=== PATIENT | female | born 1955 | race Caucasian/White ===

== ENCOUNTER 2016-02-13 12:16 | Inpatient (IN) | payer OTHER ==
[~2016-02-13] VITALS: Ht 157.5 cm; Wt 80.0 kg
[2016-02-13] MEDS ORDERED: SOD CHLORIDE 0.9% 1,000 ML IV STA (12:30)
[2016-02-13] MEDS ORDERED: ONDANSETRON INJ 8 MG in DEXTROSE 5% 50 ML IVPB STA (12:30)
[2016-02-13] MEDS ORDERED: morphine 4 MG/ML VIAL IV STA (12:30)
[2016-02-13] MEDS ORDERED: ONDANSETRON 4 MG INJ ONE (12:56)
[2016-02-13] MEDS ORDERED: ONDANSETRON 4 MG INJ IV STA ×2 (12:57→16:21)
[2016-02-13 13:05] LABS: BASOPHILS % 0.2 % (0.0-2.0); EOSINOPHILS % 0.3 % (0.0-7.0); HEMATOCRIT 26.6 % (37.0-47.0); HEMOGLOBIN 8.6 g/dl (12.0-16.0); LYMPHOCYTES # 1.1 10^3/ul (0.8-2.9); LYMPHOCYTES % 10.2 % (15.0-51.0); MEAN CORPUSCULAR HEMOGLOBIN 27.5 pg (29.0-33.0); MEAN CORPUSCULAR HGB CONC 32.3 g/dl (32.0-37.0); MEAN CORPUSCULAR VOLUME 85.2 fl (82.0-101.0); MEAN PLATELET VOLUME 6.6 fl (7.4-10.4); MONOCYTE # 0.7 10^3/ul (0.3-0.9); MONOCYTES % 6.5 % (0.0-11.0); NEUTROPHIL # 8.8 10^3/ul (1.6-7.5); NEUTROPHILS % 82.8 % (39.0-77.0); PLATELET COUNT 284 10^3/UL (140-440); RED BLOOD COUNT 3.12 10^6/ul (4.20-5.40); RED CELL DISTRIBUTION WIDTH 17.2 % (11.5-14.5); UNCORRECTED WBC 10.7 10^3/ul (4.8-10.8); WHITE BLOOD COUNT 10.7 10^3/ul (4.8-10.8)
[2016-02-13 13:06] LABS: CONDITION 1; LH ANALYZER COMMENTS 1
[2016-02-13 13:08] LABS: ALBUMIN 2.9 g/dl (3.3-4.9); CHLORIDE 98 mmol/L (97-110); SODIUM 139 mmol/L (135-144)
[2016-02-13 13:11] LABS: ALANINE AMINOTRANSFERASE 17 IU/L (13-69); ALBUMIN/GLOBULIN RATIO 0.76; ALKALINE PHOSPHATASE 110 IU/L (42-121); ANION GAP 16 (8-16); ASPARTATE AMINO TRANSFERASE 18 IU/L (15-46); BILIRUBIN,INDIRECT 0.4 mg/dl (0-1.1); BILIRUBIN,TOTAL 0.4 mg/dl (0.2-1.3); BLOOD UREA NITROGEN 11 mg/dl (7-20); CALCIUM 9.6 mg/dl (8.4-10.2); CARBON DIOXIDE 29 mmol/L (21-31); CREATININE 0.59 mg/dl (0.44-1.00); GLUCOSE 106 mg/dl (70-220); TOTAL PROTEIN 6.7 g/dl (6.1-8.1)
[2016-02-13 13:12] LABS: INR 1.23; PROTIME 15.6 Sec (12.2-14.2); PT RATIO 1.2
[2016-02-13 13:13] LABS: PARTIAL THROMBOPLASTIN TIME 37.2 Sec (25.0-35.0)
[2016-02-13 13:27] LABS: TROPONIN-I < 0.012 ng/ml (0.00-0.12)
[2016-02-13] MEDS ORDERED: ATEN-51 PO (14:26)
[2016-02-13] MEDS ORDERED: LOV40I SC (14:27)
[2016-02-13] MEDS ORDERED: GLIP5TAB13 PO (14:28)
[2016-02-13] MEDS ORDERED: FOLI-49 PO (14:28)
[2016-02-13] MEDS ORDERED: INSU100C SQ (14:33)
[2016-02-13] MEDS ORDERED: LEVO500T72 PO (14:34)
[2016-02-13] MEDS ORDERED: MECL-77 PO (14:35)
[2016-02-13] MEDS ORDERED: OXYC5CAP17 PO (14:36)
[2016-02-13] MEDS ORDERED: MORP15TA92 PO (14:36)
[2016-02-13] MEDS ORDERED: LACT1CAP47 PO (14:37)
[2016-02-13] MEDS ORDERED: PANT40TA3 PO (14:37)
[2016-02-13] MEDS ORDERED: TRAZ50TA18 PO (14:38)
[2016-02-13] MEDS ORDERED: [UNRECOGNIZED DRUG - CODE] PO (14:38)
[2016-02-13] MEDS ORDERED: ONDA4TAB8 PO (14:39)
[2016-02-13] MEDS ORDERED: ACET-2047 PO (14:39)
[2016-02-13] MEDS ORDERED: IODIXANOL LOCM 100 ML BTL ONE (15:10)
[2016-02-13] MEDS ORDERED: SOD CHLORIDE 0.9% 100 ML ONE (15:10)
--- NOTE | 2016-02-13 15:48 | RADRPT ---
PROCEDURE: CT Abdomen and Pelvis with contrast. CLINICAL INDICATION: Rectal bleeding. TECHNIQUE: Multiple contiguous axial CT images of the abdomen and pelvis were obtained following t he administration of 99 cc of Visipaque 320. Coronal and sagittal reconstructions were also perform ed. CTDIvol (mGy): 17.85; Total Exam DLP (mGy-cm): 1212.30. One or more of the following dose reduction techniques were utilized: - Automated exposure control. - Adjustment of the mA and/or kV according to patient size. - Use of iterative reconstruction technique. COMPARISON: None. FINDINGS: Limited imaging of the lower thorax demonstrates a trace left pleural effusion. Multiple tiny nonca lcified pulmonary nodules are seen throughout the lung bases. The liver and spleen are homogeneous in enhancement. The spleen is mildly enlarged measuring 13.0 cm in a craniocaudal dimension. The liver measures approximately 18.0 cm in a craniocaudal dimension. The gallbladder and right adrenal gland are unremarkable. Mild heterogeneity and nodularity of th e left adrenal gland is observed. Severe fatty replacement of the pancreas is observed. There is a large heterogeneously enhancing mass measuring approximately 10.9 x 10.1 x 7.6 cm which o riginates from the interpolar region of the left kidney. Tumor invasion is seen throughout the left renal vein. Imaging appearance favors the presence of a large renal cell carcinoma. Extension thro ugh the perirenal space into the pararenal space is observed. Nodular thickening and enhancement of the perirenal fascia is present. There is a 4.1 x 2.5 x 3.3 cm enhancing mass within the lateral c onal fascia. A small enhancing nodule is seen within the left paracolic gutter. The abdominal aorta is normal in caliber. Enlarged retroperitoneal/periaortic lymph nodes are presen t. For example, on image [id number], there is a 1.7 cm lymph node. Multiple additional similar slightly smaller lymph nodes are present. The stomach and small and large intestines are unremarkable. The appendix is normal. There are no focal inflammatory changes of the mesentery. There is no mesenteric lymphadenopathy. There is no a scites. The bladder is collapsed. The uterus and adnexa are unremarkable aside from prominent adnexal veins , left greater than right. There is no free pelvic fluid. There is no pelvic sidewall or inguinal l ymphadenopathy. A moderate volume of formed stool is seen within the rectum. Minimal mild concentri c rectal wall thickening with perirectal infiltration are also present suggesting underlying inflamm ation. Lytic lesions are seen within the T11, L1 and L5 vertebral bodies. There is a lytic lesion of the r ight inferior pubic ramus. Multiple lytic lesions of the left lower ribs are present. Body wall so ft tissues are unremarkable. IMPRESSION: Large heterogeneously enhancing mass of the left kidney with invasion of the left renal vein. Imagi ng findings are most compatible with a large renal cell carcinoma. There is extension of tumor beyo nd the perirenal fascia and into the lateral conal fascia and into the paracolic gutter. Neoplastic retroperitoneal lymphadenopathy. Heterogeneous nodular enlargement of the left adrenal gland raises suspicion for adrenal metastasis. Skeletal metastases. Multiple small noncalcified pulmonary nodules throughout the lung bases suggest the presence of pulm onary metastases. Moderate volume of formed stool within the rectum with mild associated concentric rectal wall thicke antonella and dean rectal infiltration. Fecal impaction with underlying rectal inflammation is suspected . RPTAT: HLST .Keke Narvaez MD, Date Time Electronically viewed and signed by .Keke Narvaez MD, on 02/13/2016 15:48 .T/
[2016-02-13] MEDS ORDERED: SOD CHLORIDE 0.9% 250 ML IV ONE (16:02)
--- NOTE | 2016-02-13 16:13 | ERA ---
ER Documentation Chief Complaint Date/Time DATE: 02/13/16 TIME: 16:05 Chief Complaint BIB RA FOR EVAL OF BLOOD IN STOOL THIS AM. HPI Patient is a 61-year-old female who was transferred to the emergency department for evaluation of abdominal pain and rectal bleeding. Unfortunately the patient is a poor historian and is unable to describe the amount or color of the rectal bleeding. She describes the abdominal pain is sharp and located in the right upper quadrant and the left lower quadrant. She denies any flank or back pain. She denies any dysuria or fever. She does complain of some nausea without vomiting. She states that she does not think she has ever had any problems with rectal bleeding before however she does recall having received transfusions in the past. She is nonambulatory and therefore cannot tell me whether she feels dizzy or lightheaded. She denies any chest pain or dyspnea, abnormal bruises or rashes, she does not think she is on any blood thinners. She is unable to tell me why she is in the assisted. ROS All systems reviewed and are negative except as per history of present illness. Medications Home Meds Reported Medications Ondansetron Hcl* (Zofran*) 4 Mg Tablet, 4 MG PO Q8 Y for NAUSEA AND OR VOMITING , TAB 02/13/16 Acetaminophen* (Acetaminophen*) 650 Mg Tablet, 650 MG PO Q6H Y for PAIN AND OR ELEVATED TEMP, #30 TAB 02/13/16 Trazodone Hcl* (Trazodone Hcl*) 50 Mg Tablet, 25 MG PO QHS, #30 TAB 02/13/16 Sunitinib Malate (Sutent) 50 Mg Capsule, 50 MG PO DAILY, CAP 02/13/16 Lactobacillus Acidophilus (Probiotic) 1 Each Capsule, 1 CAP PO DAILY, CAP 02/13/16 Pantoprazole* (Protonix*) 40 Mg Tablet.dr, 40 MG PO DAILY, TAB 02/13/16 Oxycodone Hcl* (IR) (Oxycodone Hcl*) 5 Mg Capsule, 10 MG PO Q4H Y for PAIN, CAP 02/13/16 Morphine Sulfate* (Ms Contin*) 15 Mg Tablet.sa, 15 MG PO Q12 Y for PAIN, TAB 02/13/16 Meclizine Hcl* (Meclizine Hcl*) 25 Mg Tablet, 25 MG PO Q8H Y for DIZZINESS, TAB STARTED 02-12-16 STOP 02-15-16 02/13/16 Levofloxacin* (Levaquin*) 500 Mg Tablet, 500 MG PO DAILY, TAB STARTED 02-11-16 STOP 02-17-16 02/13/16 Insulin Lispro (Humalog) 100 Unit/1 Ml Cartridge, 0 SQ AC MEALS AND BEDTIME 60-149 = 0 UNITS 150-199 = 1 UNIT 200-249 = 2 UNIT 250-299 = 3 UNIT 300-349 = 4 UNIT 350-399 = 5 UNIT ABOVE 400 = 6 UNIT THEN CALL MD CALL MD IF BELOW 60 02/13/16 Glipizide* (Glipizide*) 5 Mg Tablet, 5 MG PO AC BREAKFAST, TAB 02/13/16 Folic Acid* (Folic Acid*) 1 Mg Tablet, 5 MG PO DAILY, TAB 02/13/16 Enoxaparin Sodium* (Enoxaparin Sodium*) 40 Mg/0.4 Ml Syringe, 40 MG SC DAILY, SYR FIRST DAY 02-12-16 LAST DAY 02-21-16 02/13/16 Atenolol* (Atenolol*) 25 Mg Tablet, 25 MG PO DAILY, #30 TAB 02/13/16 Allergies Allergies: Coded Allergies: No Known Allergy (Unverified , 02/13/16) PMhx/Soc Medical and Surgical Hx: pt denies Surgical Hx Hx Cardiac Disorders: Yes (htn) Hx Miscellaneous Medical Probl: Yes (dm, kidney ca) Hx Alcohol Use: Yes (occasionally) Hx Substance Use: No Hx Tobacco Use: No Smoking Status: Never smoker FmHx Family History: diabetes Physical Exam Vitals Vital Signs Date Time Temp Pulse Resp B/P Pulse Ox O2 Delivery O2 Flow Rate FiO2 02/13/16 13:20 86 21 119/71 100 Room Air 02/13/16 12:24 98.3 95 18 168/92 100 Physical Exam Const: Well-developed obese female who appears to be chronically ill lying on the bed Head: Atraumatic normocephalic Eyes: Pale conjunctiva ENT: Normal External Ears, Nose and Mouth. Neck: Full range of motion..~ No meningismus. Resp: Clear to auscultation bilaterally, poor inspiratory effort Cardio: Regular rate and rhythm, no murmurs Abd: Soft, non tender, non distended. Normal bowel sounds Skin: No petechiae or rashes Ext: No cyanosis, or edema Neur: Awake and alert, generally weak rectal: Patient's diaper was full of bright red blood with clots , there were no masses on rectal exam Result Diagram: 02/13/16 1225 02/13/16 1225 Results 24 hrs Laboratory Tests Test 02/13/16 12:25 Activated Partial Thromboplast Time 37.2Sec Alanine Aminotransferase (ALT/SGPT) 17IU/L Albumin 2.9g/dl Albumin/Globulin Ratio 0.76 Alkaline Phosphatase 110IU/L Anion Gap 16 Aspartate Amino Transf (AST/SGOT) 18IU/L Basophils # 0.010^3/ul Basophils % 0.2% Blood Morphology Comment Blood Urea Nitrogen 11mg/dl Calcium Level 9.6mg/dl Carbon Dioxide Level 29mmol/L Chloride Level 98mmol/L Creatinine 0.59mg/dl Direct Bilirubin 0.00mg/dl Eosinophils # 0.010^3/ul Eosinophils % 0.3% Globulin 3.80g/dl Glucose Level 106mg/dl Hematocrit 26.6% Hemoglobin 8.6g/dl INR International Normalized Ratio 1.23 Indirect Bilirubin 0.4mg/dl Lymphocytes # 1.110^3/ul Lymphocytes % 10.2% Mean Corpuscular Hemoglobin 27.5pg Mean Corpuscular Hemoglobin Concent 32.3g/dl Mean Corpuscular Volume 85.2fl Mean Platelet Volume 6.6fl Monocytes # 0.710^3/ul Monocytes % 6.5% Neutrophils # 8.810^3/ul Neutrophils % 82.8% Nucleated Red Blood Cells # 0.010^3/ul Nucleated Red Blood Cells % 0.0/100WBC Platelet Count 69017^3/UL Potassium Level 4.0mmol/L Prothrombin Time 15.6Sec Prothrombin Time Ratio 1.2 Red Blood Count 3.1210^6/ul Red Cell Distribution Width 17.2% Sodium Level 139mmol/L Total Bilirubin 0.4mg/dl Total Protein 6.7g/dl Troponin I < 0.012ng/ml White Blood Count 10.710^3/ul Current Medications Medications (Trade) Dose Ordered Sig/Jose C Route PRN Reason Start Time Stop Time Status Last Admin Dose Admin Sodium Chloride 1,000 ml @ 1,000 mls/hr Q1H STAT IV 02/13/16 12:30 02/13/16 13:29 DC 02/13/16 13:00 Ondansetron HCl/ Dextrose (Zofran Inj/D5W) 54 ml @ 200 mls/hr ONCE STAT IVPB 02/13/16 12:30 02/13/16 12:57 DC Morphine Sulfate (morphine) 4 mg ONCE STAT IV 02/13/16 12:30 02/13/16 12:33 DC 02/13/16 13:00 Ondansetron HCl (Zofran Inj) 4 mg STK-MED ONCE .ROUTE 02/13/16 12:56 02/13/16 12:57 DC Ondansetron HCl (Zofran Inj) 4 mg ONCE STAT IV 02/13/16 12:57 02/13/16 12:58 DC 02/13/16 13:01 IV Flush 10 ml 10 ml STK-MED ONCE .ROUTE 02/13/16 15:10 02/13/16 15:11 DC Sodium Chloride (NS) 100 ml @ ud STK-MED ONCE .ROUTE 02/13/16 15:10 02/13/16 15:11 DC Iodixanol 100 ml 100 ml STK-MED ONCE .ROUTE 02/13/16 15:10 02/13/16 15:11 DC Sodium Chloride (NS) 250 ml @ 0 mls/hr Q0M ONCE IV 02/13/16 16:02 02/13/16 16:05 DC Procedures/MDM EKG: Rate/Rhythm: Normal sinus rhythm at 90 bpm QRS, ST, T-waves: No changes consistent w/ acute ischemia Impression: No evidence of ischemia or arrhythmia 1600: Patient has had a second grossly bloody diaper here with bright red blood and clots. She however remains hemodynamically stable. I have ordered 2 units of packed red cells to be given once available. 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
[2016-02-13] MEDS ORDERED: DOCUSATE SODIUM 100 MG CAP PO PRN (17:00)
[2016-02-13] MEDS ORDERED: BISACODYL 10 MG SUPP PR PRN (17:00)
[2016-02-13] MEDS ORDERED: morphine 2 MG INJ IV PRN (17:00)
[2016-02-13] MEDS ORDERED: MAGNESIUM HYDROXIDE 30ML CUP PO PRN (17:00)
[2016-02-13] MEDS ORDERED: traZODone 50 MG TAB PO PRN (17:00)
[2016-02-13] MEDS ORDERED: ACETAMINOPHEN 325 MG TAB PO PRN (17:00)
[2016-02-13] MEDS ORDERED: NACL 0.9% 3 ML SYG IV SCH (17:00)
[2016-02-13] MEDS ORDERED: MECLIZINE 25 MG TAB PO PRN (17:00)
[2016-02-13] MEDS ORDERED: GLUCOSE GEL 15 GRAM TUBE BUCCAL PRN (17:30)
[2016-02-13] MEDS ORDERED: GLUCAGON 1 MG INJ IM PRN (17:30)
[2016-02-13] MEDS ORDERED: GLUCOSE GEL 15 GRAM TUBE PO PRN ×2 (17:30)
[2016-02-13] MEDS ORDERED: DEXTROSE 50% 50 ML SYRINGE IV PRN ×2 (17:30)
[2016-02-13] MEDS ORDERED: SOD CHLORIDE 0.9% 1,000 ML IV ONE (18:00)
[2016-02-13] MEDS ORDERED: SOD CHLORIDE 0.9% 250 ML IV* ONE (18:19)
--- NOTE | 2016-02-13 18:36 | CONS ---
Date/Time of Note Date/Time of Note DATE: 02/13/16 TIME: 18:31 Assessment/Plan Assessment/Plan Additional Assessment/Plan Rectal bleeding * Evaluate for IBD versus possible metastasis * consents to colonoscopy. Advised of risks/benefits/alternatives of procedure and is agreeable to proceed * Review CT abdomen * PPI drip * Monitor H&H every 6 hours, transfuse 2 units for hemoglobin less than 7.5 * Correct INR with FFP as needed Kidney cancer * Reports diagnosis 1 month from [facility] * Unsure staging and prognosis Abdominal pain/nausea/nonbloody bilious vomiting * Evaluate for PUD * Consents to EGD. Advised of risks/benefits/alternatives of procedure and is agreeable to proceed Further recommendations depend on clinical course, Patient seen in collaboration with Dr. Lee Consultation Date/Type/Reason Admit Date/Time Initial Consult Date Type of Consultation: Gastroenterology Reason for Consultation Rectal bleeding 24 HR Interval Summary Free Text/Dictation 61-year-old obese female transferred to ED with complaints of 1 day of rectal bleeding. Patient currently at [facility] after discharge from [facility] due to inability to ambulate. Patient originally treated at [place] for new kidney cancer diagnosis. Patient unsure of prognosis and staging. Patient denies any treatment for cancer. Patient denies previous episode of rectal bleeding, familial history of colon cancer, IBD, diarrhea, and diverticulosis. Patient also reported intermittent chest pain and dizziness 1 day. Patient reports few episodes of nausea with nonbloody bilious vomiting. Denies hematemesis ( coffee-ground and fady red) and GERD symptoms. Patient also has PMH of recently diagnosed diabetes. Exam/Review of Systems Vital Signs Vitals Vital Signs Date Time Temp Pulse Resp B/P Pulse Ox O2 Delivery O2 Flow Rate FiO2 02/13/16 17:59 75 17 84/57 100 Room Air 02/13/16 12:24 98.3 Exam Constitutional: alert, oriented, well developed Psych: nl mood/affect, no complaints Head: normocephalic Eyes: EOMI ENMT: nl external ears & nose, nl lips & teeth, nl nasal mucosa & septum Respiratory: normal air movement Cardiovascular: regular rate and rhythm Gastrointestinal: soft, tender (Diffuse) 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: SURGICAL COORDINATOR II-XII intact Results Result Diagram: 02/13/16 1225 02/13/16 1225 Results 24 hrs Laboratory Tests Test 02/13/16 12:25 Activated Partial Thromboplast Time 37.2 H Alanine Aminotransferase (ALT/SGPT) 17 Albumin 2.9 L Albumin/Globulin Ratio 0.76 Alkaline Phosphatase 110 Anion Gap 16 Aspartate Amino Transf (AST/SGOT) 18 Basophils # 0.0 Basophils % 0.2 Blood Morphology Comment Blood Urea Nitrogen 11 Calcium Level 9.6 Carbon Dioxide Level 29 Chloride Level 98 Creatinine 0.59 Direct Bilirubin 0.00 Eosinophils # 0.0 Eosinophils % 0.3 Globulin 3.80 H Glucose Level 106 Hematocrit 26.6 L Hemoglobin 8.6 L INR International Normalized Ratio 1.23 Indirect Bilirubin 0.4 Lymphocytes # 1.1 Lymphocytes % 10.2 L Mean Corpuscular Hemoglobin 27.5 L Mean Corpuscular Hemoglobin Concent 32.3 Mean Corpuscular Volume 85.2 Mean Platelet Volume 6.6 L Monocytes # 0.7 Monocytes % 6.5 Neutrophils # 8.8 H Neutrophils % 82.8 H Nucleated Red Blood Cells # 0.0 Nucleated Red Blood Cells % 0.0 Platelet Count 284 Potassium Level 4.0 Prothrombin Time 15.6 H Prothrombin Time Ratio 1.2 Red Blood Count 3.12 L Red Cell Distribution Width 17.2 H Sodium Level 139 Total Bilirubin 0.4 Total Protein 6.7 Troponin I < 0.012 White Blood Count 10.7 Medications Medications Current Medications Folic Acid (Folic Acid) 5 mg DAILY PO ; Start 02/14/16 at 09:00 Meclizine HCl (Antivert) 25 mg Q8H PRN PO DIZZINESS; Start 02/13/16 at 17:00 Morphine Sulfate (Ms Contin (Er)) 15 mg Q12 PO ; Start 02/13/16 at 21:00 Oxycodone HCl (Roxicodone) 10 mg Q4H PRN PO PAIN; Start 02/13/16 at 17:00 Sunitinib (Sutent) 50 mg DAILY PO ; Start 02/14/16 at 09:00; Status UNV Trazodone HCl (Desyrel) 25 mg QHS PRN PO INSOMNIA; Start 02/13/16 at 17:00 Lactobacillus Acidoph/ Bulgaricus 1 tab 1 tab DAILY PO ; Start 02/14/16 at 09:00 Sodium Chloride (NS) 1,000 ml @ 100 mls/hr Q10H IV ; Start 02/13/16 at 21:00 Ondansetron HCl (Zofran Inj) 4 mg Q6H PRN IV NAUSEA AND/OR VOMITING; Start 02/12 at 17:00 Acetaminophen (Tylenol Tab) 650 mg Q6H PRN PO PAIN LEVEL 1-3 OR FEVER; Start at 17:00 Morphine Sulfate (morphine) 2 mg Q4H PRN IV PAIN LEVEL 7-10; Start 02/13/16 at 17:00 Docusate Sodium (Colace) 100 mg Q12H PRN PO CONSTIPATION; Start 02/13/16 at 17: 00 Magnesium Hydroxide (Milk Of Mag) 30 ml DAILY PRN PO CONSTIPATION; Start at 17:00 Bisacodyl (Dulcolax Supp) 10 mg DAILY PRN NC CONSTIPATION; Start 02/13/16 at 17: 00 Pantoprazole (Protonix Iv) 40 mg DAILY@06 IV ; Start 02/14/16 at 06:00 Phytonadione 10 mg 10 mg ONCE ONCE SC ; Start 02/13/16 at 21:00; Stop 02/13/16 at 21:01 Levofloxacin/ Dextrose (Levaquin 500mg/ D5W 100 ml (Pmx)) 100 ml @ 100 mls/hr ONCE ONCE IVPB ; Start 02/13/16 at 21:00; Stop 02/13/16 at 21:59 Insulin Aspart (Novolog Insulin Pen) NOVOLOG *MILD* ALGORI... Q4 SC ; Start 02/12 at 21:00 Miscellaneous Information 1 ea NOTE XX ; Start 02/13/16 at 17:30 Glucose (Glutose) 15 gm Q15M PRN PO DECREASED GLUCOSE; Start 02/13/16 at 17:30 Glucose (Glutose) 22.5 gm Q15M PRN PO DECREASED GLUCOSE; Start 02/13/16 at 17:30 Dextrose (D50w Syringe) 25 ml Q15M PRN IV DECREASED GLUCOSE; Start 02/13/16 at 17:30 Dextrose (D50w Syringe) 50 ml Q15M PRN IV DECREASED GLUCOSE; Start 02/13/16 at 17:30 Glucagon (Glucagen) 1 mg Q15M PRN IM DECREASED GLUCOSE; Start 02/13/16 at 17:30 Glucose (Glutose) 15 gm Q15M PRN BUCCAL DECREASED GLUCOSE; Start 02/13/16 at 17: 30 Miscellaneous Information MEDICATION REQUIRES CLARIFICATI... Q8H XX ; Start 02/13/16 at 17:30 Sodium Chloride 1,000 ml @ 1,000 mls/hr Q1H ONCE IV Last administered on t 17:51; Admin Dose 1,000 MLS/HR; Start 02/13/16 at 18:00; Stop 02/13/16 at 18: 59 Sodium Chloride (NS) 250 ml @ 0 mls/hr Q0M ONCE IV* ; Start 02/13/16 at 18:19; Stop 02/13/16 at 18:20; Status ROBERTO TATUM Feb 13, 2016 18:36
--- NOTE | 2016-02-13 19:33 | HP ---
DATE OF ADMISSION: 02/13/2016 PRIMARY CARE PHYSICIAN: None. REFERRING ONCOLOGIST: Shoaib Lang MD CHIEF COMPLAINT ON ADMISSION: Transfer from a local retirement facility with active rectal bleeding. HISTORY OF PRESENT ILLNESS: This is a 61-year-old female with a recent diagnosis of metastatic spindle cell carcinoma (sarcoma), diabetes mellitus; hypertension. She has been on atenolol along with sliding scale insulin as an outpatient. Patient also has been on Lovenox for DVT prophylaxis and was recently discharged from [facility] on 02/11/2016, where she was admitted with generalized weakness. 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 On admission there, she was noted to have generalized weakness and also episodes of hematuria that resolved by the time of discharge. At the time of discharge, her hemoglobin was around 10.4. The patient denies any previous GI bleeding, and specifically, no previous history of rectal bleeding. She has been at the retirement [facility] and since 02/11/2016; therefore, 48 hours ago. She was discharged on Levaquin for a urinary tract infection. Today, she was noted to have a large amount of blood through the rectum with clots. She was noted to be pale; therefore, transferred via 911 from [facility] to [facility]. Here in the ER, she is noted to be pale. She has pale icterus. She had gross acute rectal bleeding with clots in large amount in her diaper. Her blood pressure has been in the upper and she is visibly and significantly severely weak and lethargic. Her labs drawn upon arrival reported a hemoglobin of 8.9, which has already dropped from 2 days ago , but likely this hemoglobin is even lower, as she is definitely symptomatic from her anemia and ongoing bleeding currently. She had a CAT scan of the abdomen and pelvis here which basically showed metastatic carcinoma, with a large heterogeneous enhancing mass of the left kidney, with invasion of the left renal vein. Also neoplastic retroperitoneal lymphadenopathy, pulmonary metastasis, mild associated concentric rectal wall thickening and perirectal infiltration. The patient is being transfused currently 2 units of packed red blood cells based on her significant drop in hemoglobin and likely even lower than what is reported here and symptomatic anemia. Also, her INR is 1.23 in setting of acute bleeding; therefore, she will receive FFP, plus a possible transfusion. I will also give her a dose of vitamin K. Gastroenterology has been consulted, Dr. Lee, his physician office administrative assistant, is seeing the patient currently, and likely the patient will need to be scoped by tomorrow. I will continue her home medication; however, she was on a chemotherapeutic agent, apparently. I will have Dr. Horn or Dr. Lang see the patient while she is here, in order to reevaluate her diagnosis, prognosis, and recommendation for treatments. The patient is being admitted to telemetry for now with a possible upgrade to ICU, if needed. SHE IS FULL CODE; unfortunately, with serious diagnosis of metastatic carcinoma and now rectal bleeding. ALLERGIES: NO KNOWN ALLERGIES. PAST MEDICAL HISTORY: Includes: 1. A recent diagnosis of metastatic spindle cell carcinoma with involvement of the lung, the bones and retroperitoneal lymphadenopathy on CAT scan. 2. Hypertension. 3. Diabetes mellitus. 4. Generalized weakness that has been ongoing. PAST SURGICAL HISTORY: None, except for kidney biopsy done at [facility] at the time of diagnosis last year. SOCIAL HISTORY: The patient lives with family. She denies any history of smoking. She very rarely drinks, maybe once every 3 years, occasionally. REVIEW OF SYSTEMS: As per HPI. The patient currently denying hematuria but severe rectal bleeding is noted. No hematemesis. No nausea or vomiting. She is actually hungry and thirsty currently. No chest pain. No shortness of breath, just generalized weakness. No fevers. No chills. No diaphoresis. OUTPATIENT MEDICATION 1. Levaquin 500 mg p.o. daily. 2. Sunitinib malate 50 mg p.o. daily. 3. Lovenox 40 mg subcutaneously daily. 4. Atenolol 25 mg daily p.o. 5. Tylenol 650 mg p.o. q.6h. p.r.n. pain. 6. MS Contin 15 mg p.o. q.12h. 7. Oxycodone 10 mg p.o. q.4h. p.r.n. pain. 8. Trazodone 25 mg p.o. at bedtime p.r.n. insomnia. 9. Probiotic 1 tab p.o. daily. 10. Meclizine 25 mg p.o. q8h. p.r.n. dizziness. 11. Zofran 4 mg p.o. q.8h. p.r.n. nausea, vomiting. 12. Protonix 40 mg p.o. daily. 13. Glipizide 5 mg p.o. q.a.c. 14. Lispro sliding scale insulin q.a.c. and at bedtime. 15. Folic acid 5 mg p.o. daily. PHYSICAL EXAMINATION VITAL SIGNS: Temperature 98.3, blood pressure latest 184/54 - this is prior to blood transfusion. Patient is saturating 100% on room air, respiratory rate of 17. GENERAL: She is alert, oriented x4. She is lethargic. She seems tired and she is notably pale with some areas of ecchymosis on her arms. HEENT: Pupils are equally round and reactive to light. Extraocular muscles are intact. Anicteric sclerae, but pale sclerae noted. NECK: No JVD, no thyromegaly. HEART: Regular rate and rhythm. LUNGS: Clear to auscultation bilaterally. ABDOMEN: Soft, nondistended; however, she does have tenderness to palpation, left flank area, left lower abdomen, all the suprapubic area and lower abdomen area bilaterally, from left to right. Again, was noted, large amount of blood and clots in her diaper from her rectal area. EXTREMITIES: Lower extremity no edema, clubbing or cyanosis. Again, patient is noted to be pale. NEUROLOGIC: Grossly intact, but generalized weakness noted. LABORATORY DATA: White blood cell count 10.7, hemoglobin 8.6, hematocrit 26.6, platelet count of 284. Chemistry with sodium of 139, potassium 4.0, chloride 98 , bicarbonate 29, BUN 11, creatinine 0.59, glucose of 106, calcium 9.6, total bilirubin 0.4, AST 18, ALT 17, alkaline phosphatase 110. Troponin less than 0.012. Total protein 6.7, albumin of 2.9. INR is 1.23, PT 15.6, PTT 37.2. ELECTROCARDIOGRAM: Sinus rhythm with a short MO. RADIOLOGICAL DATA: CAT scan of the abdomen and pelvis is showing large heterogeneous enhancing mass, left kidney, with invasion of the left renal vein , compatible with large renal cell carcinoma. Extension of tumor beyond the perirenal facia into the lateral conal fascia, and into the pericolic gutter. Neoplastic retroperitoneal lymphadenopathy. Atherogenesis nodular enlargement of the left adrenal gland, suspicious for adrenal metastasis, skeletal metastasis. Multiple small, noncalcified pulmonary nodules throughout lung bases, consistent with pulmonary metastasis, which is already known and noted previously. She is also noted to have possibly fecal impaction, but this may be actually blood and clots that were seen viscerally. ASSESSMENT AND PLAN This is a 61-year-old, unfortunate female with: 1. Acute significant rectal bleeding with a drop in hemoglobin, symptomatic anemia. She is getting 2 units of packed red blood cells right now, with subsequent H and H. She is also going to get FFP. Clear liquids for now, n.p.o. after breakfast. GI is consulted. We will keep a close eye on her. I am also concerned seeing this left renal vein invasion; that the patient could be having, actually, a vascular bleed from there. Therefore, close monitoring and we will consult vascular surgery, if needed. 2. Metastatic spindle cell carcinoma, with metastasis to Lung, bones and large left renal and adrenal masses PATIENT IS FULL CODE. She is on oral chemotherapeutic agent currently. I will contact Dr. Lang and have oncology see the patient on this admission. 3. Hypertension. Given her acute bleeding and hypotensive episodes, we will discontinue atenolol for now. 4. Diabetes mellitus, minimal intake. I will discontinue the Glipizide. We will keep her on the sliding scale insulin. 5. Lethargic, generalized weakness. Most likely related to acute bleeding currently. We will continue to monitor. 6. Urinary tract infection, diagnosed from outside hospital. Has been on Levaquin. We will continue Levaquin for now, and get final cultures from [facility] to see if any adjustments are needed. 7. Coagulopathy, most likely related to metastatic disease. We will give her again FFP in setting of acute bleeding, vitamin K x1 and monitor INR. 8. Prophylaxis. Protonix for gastrointestinal prophylaxis. SCDs to lower extremity for deep vein thrombosis prophylaxis. DISPOSITION: The patient is admitted to telemetry; however, if need be, she may be upgraded to ICU. Blood transfusion with packed red blood cells and FFP. Close monitoring. Oncology consult in the morning. GI consult already placed and seeing patient currently. Dictated By: JOSE SALMERON/JEANE Conf#: [id number] DID#: [id number] CC: SHOAIB LANG MD;*EndCC* MTDD
[2016-02-13] MEDS ORDERED: BISACODYL (EC) 5 MG TAB PO ONE ×2 (20:00→23:00)
[2016-02-13] MEDS ORDERED: MAGNESIUM CITRATE 300 ML BTL PO ONE (20:00)
[2016-02-13 20:26] VITALS: PULSE 88
[2016-02-13 21:00] VITALS: Ht 157.5 cm; Wt 80.0 kg
[2016-02-13] MEDS ORDERED: PHYTONADIONE 10 MG/ML INJ SC ONE (21:00)
[2016-02-13] MEDS ORDERED: POLYETHYLENE GLYCOL 3350 119 GM POWDER PO ONE ×2 (21:00→23:00)
[2016-02-13] MEDS ORDERED: LEVOFLOXACIN 500MG/D5W (PMX) 100 ML IVPB ONE (21:00)
[2016-02-13 21:05] VITALS: BP 108/62; RESP 18
[2016-02-13] MEDS: PANTOPRAZOLE IV 80 MG in SOD CHLORIDE 0.9% 100 ML IV SCH (22:46)
[2016-02-13] MEDS: SOD CHLORIDE 0.9% 1,000 ML IV SCH (22:46)
[2016-02-13] MEDS: morphine (ER) 15 MG TAB PO SCH (22:47)
[2016-02-13] MEDS: INSULIN ASPART [NOVOLOG] 3 ML PEN SC SCH (23:22)
[2016-02-14] VITALS (17 sets, daily range): BP systolic 92–134; BP diastolic 53–72; PULSE 80–112; RESP 14–25
[2016-02-14] MEDS: INSULIN ASPART [NOVOLOG] 3 ML PEN SC SCH ×6 (01:19→21:00)
[2016-02-14] MEDS: [UNRECOGNIZED DRUG - REMARK] XX SCH ×4 (01:20→17:27)
[2016-02-14] MEDS: ONDANSETRON 4 MG INJ IV PRN (01:44)
[2016-02-14] MEDS: PANTOPRAZOLE IV 80 MG in SOD CHLORIDE 0.9% 100 ML IV SCH ×2 (05:17→16:20)
[2016-02-14] MEDS ORDERED: PANTOPRAZOLE 40 MG INJ IV SCH (06:00)
[2016-02-14] MEDS: LACTULOSE ENEMA 1,000 ML BTL PR SCH ×6 (07:00→16:21)
--- NOTE | 2016-02-14 08:37 | RADRPT ---
PROCEDURE: US Abdomen Complete. CLINICAL INDICATION: Abdominal pain, history of kidney cancer/ TECHNIQUE: Multiple real-time images were acquired of the patient's abdomen and retroperitoneum ut ilizing a high resolution transducer. COMPARISON: CT abdomen/pelvis from 02/13/2016 FINDINGS: The liver measures 19.0 cm and demonstrates coarsened echotexture. There is no intrahepatic biliary ductal dilatation. The extrahepatic common bile duct measures 5 mm. The main portal vein is patent w ith proper directional flow. The gallbladder is without stones, wall thickening, or pericholecystic fluid. The visualized pancreas is unremarkable. The spleen measures 14.6 cm. The right kidney measures 10.9 cm. The left kidney measures 12.4 cm. There are no renal calculi or h ydronephrosis bilaterally. There is a 1.8 cm hypoechoic and possibly cystic lesion projecting from the upper pole of the right kidney. No vascular flow is noted within it. The left kidney as abnormal with a heterogeneous 9.5 x 6.0 x 9.1 cm solid mass with minimal vascular flow noted to arise from its mid pole. There is a similar round 5.1 cm heterogeneous mass projecti ng off the lower pole of the left kidney. Immediately inferior to the left kidney, there is a simil ar 4.6 x 3.9 x 5.0 cm heterogeneous mass. The visualized abdominal aorta and IVC are grossly unremarkable. IMPRESSION: Markedly abnormal left kidney with a large heterogeneous 9.5 cm mass arising from its mid pole as we ll as a similar 5.1 cm mass projecting off its lower pole and a 5 cm mass immediately below its lowe r pole. Findings correlate with similar lesions seen in and below the left kidney on the CT study f rom yesterday which are highly suspicious for renal cell carcinoma. The liver is enlarged and demonstrates coarsened echotexture which is nonspecific and can be seen wi th fatty infiltration although early chronic liver disease can have a similar appearance. No defini te morphologic changes of cirrhosis are identified. No cholelithiasis or acute cholecystitis. Normal CBD. Mild splenomegaly. RPTAT: EE Physician Gracia Date Time Electronically viewed and signed by Physician Gracia on 02/14/2016 08:36 RA/
[2016-02-14] MEDS: SOD CHLORIDE 0.9% 1,000 ML IV SCH ×2 (08:42→16:21)
[2016-02-14] MEDS: FOLIC ACID 1 MG TAB PO SCH (08:43)
[2016-02-14] MEDS: LACTOBACILLUS CHEW TAB PO SCH (08:43)
[2016-02-14] MEDS: morphine (ER) 15 MG TAB PO SCH ×2 (08:43→20:30)
[2016-02-14] MEDS ORDERED: SUNITINIB PO SCH (09:00)
[2016-02-14 14:34] LABS: BASOPHIL # 0.1 10^3/ul (0.0-0.1); BASOPHILS % 0.8 % (0.0-2.0); EOSINOPHILS % 0.2 % (0.0-7.0); HEMATOCRIT 23.1 % (37.0-47.0); HEMOGLOBIN 7.7 g/dl (12.0-16.0); LYMPHOCYTES # 0.9 10^3/ul (0.8-2.9); LYMPHOCYTES % 10.5 % (15.0-51.0); MEAN CORPUSCULAR HGB CONC 33.2 g/dl (32.0-37.0); MEAN CORPUSCULAR VOLUME 87.1 fl (82.0-101.0); MEAN PLATELET VOLUME 7.1 fl (7.4-10.4); MONOCYTE # 0.4 10^3/ul (0.3-0.9); MONOCYTES % 4.7 % (0.0-11.0); NEUTROPHIL # 7.1 10^3/ul (1.6-7.5); NEUTROPHILS % 83.8 % (39.0-77.0); PLATELET COUNT 128 10^3/UL (140-440); RED BLOOD COUNT 2.65 10^6/ul (4.20-5.40); RED CELL DISTRIBUTION WIDTH 15.8 % (11.5-14.5); UNCORRECTED WBC 8.5 10^3/ul (4.8-10.8); WHITE BLOOD COUNT 8.5 10^3/ul (4.8-10.8)
[2016-02-14 14:41] LABS: CONDITION 1; LH ANALYZER COMMENTS 1; SUSPECT 1
[2016-02-14 14:42] LABS: ALBUMIN 2.5 g/dl (3.3-4.9)
[2016-02-14 14:43] LABS: INR 1.05; PROTIME 13.7 Sec (12.2-14.2); PT RATIO 1.1
[2016-02-14 14:43] LABS: POTASSIUM 4.2 mmol/L (3.5-5.1)
[2016-02-14 14:45] LABS: ALBUMIN/GLOBULIN RATIO 0.78; BILIRUBIN,INDIRECT 0.7 mg/dl (0-1.1); BILIRUBIN,TOTAL 0.7 mg/dl (0.2-1.3); CREATININE 0.59 mg/dl (0.44-1.00); TOTAL PROTEIN 5.7 g/dl (6.1-8.1)
[2016-02-14 14:46] LABS: CALCIUM 8.6 mg/dl (8.4-10.2); MAGNESIUM 1.9 mg/dl (1.7-2.5)
--- NOTE | 2016-02-14 15:46 | PN ---
Date/Time of Note Date/Time of Note DATE: 02/14/16 TIME: 15:28 Assessment/Plan VTE Prophylaxis VTE Prophylaxis Intervention: SCD's Lines/Catheters IV [facility]from [facility] Urinary Cath still in place: No Assessment/Plan Assessment/Plan 61-year-old, unfortunate female with: 1. Acute significant rectal bleeding with a drop in hemoglobin, symptomatic anemia. S/p 2 units pRBC and 2 units FFP, repeat HB at 7.7, she is going to get 2 more units of pRBC Colonoscopy today. And further recs to follow 2. Metastatic spindle cell carcinoma, with metastasis to Lung, bones and large left renal and adrenal masses PATIENT IS FULL CODE. She is or is to be on oral chemotherapeutic agent. Dr. Bejarano or covering physician to see the patient on this admission. 3. Hypertension. Discontinue Atenolol for now. 4. Diabetes mellitus, minimal intake. Sliding scale insulin. 5. Lethargic, generalized weakness. Most likely related to acute bleeding currently. Continue to monitor and transfusing additional 2 units pRBC today dean procedure 6. Urinary tract infection diagnosed at [facility]. Continue Levaquin. 7. Coagulopathy, most likely related to metastatic disease. We will give her again FFP in setting of acute bleeding, vitamin K x1 and monitor INR. 8. Prophylaxis. Protonix for gastrointestinal prophylaxis. SCDs to lower extremity for deep vein thrombosis prophylaxis. DISPOSITION: The patient is admitted to telemetry; however, if need be, she may be upgraded to ICU. Blood transfusion with packed red blood cells and FFP. Close monitoring. Oncology consult in the morning. GI consult already placed and seeing patient currently. Subjective 24 Hr Interval Summary Free Text/Dictation Patient stable but still with ongoing bleeding Hb at 7.7 post transfusion and to receive additional 2 units pRBC Being prepped for colonoscopy currently Exam/Review of Systems Vital Signs Vitals Vital Signs Date Time Temp Pulse Resp B/P Pulse Ox O2 Delivery O2 Flow Rate FiO2 02/14/16 12:31 89 02/14/16 11:20 97.9 18 118/68 96 02/13/16 19:38 Room Air Intake and Output 02/13/16 02/13/16 02/14/16 15:00 23:00 07:00 Intake Total 350 ml 1050 ml Output Total 800 ml Balance 350 ml 250 ml Exam Constitutional: alert, obese, oriented, other (lethargic ) Respiratory: clear to auscultation, normal air movement Cardiovascular: nl pulses, regular rate and rhythm Gastrointestinal: non-tender, soft Musculoskeletal: nl extremities to inspection Extremities: normal pulses, other (no edema, clubbing or cyanosis ) 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: [employer] II-XII intact, nl mental status, nl speech, nl strength Results Result Diagram: 02/14/16 1420 02/14/16 1420 Results 24 hrs Laboratory Tests Test 02/13/16 23:18 02/14/16 01:10 02/14/16 03:21 02/14/16 04:30 Bedside Glucose 205 193 161 138 Test 02/14/16 08:13 02/14/16 12:21 02/14/16 14:20 Bedside Glucose 110 118 Activated Partial Thromboplast Time Pending Alanine Aminotransferase (ALT/SGPT) 26 Albumin 2.5 L Albumin/Globulin Ratio 0.78 Alkaline Phosphatase 75 Anion Gap 12 Aspartate Amino Transf (AST/SGOT) 20 Basophils # 0.1 Basophils % 0.8 Blood Morphology Comment Blood Urea Nitrogen 15 Calcium Level 8.6 Carbon Dioxide Level 25 Chloride Level 105 Creatinine 0.59 Direct Bilirubin 0.00 Eosinophils # 0.0 Eosinophils % 0.2 Globulin 3.20 Glucose Level 98 Hematocrit 23.1 L Hemoglobin 7.7 L INR International Normalized Ratio 1.05 Indirect Bilirubin 0.7 Lymphocytes # 0.9 Lymphocytes % 10.5 L Magnesium Level 1.9 Mean Corpuscular Hemoglobin 29.0 Mean Corpuscular Hemoglobin Concent 33.2 Mean Corpuscular Volume 87.1 Mean Platelet Volume 7.1 L Monocytes # 0.4 Monocytes % 4.7 Neutrophils # 7.1 Neutrophils % 83.8 H Nucleated Red Blood Cells # 0.0 Nucleated Red Blood Cells % 0.0 Platelet Count 128 #L Potassium Level 4.2 Prothrombin Time 13.7 Prothrombin Time Ratio 1.1 Red Blood Count 2.65 L Red Cell Distribution Width 15.8 H Sodium Level 138 Total Bilirubin 0.7 Total Protein 5.7 #L White Blood Count 8.5 # Medications Medications Current Medications Folic Acid (Folic Acid) 5 mg DAILY PO ; Start 02/14/16 at 09:00 Meclizine HCl (Antivert) 25 mg Q8H PRN PO DIZZINESS; Start 02/13/16 at 17:00 Morphine Sulfate (Ms Contin (Er)) 15 mg Q12 PO Last administered on 02/13/16 22 :47; Admin Dose 15 MG; Start 02/13/16 at 21:00 Oxycodone HCl (Roxicodone) 10 mg Q4H PRN PO PAIN; Start 02/13/16 at 17:00 Sunitinib (Sutent) 50 mg DAILY PO ; Start 02/14/16 at 09:00; Status UNV Trazodone HCl (Desyrel) 25 mg QHS PRN PO INSOMNIA; Start 02/13/16 at 17:00 Lactobacillus Acidoph/ Bulgaricus 1 tab 1 tab DAILY PO ; Start 02/14/16 at 09:00 Sodium Chloride (NS) 1,000 ml @ 100 mls/hr Q10H IV Last administered on 08:42; Admin Dose 100 MLS/HR; Start 02/13/16 at 21:00 Ondansetron HCl (Zofran Inj) 4 mg Q6H PRN IV NAUSEA AND/OR VOMITING Last administered on 02/14/16 01:44; Admin Dose 4 MG; Start 02/13/16 at 17:00 Acetaminophen (Tylenol Tab) 650 mg Q6H PRN PO PAIN LEVEL 1-3 OR FEVER; Start at 17:00 Morphine Sulfate (morphine) 2 mg Q4H PRN IV PAIN LEVEL 7-10; Start 02/13/16 at 17:00 Docusate Sodium (Colace) 100 mg Q12H PRN PO CONSTIPATION; Start 02/13/16 at 17: 00 Magnesium Hydroxide (Milk Of Mag) 30 ml DAILY PRN PO CONSTIPATION; Start at 17:00 Bisacodyl (Dulcolax Supp) 10 mg DAILY PRN VT CONSTIPATION; Start 02/13/16 at 17: 00 Insulin Aspart (Novolog Insulin Pen) NOVOLOG *MILD* ALGORI... Q4 SC Last administered on 02/14/16 01:19; Admin Dose 2 UNIT; Start 02/13/16 at 21:00 Miscellaneous Information 1 ea NOTE XX ; Start 02/13/16 at 17:30 Glucose (Glutose) 15 gm Q15M PRN PO DECREASED GLUCOSE; Start 02/13/16 at 17:30 Glucose (Glutose) 22.5 gm Q15M PRN PO DECREASED GLUCOSE; Start 02/13/16 at 17:30 Dextrose (D50w Syringe) 25 ml Q15M PRN IV DECREASED GLUCOSE; Start 02/13/16 at 17:30 Dextrose (D50w Syringe) 50 ml Q15M PRN IV DECREASED GLUCOSE; Start 02/13/16 at 17:30 Glucagon (Glucagen) 1 mg Q15M PRN IM DECREASED GLUCOSE; Start 02/13/16 at 17:30 Glucose (Glutose) 15 gm Q15M PRN BUCCAL DECREASED GLUCOSE; Start 02/13/16 at 17: 30 Miscellaneous Information MEDICATION REQUIRES CLARIFICATI... Q8H XX ; Start 02/13/16 at 17:30 Pantoprazole/ Sodium Chloride (Protonix Iv/NS) 100 ml @ 10 mls/hr Q10H IV Last administered on 02/14/16 05:17; Admin Dose 10 MLS/HR; Start 02/13/16 at 19: 00 Lactulose (Lactulose Enema) 60 ml Q1HWA VT Last administered on 02/14/16 08:43 ; Admin Dose 60 ML; Start 02/14/16 at 04:00 JOSE TORIBIO Feb 14, 2016 15:40
[2016-02-14] MEDS ORDERED: PROPOFOL 20 ML ONE (17:46)
[2016-02-14] MEDS ORDERED: FUROSEMIDE 20 MG INJ IV ONE (22:00)
[2016-02-15] VITALS (12 sets, daily range): BP systolic 110–137; BP diastolic 58–73; PULSE 94–109; RESP 16–20
[2016-02-15] MEDS: INSULIN ASPART [NOVOLOG] 3 ML PEN SC SCH ×6 (01:00→22:02)
[2016-02-15] MEDS: PANTOPRAZOLE IV 80 MG in SOD CHLORIDE 0.9% 100 ML IV SCH ×3 (01:00→20:56)
[2016-02-15] MEDS: [UNRECOGNIZED DRUG - REMARK] XX SCH ×3 (01:30→17:30)
[2016-02-15] MEDS ORDERED: FUROSEMIDE 20 MG INJ IV ONE (02:00)
[2016-02-15] MEDS: SOD CHLORIDE 0.9% 1,000 ML IV SCH ×3 (04:30→22:56)
[2016-02-15 07:44] LABS: EOSINOPHILS % 0.4 % (0.0-7.0); HEMATOCRIT 30.3 % (37.0-47.0); HEMOGLOBIN 10.4 g/dl (12.0-16.0); LYMPHOCYTES # 0.8 10^3/ul (0.8-2.9); LYMPHOCYTES % 6.8 % (15.0-51.0); MEAN CORPUSCULAR HEMOGLOBIN 30.1 pg (29.0-33.0); MEAN CORPUSCULAR HGB CONC 34.3 g/dl (32.0-37.0); MEAN PLATELET VOLUME 6.9 fl (7.4-10.4); MONOCYTE # 0.9 10^3/ul (0.3-0.9); MONOCYTES % 7.7 % (0.0-11.0); NEUTROPHILS % 85.1 % (39.0-77.0); PLATELET COUNT 114 10^3/UL (140-440); RED BLOOD COUNT 3.45 10^6/ul (4.20-5.40); RED CELL DISTRIBUTION WIDTH 16.8 % (11.5-14.5); UNCORRECTED WBC 11.7 10^3/ul (4.8-10.8); WHITE BLOOD COUNT 11.7 10^3/ul (4.8-10.8)
[2016-02-15 07:46] LABS: CONDITION 1; LH ANALYZER COMMENTS 1
[2016-02-15 07:50] LABS: POTASSIUM 3.4 mmol/L (3.5-5.1)
[2016-02-15 07:53] LABS: CREATININE 0.55 mg/dl (0.44-1.00)
[2016-02-15 07:54] LABS: CALCIUM 8.6 mg/dl (8.4-10.2)
[2016-02-15 08:07] LABS: MAGNESIUM 1.7 mg/dl (1.7-2.5); PHOSPHORUS 2.7 mg/dl (2.5-4.9)
[2016-02-15] MEDS: LACTOBACILLUS CHEW TAB PO SCH (08:53)
[2016-02-15] MEDS: FOLIC ACID 1 MG TAB PO SCH (08:53)
[2016-02-15] MEDS: morphine (ER) 15 MG TAB PO SCH ×2 (08:54→22:01)
--- NOTE | 2016-02-15 11:47 | CONS ---
Date/Time of Note Date/Time of Note DATE: 02/15/16 TIME: 11:46 Assessment/Plan Assessment/Plan Additional Assessment/Plan Rectal bleeding * Evaluate for IBD versus possible metastasis * Colonoscopy not completed due to poor prep. Will repeat if stool OB positive or precipitous drop in hemoglobin * CT abdomen * 1. Large heterogeneously enhancing mass of the left kidney with invasion of the left renal vein. 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 There is extension of tumor beyond the perirenal fascia and into the lateral conal fascia and into the paracolic gutter. * 2. Neoplastic retroperitoneal lymphadenopathy. * 3. Heterogeneous nodular enlargement of the left adrenal gland raises suspicion for adrenal metastasis. * 4. Skeletal metastases. * 5. Multiple small noncalcified pulmonary nodules throughout the lung bases suggest the presence of pulmonary metastases. * 6. Moderate volume of formed stool within the rectum with mild associated concentric rectal wall thickening and dean rectal infiltration. Fecal impaction with underlying rectal inflammation is suspected. * PPI drip * Monitor H&H every 6 hours, transfuse 2 units for hemoglobin less than 7.5 * Correct INR with FFP as needed Kidney cancer * Reports diagnosis 1 month from [facility] * Unsure staging and prognosis Abdominal pain/nausea/nonbloody bilious vomiting * Evaluate for PUD * Gastritis. Biopsies collected. Further recommendations depend on clinical course, Patient seen in collaboration with Dr. Lee Consultation Date/Type/Reason Admit Date/Time Feb 13, 2016 at 16:04 Type of Consultation: Gastroenterology 24 HR Interval Summary Free Text/Dictation Tolerating clears Reporting nausea but denies vomiting and abdominal pain If stool OB is positive or precipitous drop in hemoglobin, will recommend repeat colonoscopy Exam/Review of Systems Vital Signs Vitals Vital Signs Date Time Temp Pulse Resp B/P Pulse Ox O2 Delivery O2 Flow Rate FiO2 02/15/16 11:39 98.0 102 20 119/64 95 02/15/16 04:00 Room Air 02/14/16 17:44 10.0 Intake and Output 02/14/16 02/14/16 02/15/16 15:00 23:00 07:00 Intake Total 2200 ml Balance 2200 ml Exam Constitutional: alert, oriented, well developed Psych: nl mood/affect, no complaints Head: normocephalic Eyes: EOMI ENMT: nl external ears & nose, nl lips & teeth, nl nasal mucosa & septum Respiratory: normal air movement Cardiovascular: regular rate and rhythm Gastrointestinal: soft, tender (Diffuse) 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 Results Result Diagram: 02/15/16 0649 02/15/16 0649 Results 24 hrs Laboratory Tests Test 02/14/16 12:21 02/14/16 14:20 02/14/16 16:00 02/14/16 16:59 Bedside Glucose 118 122 Alanine Aminotransferase (ALT/SGPT) 26 Albumin 2.5 L Albumin/Globulin Ratio 0.78 Alkaline Phosphatase 75 Anion Gap 12 Aspartate Amino Transf (AST/SGOT) 20 Basophils # 0.1 Basophils % 0.8 Blood Morphology Comment Blood Urea Nitrogen 15 Calcium Level 8.6 Carbon Dioxide Level 25 Chloride Level 105 Creatinine 0.59 Direct Bilirubin 0.00 Eosinophils # 0.0 Eosinophils % 0.2 Globulin 3.20 Glucose Level 98 Hematocrit 23.1 L Hemoglobin 7.7 L Indirect Bilirubin 0.7 Lymphocytes # 0.9 Lymphocytes % 10.5 L Magnesium Level 1.9 Mean Corpuscular Hemoglobin 29.0 Mean Corpuscular Hemoglobin Concent 33.2 Mean Corpuscular Volume 87.1 Mean Platelet Volume 7.1 L Monocytes # 0.4 Monocytes % 4.7 Neutrophils # 7.1 Neutrophils % 83.8 H Nucleated Red Blood Cells # 0.0 Nucleated Red Blood Cells % 0.0 Platelet Count 128 #L Potassium Level 4.2 Red Blood Count 2.65 L Red Cell Distribution Width 15.8 H Sodium Level 138 Total Bilirubin 0.7 Total Protein 5.7 #L White Blood Count 8.5 # Activated Partial Thromboplast Time 31.0 INR International Normalized Ratio 1.05 Prothrombin Time 13.7 Prothrombin Time Ratio 1.1 Test 02/14/16 20:29 02/15/16 02:05 02/15/16 04:55 02/15/16 06:49 Bedside Glucose 116 123 121 Anion Gap 14 Basophils # 0.0 Basophils % 0.0 Blood Morphology Comment Blood Urea Nitrogen 12 Calcium Level 8.6 Carbon Dioxide Level 24 Chloride Level 104 Creatinine 0.55 Eosinophils # 0.0 Eosinophils % 0.4 Glucose Level 115 Hematocrit 30.3 #L Hemoglobin 10.4 #L Lactate Dehydrogenase 1293 H Lymphocytes # 0.8 Lymphocytes % 6.8 L Magnesium Level 1.7 Mean Corpuscular Hemoglobin 30.1 Mean Corpuscular Hemoglobin Concent 34.3 Mean Corpuscular Volume 88.0 Mean Platelet Volume 6.9 L Monocytes # 0.9 Monocytes % 7.7 Neutrophils # 10.0 H Neutrophils % 85.1 H Nucleated Red Blood Cells # 0.0 Nucleated Red Blood Cells % 0.0 Phosphorus Level 2.7 Platelet Count 114 L Potassium Level 3.4 L Red Blood Count 3.45 #L Red Cell Distribution Width 16.8 H Sodium Level 139 White Blood Count 11.7 #H Test 02/15/16 07:27 Bedside Glucose 127 Medications Medications Current Medications Folic Acid (Folic Acid) 5 mg DAILY PO Last administered on 02/15/16 08:53; Admin Dose 5 MG; Start 02/14/16 at 09:00 Meclizine HCl (Antivert) 25 mg Q8H PRN PO DIZZINESS; Start 02/13/16 at 17:00 Morphine Sulfate (Ms Contin (Er)) 15 mg Q12 PO Last administered on 02/15/16 08 :54; Admin Dose 15 MG; Start 02/13/16 at 21:00 Oxycodone HCl (Roxicodone) 10 mg Q4H PRN PO PAIN; Start 02/13/16 at 17:00 Sunitinib (Sutent) 50 mg DAILY PO ; Start 02/14/16 at 09:00; Status UNV Trazodone HCl (Desyrel) 25 mg QHS PRN PO INSOMNIA; Start 02/13/16 at 17:00 Lactobacillus Acidoph/ Bulgaricus 1 tab 1 tab DAILY PO Last administered on 02/14 08:53; Admin Dose 1 TAB; Start 02/14/16 at 09:00 Sodium Chloride (NS) 1,000 ml @ 100 mls/hr Q10H IV Last administered on 04:30; Admin Dose 100 MLS/HR; Start 02/13/16 at 21:00 Ondansetron HCl (Zofran Inj) 4 mg Q6H PRN IV NAUSEA AND/OR VOMITING Last administered on 02/14/16 01:44; Admin Dose 4 MG; Start 02/13/16 at 17:00 Acetaminophen (Tylenol Tab) 650 mg Q6H PRN PO PAIN LEVEL 1-3 OR FEVER Last administered on 02/15/16 02:29; Admin Dose 650 MG; Start 02/13/16 at 17:00 Morphine Sulfate (morphine) 2 mg Q4H PRN IV PAIN LEVEL 7-10; Start 02/13/16 at 17:00 Docusate Sodium (Colace) 100 mg Q12H PRN PO CONSTIPATION; Start 02/13/16 at 17: 00 Magnesium Hydroxide (Milk Of Mag) 30 ml DAILY PRN PO CONSTIPATION; Start at 17:00 Bisacodyl (Dulcolax Supp) 10 mg DAILY PRN [place] CONSTIPATION; Start 02/13/16 at 17: 00 Insulin Aspart (Novolog Insulin Pen) NOVOLOG *MILD* ALGORI... Q4 SC Last administered on 02/14/16 01:19; Admin Dose 2 UNIT; Start 02/13/16 at 21:00 Miscellaneous Information 1 ea NOTE XX ; Start 02/13/16 at 17:30 Glucose (Glutose) 15 gm Q15M PRN PO DECREASED GLUCOSE; Start 02/13/16 at 17:30 Glucose (Glutose) 22.5 gm Q15M PRN PO DECREASED GLUCOSE; Start 02/13/16 at 17:30 Dextrose (D50w Syringe) 25 ml Q15M PRN IV DECREASED GLUCOSE; Start 02/13/16 at 17:30 Dextrose (D50w Syringe) 50 ml Q15M PRN IV DECREASED GLUCOSE; Start 02/13/16 at 17:30 Glucagon (Glucagen) 1 mg Q15M PRN IM DECREASED GLUCOSE; Start 02/13/16 at 17:30 Glucose (Glutose) 15 gm Q15M PRN BUCCAL DECREASED GLUCOSE; Start 02/13/16 at 17: 30 Miscellaneous Information MEDICATION REQUIRES CLARIFICATI... Q8H XX ; Start 02/13/16 at 17:30 Pantoprazole/ Sodium Chloride (Protonix Iv/NS) 100 ml @ 10 mls/hr Q10H IV Last administered on 02/15/16 04:30; Admin Dose 10 MLS/HR; Start 02/13/16 at 19: 00 ROBERTO HORTA Feb 15, 2016 11:46
[2016-02-15 11:54] LABS: HAAIG REFLEX REFLEX FILED
--- NOTE | 2016-02-15 12:45 | GILP ---
DATE OF PROCEDURE: PROCEDURE: Esophagogastroduodenoscopy with biopsies. BRIEF HISTORY AND INDICATIONS: The patient is being evaluated for evidence of gastrointestinal blee ding. PREMEDICATION: Monitored anesthesia care by anesthesiologist. SURGEON: Magan Lee MD. INSTRUMENT USED: Olympus endoscope. TECHNIQUE: After informed consent, with the patient/relatives understanding the procedure, its indic ations, potential risks and complications, including but not limited to: allergic reaction, bleeding , perforation or infection, and after all pertinent questions were answered to the patients satisfac tion, the patient/relatives signed witnessed informed consent. Following this, premedication was administered slowly IV push under careful cardiovascular and respi ratory monitoring with pulse oximetry, automatic blood pressure and fisher diving. Once the sedative effect was achieved the patient was place in the left lateral decubitus, the panen doscope was introduced and advanced under visual control. Careful examination of the upper gastrointestinal tract, both on insertion as well as withdrawal of the instrument disclosed the following findings: ESOPHAGUS: The distal esophagus shows moderate erythema and edema of the mucosa at the EG junction. STOMACH: Upon entrance to the stomach, air was insufflated, the gastric valera distended normally. The mucosa of the fundus, body and antrum of the stomach was carefully examined. Biopsies were obta ined to rule out H. pylori infection. PYLORUS: The pylorus appears patent and within normal limits, with no evidence of gastric outlet ob struction. DUODENUM: The duodenal mucosa was carefully examined in the duodenal bulb as well as the second por tion of the duodenum and appears unremarkable with no evidence of duodenitis, ulcer or neoplasm. The instrument was then withdrawn, the patient tolerated the procedure well and was transfer out of the endoscopy suite awake, and in good condition to continue recovery under observation IMPRESSION: 1. Distal esophagitis. 2. Gastritis, rule out H. pylori infection, biopsies obtained. PLAN: The patient will be treated with PPIs. Further recommendation will depend on review of biops ies and patient's clinical course. Dictated By: MAGAN LEE MS/JEANE Conf#: [id number] DID#: [id number]
[2016-02-15 13:11] LABS: HEPATITIS B CORE ANTIBODY NEGATIVE (NEGATIVE)
--- NOTE | 2016-02-15 17:45 | GILP ---
DATE OF PROCEDURE: 02/14/2016 PROCEDURE: Colonoscopy to distal transverse colon. BRIEF HISTORY AND INDICATIONS: The patient with history of hematochezia. She also has history of m etastatic spindle cell carcinoma. PREMEDICATION: Monitored anesthesia care by anesthesiologist. SURGEON: Scooter Lee MD INSTRUMENT USED: Olympus colonoscope. PREPARATION: Extremely poor. TECHNIQUE: After informed consent, with the patient understanding the procedure, its potential risk s and complications, including but not limited to: allergic reaction, bleeding, perforation, infecti on, missed lesions and after all pertinent questions were answered to the patient's satisfaction, th e patient signed the witnessed informed consent. Following this, premedication was administered slowly IV push by under careful cardiovascular and respiratory monitoring with pulse oximetry, automatic blood pressure and EKG ailyn tor. Once the sedative effect was achieved, the patient was placed in the left lateral decubitus pos ition, digital rectal examination was performed. Moderate size external hemorrhoids were present. At this point, the colonoscope was introduced and unfortunately, large amounts of solid stool and se misolid stool were encountered. Extensive lavage was applied. No evidence of bleeding or potential bleeding lesions were present in the left side of the colon which was suboptimally examined. As we reached the transverse colon, the preparation was even worse forcing us to abandon further att empts at examining the right side of the colon. The instrument was withdrawn. On withdrawal of the instrument, moderate sized internal hemorrhoids are present. The instrument was then withdrawn, the patient tolerated the procedure well and was transferred out of the Endoscopy Suite awake and in good condition to continue recovery under observation. IMPRESSION: 1. Poorly prepared colon, precludes examination of the right side of the colon. 2. The left side of the colon shows no bleeding lesions with the exception of internal hemorrhoids. PLAN: The patient will be observed. If further bleeding occurs, repeat colonoscopy will be require d. Dictated By: SCOOTER LEE MS/JEANE Conf#: [id number] DID#: [id number]
--- NOTE | 2016-02-15 18:20 | PN ---
Date/Time of Note Date/Time of Note DATE: 02/15/16 TIME: 18:16 Assessment/Plan VTE Prophylaxis VTE Prophylaxis Intervention: SCD's Lines/Catheters IV Catheter Type (from [facility]): Peripheral IV Urinary Cath still in place: No Assessment/Plan Assessment/Plan [facility] 1. 61-year-old woman admitted two days ago for acute significant rectal bleeding with a drop in hemoglobin, symptomatic anemia. She is s/p 4 units pRBC and 2 units FFP, repeat Hct 30%. she is going to get 2 more units of pRBC. Colonoscopy suffered from a poor prep. 2. 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 * FULL CODE. * Plan to commence oral chemotherapeutic agent (sunitinib); awaiting direction on this from Dr. Bejarano and colleagues. 3. Hypertension * Restart atenolol 4. Diabetes mellitus, with decreased appetite. 5. Lethargic, generalized weakness. Anemia, underlying malignancy. 6. Urinary tract infection diagnosed at [facility]. * Continue Levaquin. 7. Coagulopathy, most likely related to metastatic disease. * FFP for any acute bleeding, vitamin K x1 and monitor INR. 8. Prophylaxis. Protonix for gastrointestinal prophylaxis. SCDs to lower extremity for deep vein thrombosis prophylaxis. 9. DISPOSITION: Placed under telemetry observation. Oncology consult soon. Appreciate GI recommendations. Caro Moreno MD PhD [phone] Exam/Review of Systems Vital Signs Vitals Vital Signs Date Time Temp Pulse Resp B/P Pulse Ox O2 Delivery O2 Flow Rate FiO2 02/15/16 16:07 106 02/15/16 15:21 98.4 18 130/69 95 02/15/16 04:00 Room Air 02/14/16 17:44 10.0 Intake and Output 02/14/16 02/14/16 02/15/16 15:00 23:00 07:00 Intake Total 2200 ml Balance 2200 ml Exam Constitutional: alert, obese, oriented, other (lethargic ) Respiratory: clear to auscultation, normal air movement Cardiovascular: nl pulses, regular rate and rhythm Gastrointestinal: non-tender, soft Musculoskeletal: nl extremities to inspection Extremities: normal pulses, other (no edema, clubbing or cyanosis ) 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, nl mental status, nl speech, nl strength Results Result Diagram: 02/15/16 0649 02/15/16 0649 Results 24 hrs Laboratory Tests Test 02/14/16 20:29 02/15/16 02:05 02/15/16 04:55 02/15/16 06:49 Bedside Glucose 116 123 121 Anion Gap 14 Basophils # 0.0 Basophils % 0.0 Blood Morphology Comment Blood Urea Nitrogen 12 Calcium Level 8.6 Carbon Dioxide Level 24 Chloride Level 104 Creatinine 0.55 Eosinophils # 0.0 Eosinophils % 0.4 Glucose Level 115 Hematocrit 30.3 #L Hemoglobin 10.4 #L Hepatitis B Core Total Antibody NEGATIVE Hepatitis B Surface Antigen NEGATIVE Hepatitis C Antibody NEGATIVE Lactate Dehydrogenase 1293 H Lymphocytes # 0.8 Lymphocytes % 6.8 L Magnesium Level 1.7 Mean Corpuscular Hemoglobin 30.1 Mean Corpuscular Hemoglobin Concent 34.3 Mean Corpuscular Volume 88.0 Mean Platelet Volume 6.9 L Monocytes # 0.9 Monocytes % 7.7 Neutrophils # 10.0 H Neutrophils % 85.1 H Nucleated Red Blood Cells # 0.0 Nucleated Red Blood Cells % 0.0 Phosphorus Level 2.7 Platelet Count 114 L Potassium Level 3.4 L Red Blood Count 3.45 #L Red Cell Distribution Width 16.8 H Sodium Level 139 White Blood Count 11.7 #H Test 02/15/16 07:27 02/15/16 12:15 02/15/16 12:30 02/15/16 16:55 Bedside Glucose 127 198 218 Stool Occult Blood POSITIVE Medications Medications Current Medications Folic Acid (Folic Acid) 5 mg DAILY PO Last administered on 02/15/16 08:53; Admin Dose 5 MG; Start 02/14/16 at 09:00 Meclizine HCl (Antivert) 25 mg Q8H PRN PO DIZZINESS; Start 02/13/16 at 17:00 Morphine Sulfate (Ms Contin (Er)) 15 mg Q12 PO Last administered on 02/15/16 08 :54; Admin Dose 15 MG; Start 02/13/16 at 21:00 Oxycodone HCl (Roxicodone) 10 mg Q4H PRN PO PAIN; Start 02/13/16 at 17:00 Sunitinib (Sutent) 50 mg DAILY PO ; Start 02/14/16 at 09:00; Status UNV Trazodone HCl (Desyrel) 25 mg QHS PRN PO INSOMNIA; Start 02/13/16 at 17:00 Lactobacillus Acidoph/ Bulgaricus 1 tab 1 tab DAILY PO Last administered on 02/14 08:53; Admin Dose 1 TAB; Start 02/14/16 at 09:00 Sodium Chloride (NS) 1,000 ml @ 100 mls/hr Q10H IV Last administered on 04:30; Admin Dose 100 MLS/HR; Start 02/13/16 at 21:00 Ondansetron HCl (Zofran Inj) 4 mg Q6H PRN IV NAUSEA AND/OR VOMITING Last administered on 02/14/16 01:44; Admin Dose 4 MG; Start 02/13/16 at 17:00 Acetaminophen (Tylenol Tab) 650 mg Q6H PRN PO PAIN LEVEL 1-3 OR FEVER Last administered on 02/15/16 02:29; Admin Dose 650 MG; Start 02/13/16 at 17:00 Morphine Sulfate (morphine) 2 mg Q4H PRN IV PAIN LEVEL 7-10; Start 02/13/16 at 17:00 Docusate Sodium (Colace) 100 mg Q12H PRN PO CONSTIPATION; Start 02/13/16 at 17: 00 Magnesium Hydroxide (Milk Of Mag) 30 ml DAILY PRN PO CONSTIPATION; Start at 17:00 Bisacodyl (Dulcolax Supp) 10 mg DAILY PRN RI CONSTIPATION; Start 02/13/16 at 17: 00 Insulin Aspart (Novolog Insulin Pen) NOVOLOG *MILD* ALGORI... Q4 SC Last administered on 02/15/16 17:06; Admin Dose 2 UNIT; Start 02/13/16 at 21:00 Miscellaneous Information 1 ea NOTE XX ; Start 02/13/16 at 17:30 Glucose (Glutose) 15 gm Q15M PRN PO DECREASED GLUCOSE; Start 02/13/16 at 17:30 Glucose (Glutose) 22.5 gm Q15M PRN PO DECREASED GLUCOSE; Start 02/13/16 at 17:30 Dextrose (D50w Syringe) 25 ml Q15M PRN IV DECREASED GLUCOSE; Start 02/13/16 at 17:30 Dextrose (D50w Syringe) 50 ml Q15M PRN IV DECREASED GLUCOSE; Start 02/13/16 at 17:30 Glucagon (Glucagen) 1 mg Q15M PRN IM DECREASED GLUCOSE; Start 02/13/16 at 17:30 Glucose (Glutose) 15 gm Q15M PRN BUCCAL DECREASED GLUCOSE; Start 02/13/16 at 17: 30 Miscellaneous Information MEDICATION REQUIRES CLARIFICATI... Q8H XX ; Start 02/13/16 at 17:30 Pantoprazole/ Sodium Chloride (Protonix Iv/NS) 100 ml @ 10 mls/hr Q10H IV Last administered on 02/15/16 04:30; Admin Dose 10 MLS/HR; Start 02/13/16 at 19: 00 MIKE MORENO M.D. Feb 15, 2016 18:20 MIKE MORENO M.D. Feb 15, 2016 18:20
[2016-02-15] MEDS: ONDANSETRON 4 MG INJ IV PRN (19:40)
[2016-02-16] VITALS (12 sets, daily range): BP systolic 133–158; BP diastolic 64–76; PULSE 95–117; RESP 18–20
[2016-02-16] MEDS: INSULIN ASPART [NOVOLOG] 3 ML PEN SC SCH ×6 (01:00→20:31)
[2016-02-16] MEDS: [UNRECOGNIZED DRUG - REMARK] XX SCH ×3 (01:30→17:28)
[2016-02-16] MEDS: SOD CHLORIDE 0.9% 1,000 ML IV SCH ×3 (01:36→21:31)
[2016-02-16] MEDS: ONDANSETRON 4 MG INJ IV PRN ×3 (04:40→23:22)
[2016-02-16] MEDS: PANTOPRAZOLE IV 80 MG in SOD CHLORIDE 0.9% 100 ML IV SCH ×2 (06:00→17:13)
--- NOTE | 2016-02-16 07:58 | CONS ---
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 Mucinous tubular and spindle cell renal cell carcinoma is a rare, recently described variant of renal cell carcinoma ranging from low to high grade that includes sarcomatoid differentiation. "For metastatic diseases, there are no reports of systemic treatment guideline published to date. Most recently one case of metastatic MTSRCC showing a response to sunitinib has been documented" ( Alton M, Kurt XL, Duncan LuqueD. Mucinous tubular and spindle cell renal cell carcinoma : a review of clinicopathologic aspects. Diagn Pathol. 2015 Oct 17;10:168. doi: 10.1186/[id number]). - Will need to obtain path report from [facility] to confirm histologic diagnosis and grade, etc. - Hold sunitinib for now given concern for GIB; bleeding events have been reported in 26% of patients receiving sunitinib for mRCC, including rectal, upper gastrointestinal bleeding though less commonly (Crista C, Sha D, Pratik R, Wade A, Cristobal R, Angelo G. Sunitinib therapy for metastatic renal cell carcinoma: recommendations for management of side effects. [employer] Journal. 2007;1(2 Suppl):S41-S54). - Will follow clinical course to determine contribution to weakness of bleeding , UTI, and metastatic cancer. - Patient to follow up with Dr. Bejarano as an outpatient. Will continue to follow. Patient's daughter called per request but did not answer, message left for daughter with update. Problems: Consultation Date/Type/Reason Admit Date/Time Feb 13, 2016 at 16:04 Date of Consultation: Feb 16, 2016 Type of Consultation: Hematology/Oncology Hx of Present Illness The patient is a 61 year-old female with diabetes, hypertension and left flank pain and had CT scans that showed bilateral renal masses with lung and bone metastasis at [facility]. She apparently had a biopsy of the left renal mass at that hospital but was never given the diagnosis and meanwhile changed her insurance. She was having increasing pain and poor appetite and nausea and vomiting with occasional diarrhea and was admitted to [facility] for weakness. [facility] was contacted by [facility] and found that biopsy showed spindle cell renal cancer with metastases to the bones and lungs. She was discharged from [facility] on 02/11/2016 on levaquin for a UTI, and also has been on Lovenox for DVT prophylaxis. She was started on sutent as an outpatient but reportedly only took 1 pill on the day prior to admission. She states that she has had progressive weakness over the last month and especially over the last week when she has been bedbound except turning in bed. She has been at the [facility] and since 02/11/2016. Prior to admission, she was noted to have a large amount of blood through the rectum with clots. She was noted to be pale; therefore, transferred via 911 from [facility] to [facility]. She had gross acute rectal bleeding with clots in large amount in her diaper. Her labs drawn upon arrival reported a hemoglobin of 8.9, which has already dropped from 2 days ago. She received 4 units pRBC and 2 units FFP, repeat Hct 30%. Colonoscopy suffered from a poor prep but the left side of the colon shows no bleeding lesions with the exception of internal hemorrhoids. EGD showed distal esophagitis and gastritis but no active source of bleeding. She has not had rectal bleeding since yesterday by report. Abdominal US demonstrated markedly abnormal left kidney with a large heterogeneous 9.5 cm mass arising from its mid pole as well as a similar 5.1 cm mass projecting off its lower pole and a 5 cm mass immediately below its lower pole. CT A/P demonstrated large heterogeneously enhancing mass of the left kidney with invasion of the left renal vein with extension of tumor beyond the perirenal fascia and into the lateral conal fascia and into the paracolic gutter , retroperitoneal lymphadenopathy, suspicion for adrenal metastasis, skeletal metastases, and pulmonary metastases. Psychological: nl mood/affect, no complaints Past Medical History 1. A recent diagnosis of metastatic spindle cell renal carcinoma with involvement of the lung, the bones and retroperitoneal lymphadenopathy on CAT scan. 2. Hypertension. 3. Diabetes mellitus. 4. Generalized weakness that has been ongoing. Family History Significant Family History: cancer (mother with ?uterine cancer) Social History The patient lives with family. She denies any history of smoking. She very rarely drinks, maybe once every 3 years, occasionally. Smoking Status: Never smoker Exam/Review of Systems Vital Signs Vitals Vital Signs Date Time Temp Pulse Resp B/P Pulse Ox O2 Delivery O2 Flow Rate FiO2 02/16/16 04:04 100 02/16/16 03:10 98.1 18 144/64 95 02/16/16 00:00 Room Air 02/14/16 17:44 10.0 Intake and Output 02/15/16 02/15/16 02/16/16 15:00 23:00 07:00 Intake Total 520 ml 1600 ml Balance 520 ml 1600 ml Exam Constitutional: alert, oriented Psych: no complaints Head: normocephalic Eyes: nl conjunctiva Neck: non-tender, supple Respiratory: clear to auscultation Cardiovascular: regular rate and rhythm Gastrointestinal: non-tender, soft Musculoskeletal: swelling Results Result Diagram: 02/15/16 0649 02/15/16 0649 Results 24 hrs Laboratory Tests Test 02/15/16 12:15 02/15/16 12:30 02/15/16 16:55 02/15/16 21:47 Bedside Glucose 198 218 145 Stool Occult Blood POSITIVE Test 02/16/16 01:30 02/16/16 05:13 02/16/16 07:26 Bedside Glucose 138 136 126 Medications Medications Current Medications Folic Acid (Folic Acid) 5 mg DAILY PO Last administered on 02/15/16 08:53; Admin Dose 5 MG; Start 02/14/16 at 09:00 Meclizine HCl (Antivert) 25 mg Q8H PRN PO DIZZINESS; Start 02/13/16 at 17:00 Morphine Sulfate (Ms Contin (Er)) 15 mg Q12 PO Last administered on 02/15/16 22 :01; Admin Dose 15 MG; Start 02/13/16 at 21:00 Oxycodone HCl (Roxicodone) 10 mg Q4H PRN PO PAIN; Start 02/13/16 at 17:00 Sunitinib (Sutent) 50 mg DAILY PO ; Start 02/14/16 at 09:00; Status UNV Trazodone HCl (Desyrel) 25 mg QHS PRN PO INSOMNIA; Start 02/13/16 at 17:00 Lactobacillus Acidoph/ Bulgaricus 1 tab 1 tab DAILY PO Last administered on 02/14 08:53; Admin Dose 1 TAB; Start 02/14/16 at 09:00 Sodium Chloride (NS) 1,000 ml @ 100 mls/hr Q10H IV Last administered on 01:36; Admin Dose 100 MLS/HR; Start 02/13/16 at 21:00 Ondansetron HCl (Zofran Inj) 4 mg Q6H PRN IV NAUSEA AND/OR VOMITING Last administered on 02/16/16 04:40; Admin Dose 4 MG; Start 02/13/16 at 17:00 Acetaminophen (Tylenol Tab) 650 mg Q6H PRN PO PAIN LEVEL 1-3 OR FEVER Last administered on 02/15/16 02:29; Admin Dose 650 MG; Start 02/13/16 at 17:00 Morphine Sulfate (morphine) 2 mg Q4H PRN IV PAIN LEVEL 7-10; Start 02/13/16 at 17:00 Docusate Sodium (Colace) 100 mg Q12H PRN PO CONSTIPATION; Start 02/13/16 at 17: 00 Magnesium Hydroxide (Milk Of Mag) 30 ml DAILY PRN PO CONSTIPATION; Start at 17:00 Bisacodyl (Dulcolax Supp) 10 mg DAILY PRN [place] CONSTIPATION; Start 02/13/16 at 17: 00 Insulin Aspart (Novolog Insulin Pen) NOVOLOG *MILD* ALGORI... Q4 SC Last administered on 02/15/16 22:02; Admin Dose 1 UNIT; Start 02/13/16 at 21:00 Miscellaneous Information 1 ea NOTE XX ; Start 02/13/16 at 17:30 Glucose (Glutose) 15 gm Q15M PRN PO DECREASED GLUCOSE; Start 02/13/16 at 17:30 Glucose (Glutose) 22.5 gm Q15M PRN PO DECREASED GLUCOSE; Start 02/13/16 at 17:30 Dextrose (D50w Syringe) 25 ml Q15M PRN IV DECREASED GLUCOSE; Start 02/13/16 at 17:30 Dextrose (D50w Syringe) 50 ml Q15M PRN IV DECREASED GLUCOSE; Start 02/13/16 at 17:30 Glucagon (Glucagen) 1 mg Q15M PRN IM DECREASED GLUCOSE; Start 02/13/16 at 17:30 Glucose (Glutose) 15 gm Q15M PRN BUCCAL DECREASED GLUCOSE; Start 02/13/16 at 17: 30 Miscellaneous Information MEDICATION REQUIRES CLARIFICATI... Q8H XX ; Start 02/13/16 at 17:30 Pantoprazole/ Sodium Chloride (Protonix Iv/NS) 100 ml @ 10 mls/hr Q10H IV Last administered on 02/16/16t 06:00; Admin Dose 10 MLS/HR; Start 02/13/16 at 19: 00 TOROSENDA MD Feb 16, 2016 07:57
[2016-02-16] MEDS: LACTOBACILLUS CHEW TAB PO SCH (08:03)
[2016-02-16] MEDS: morphine (ER) 15 MG TAB PO SCH ×2 (08:04→20:29)
[2016-02-16] MEDS: FOLIC ACID 1 MG TAB PO SCH (08:04)
[2016-02-16 09:53] LABS: HEMATOCRIT 28.6 % (37.0-47.0); HEMOGLOBIN 9.7 g/dl (12.0-16.0)
[2016-02-16] MEDS: LACTULOSE 30ML CUP PO SCH ×6 (11:21→22:13)
--- NOTE | 2016-02-16 18:53 | PN ---
Date/Time of Note Date/Time of Note DATE: 02/16/16 TIME: 18:52 Assessment/Plan VTE Prophylaxis VTE Prophylaxis Intervention: SCD's Lines/Catheters IV [facility]from [facility] Urinary Cath still in place: No Assessment/Plan Assessment/Plan [facility] 1. 61-year-old woman admitted three days ago for acute significant rectal bleeding with a drop in hemoglobin, symptomatic anemia. She is s/p 4 units pRBC and 2 units FFP. Repeat Hct today is 28.6% after two additional units of PRBC. Previous attempt at colonoscopy foiled by a poor prep. * Repeat prep tonight for colonoscopy tomorrow. 2. 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 * Full Code. * Per Dr. Godoy, plan to start sunitinib put off until bleeding issue resolved. 3. Hypertension, stable on atenolol. Mildly tachycardic today. 4. Diabetes mellitus, with decreased appetite. Sugars good today, 126-170. * Sliding scale is currently her only insulin 5. Lethargic, generalized weakness due to anemia and underlying malignancy. 6. Urinary tract infection diagnosed at [facility]. * Continue Levaquin. 7. Coagulopathy, most likely related to metastatic disease. * FFP for any acute bleeding, vitamin K x1 and monitor INR. 8. Prophylaxis. Protonix for gastrointestinal prophylaxis. SCDs to lower extremity for deep vein thrombosis prophylaxis. 9. DISPOSITION: Placed under telemetry observation. Oncology consult soon. Appreciate GI recommendations. Caro Moreno MD PhD [phone] Subjective 24 Hr Interval Summary Free Text/Dictation Sleeping, alone in the room this evening. Exam/Review of Systems Vital Signs Vitals Vital Signs Date Time Temp Pulse Resp B/P Pulse Ox O2 Delivery O2 Flow Rate FiO2 02/16/16 16:20 106 02/16/16 16:15 98.3 20 136/70 94 02/16/16 00:00 Room Air 02/14/16 17:44 10.0 Intake and Output 02/15/16 02/15/16 02/16/16 15:00 23:00 07:00 Intake Total 520 ml 1600 ml Balance 520 ml 1600 ml Exam Constitutional: Heavy-set, very fatigued and pale-appearing Respiratory: clear to auscultation, normal air movement Cardiovascular: nl pulses, regular rate and rhythm Gastrointestinal: non-tender, soft Musculoskeletal: nl extremities to inspection Extremities: normal pulses, with no edema, clubbing or cyanosis 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: Sleeping at the moment, with symmetric facial features. Results Result Diagram: 02/16/16 0923 02/15/16 0649 Results 24 hrs Laboratory Tests Test 02/15/16 21:47 02/16/16 01:30 02/16/16 05:13 02/16/16 07:26 Bedside Glucose 145 138 136 126 Test 02/16/16 09:23 02/16/16 11:58 02/16/16 16:56 Hematocrit 28.6 L Hemoglobin 9.7 L Bedside Glucose 149 170 Medications Medications Current Medications Folic Acid (Folic Acid) 5 mg DAILY PO Last administered on 02/16/16 08:04; Admin Dose 5 MG; Start 02/14/16 at 09:00 Meclizine HCl (Antivert) 25 mg Q8H PRN PO DIZZINESS; Start 02/13/16 at 17:00 Morphine Sulfate (Ms Contin (Er)) 15 mg Q12 PO Last administered on 02/16/16 08 :04; Admin Dose 15 MG; Start 02/13/16 at 21:00 Oxycodone HCl (Roxicodone) 10 mg Q4H PRN PO PAIN; Start 02/13/16 at 17:00 Sunitinib (Sutent) 50 mg DAILY PO ; Start 02/14/16 at 09:00; Status UNV Trazodone HCl (Desyrel) 25 mg QHS PRN PO INSOMNIA; Start 02/13/16 at 17:00 Lactobacillus Acidoph/ Bulgaricus 1 tab 1 tab DAILY PO Last administered on 02/15 08:03; Admin Dose 1 TAB; Start 02/14/16 at 09:00 Sodium Chloride (NS) 1,000 ml @ 100 mls/hr Q10H IV Last administered on 11:25; Admin Dose 100 MLS/HR; Start 02/13/16 at 21:00 Ondansetron HCl (Zofran Inj) 4 mg Q6H PRN IV NAUSEA AND/OR VOMITING Last administered on 02/16/16 13:18; Admin Dose 4 MG; Start 02/13/16 at 17:00 Acetaminophen (Tylenol Tab) 650 mg Q6H PRN PO PAIN LEVEL 1-3 OR FEVER Last administered on 02/15/16 02:29; Admin Dose 650 MG; Start 02/13/16 at 17:00 Morphine Sulfate (morphine) 2 mg Q4H PRN IV PAIN LEVEL 7-10; Start 02/13/16 at 17:00 Docusate Sodium (Colace) 100 mg Q12H PRN PO CONSTIPATION; Start 02/13/16 at 17: 00 Magnesium Hydroxide (Milk Of Mag) 30 ml DAILY PRN PO CONSTIPATION; Start at 17:00 Bisacodyl (Dulcolax Supp) 10 mg DAILY PRN [place] CONSTIPATION; Start 02/13/16 at 17: 00 Insulin Aspart (Novolog Insulin Pen) NOVOLOG *MILD* ALGORI... Q4 SC Last administered on 02/16/16 17:16; Admin Dose 1 UNIT; Start 02/13/16 at 21:00 Miscellaneous Information 1 ea NOTE XX ; Start 02/13/16 at 17:30 Glucose (Glutose) 15 gm Q15M PRN PO DECREASED GLUCOSE; Start 02/13/16 at 17:30 Glucose (Glutose) 22.5 gm Q15M PRN PO DECREASED GLUCOSE; Start 02/13/16 at 17:30 Dextrose (D50w Syringe) 25 ml Q15M PRN IV DECREASED GLUCOSE; Start 02/13/16 at 17:30 Dextrose (D50w Syringe) 50 ml Q15M PRN IV DECREASED GLUCOSE; Start 02/13/16 at 17:30 Glucagon (Glucagen) 1 mg Q15M PRN IM DECREASED GLUCOSE; Start 02/13/16 at 17:30 Glucose (Glutose) 15 gm Q15M PRN BUCCAL DECREASED GLUCOSE; Start 02/13/16 at 17: 30 Miscellaneous Information MEDICATION REQUIRES CLARIFICATI... Q8H XX ; Start 02/13/16 at 17:30 Pantoprazole/ Sodium Chloride (Protonix Iv/NS) 100 ml @ 10 mls/hr Q10H IV Last administered on 02/16/16 17:13; Admin Dose 10 MLS/HR; Start 02/13/16 at 19: 00 Lactulose (Enulose) 20 gm Q2 PO Last administered on 02/16/16 17:13; Admin Dose 20 GM; Start 02/16/16 at 11:00; Stop 1/8/17 at 23:59 Magnesium Citrate (Citroma) 300 ml ONCE ONCE PO ; Start 02/16/16 at 20:00; Stop 02/16/16 at 20:01 MIKE MORENO M.D. Feb 16, 2016 18:53
[2016-02-16] MEDS ORDERED: MAGNESIUM CITRATE 300 ML BTL PO ONE (20:00)
[2016-02-17] VITALS (23 sets, daily range): BP systolic 117–175; BP diastolic 61–89; PULSE 99–130; RESP 18–26
[2016-02-17] MEDS: LACTULOSE 30ML CUP PO SCH (00:48)
[2016-02-17] MEDS: INSULIN ASPART [NOVOLOG] 3 ML PEN SC SCH ×6 (01:02→20:44)
[2016-02-17] MEDS: [UNRECOGNIZED DRUG - REMARK] XX SCH (01:30)
[2016-02-17] MEDS: PANTOPRAZOLE IV 80 MG in SOD CHLORIDE 0.9% 100 ML IV SCH ×3 (03:15→23:00)
[2016-02-17] MEDS: SOD CHLORIDE 0.9% 1,000 ML IV SCH ×2 (04:10→06:28)
[2016-02-17] MEDS: morphine (ER) 15 MG TAB PO SCH ×2 (08:39→20:45)
[2016-02-17] MEDS: LACTOBACILLUS CHEW TAB PO SCH (08:39)
[2016-02-17] MEDS: FOLIC ACID 1 MG TAB PO SCH (08:40)
[2016-02-17 10:57] LABS: INR 1.16; PROTIME 14.8 Sec (12.2-14.2); PT RATIO 1.2
--- NOTE | 2016-02-17 14:14 | PN ---
Date/Time of Note Date/Time of Note DATE: 02/17/16 TIME: 13:55 Assessment/Plan VTE Prophylaxis VTE Prophylaxis Intervention: SCD's Lines/Catheters IV Catheter Type (from [facility]): [facility] Urinary Cath still in place: No Assessment/Plan Assessment/Plan 61-year-old, unfortunate female with: 1. Acute severe symptomatic anemia 2ry to lower GIB Repeat colonoscopy today S/p 4 units pRBC and 2 units FFP, Hb stable. 2. Metastatic spindle cell carcinoma, with metastasis to Lung, bones and large left renal and adrenal masses FULL CODE. Resume oral chemotherapeutic agent after GIB work up . Appreciate recommendations from Dr Godoy 3. Hypertension. Back on Atenolol and stable. 4. Diabetes mellitus: Sliding scale insulin. 5. Lethargic, generalized weakness. Most likely related to episode of acute bleeding and Anemia. Continue to monitor and transfuse pRBC prn. 6. Urinary tract infection diagnosed at [facility]. Continue Levaquin. 7. Coagulopathy, most likely related to metastatic disease. FFP prn acute bleeding. Monitor INR. Prophylaxis. Protonix for gastrointestinal prophylaxis. SCDs to lower extremity for deep vein thrombosis prophylaxis. DISPOSITION: Colonoscopy today and further care pending results. Check electrolytes stat Subjective 24 Hr Interval Summary Free Text/Dictation Patient lethargic and post prep for Colonoscopy today Hb stable as of yesterday No Labs today Exam/Review of Systems Vital Signs Vitals Vital Signs Date Time Temp Pulse Resp B/P Pulse Ox O2 Delivery O2 Flow Rate FiO2 02/17/16 12:16 100 02/17/16 12:00 147/76 02/17/16 11:49 98.5 20 97 02/16/16 00:00 Room Air 02/14/16 17:44 10.0 Intake and Output 02/16/16 02/16/16 02/17/16 15:00 23:00 07:00 Intake Total 480 ml 2060 ml Balance 480 ml 2060 ml Exam Constitutional: alert, frail, obese, oriented Respiratory: clear to auscultation, normal air movement Cardiovascular: nl pulses, regular rate and rhythm Gastrointestinal: non-tender, soft Musculoskeletal: nl extremities to inspection Extremities: normal pulses, other (no clubbing or cyanosis, no anasarca ) 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: TECHNOLOGIST DEVELOPMENT II-XII intact, lethargic, nl mental status, nl speech Results Result Diagram: 02/16/16 0923 02/15/16 0649 Results 24 hrs Laboratory Tests Test 02/16/16 16:56 02/16/16 20:26 02/17/16 00:52 02/17/16 05:14 Bedside Glucose 170 162 166 138 Test 02/17/16 08:38 02/17/16 10:28 02/17/16 12:51 Bedside Glucose 120 112 Activated Partial Thromboplast Time 31.0 INR International Normalized Ratio 1.16 Prothrombin Time 14.8 H Prothrombin Time Ratio 1.2 Medications Medications Current Medications Folic Acid (Folic Acid) 5 mg DAILY PO Last administered on 02/17/16 08:40; Admin Dose 5 MG; Start 02/14/16 at 09:00 Meclizine HCl (Antivert) 25 mg Q8H PRN PO DIZZINESS; Start 02/13/16 at 17:00 Morphine Sulfate (Ms Contin (Er)) 15 mg Q12 PO Last administered on 02/17/16 08 :39; Admin Dose 15 MG; Start 02/13/16 at 21:00 Oxycodone HCl (Roxicodone) 10 mg Q4H PRN PO PAIN; Start 02/13/16 at 17:00 Sunitinib (Sutent) 50 mg DAILY PO ; Start 02/14/16 at 09:00; Status UNV Trazodone HCl (Desyrel) 25 mg QHS PRN PO INSOMNIA; Start 02/13/16 at 17:00 Lactobacillus Acidoph/ Bulgaricus 1 tab 1 tab DAILY PO Last administered on 02/16 08:39; Admin Dose 1 TAB; Start 02/14/16 at 09:00 Sodium Chloride (NS) 1,000 ml @ 100 mls/hr Q10H IV Last administered on 06:28; Admin Dose 100 MLS/HR; Start 02/13/16 at 21:00 Ondansetron HCl (Zofran Inj) 4 mg Q6H PRN IV NAUSEA AND/OR VOMITING Last administered on 02/16/16 23:22; Admin Dose 4 MG; Start 02/13/16 at 17:00 Acetaminophen (Tylenol Tab) 650 mg Q6H PRN PO PAIN LEVEL 1-3 OR FEVER Last administered on 02/15/16 02:29; Admin Dose 650 MG; Start 02/13/16 at 17:00 Morphine Sulfate (morphine) 2 mg Q4H PRN IV PAIN LEVEL 7-10; Start 02/13/16 at 17:00 Docusate Sodium (Colace) 100 mg Q12H PRN PO CONSTIPATION; Start 02/13/16 at 17: 00 Magnesium Hydroxide (Milk Of Mag) 30 ml DAILY PRN PO CONSTIPATION; Start at 17:00 Bisacodyl (Dulcolax Supp) 10 mg DAILY PRN [place] CONSTIPATION; Start 02/13/16 at 17: 00 Insulin Aspart (Novolog Insulin Pen) NOVOLOG *MILD* ALGORI... Q4 SC Last administered on 02/17/16 01:02; Admin Dose 1 UNIT; Start 02/13/16 at 21:00 Miscellaneous Information 1 ea NOTE XX ; Start 02/13/16 at 17:30 Glucose (Glutose) 15 gm Q15M PRN PO DECREASED GLUCOSE; Start 02/13/16 at 17:30 Glucose (Glutose) 22.5 gm Q15M PRN PO DECREASED GLUCOSE; Start 02/13/16 at 17:30 Dextrose (D50w Syringe) 25 ml Q15M PRN IV DECREASED GLUCOSE; Start 02/13/16 at 17:30 Dextrose (D50w Syringe) 50 ml Q15M PRN IV DECREASED GLUCOSE; Start 02/13/16 at 17:30 Glucagon (Glucagen) 1 mg Q15M PRN IM DECREASED GLUCOSE; Start 02/13/16 at 17:30 Glucose (Glutose) 15 gm Q15M PRN BUCCAL DECREASED GLUCOSE; Start 02/13/16 at 17: 30 Miscellaneous Information MEDICATION REQUIRES CLARIFICATI... Q8H XX ; Start 02/13/16 at 17:30; Status Future Hold Pantoprazole/ Sodium Chloride (Protonix Iv/NS) 100 ml @ 10 mls/hr Q10H IV Last administered on 02/17/16 13:24; Admin Dose 10 MLS/HR; Start 02/13/16 at 19: 00 JOSE TORIBIO Feb 17, 2016 14:08
--- NOTE | 2016-02-17 14:46 | CONS ---
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 Mucinous tubular and spindle cell renal cell carcinoma is a rare, recently described variant of renal cell carcinoma ranging from low to high grade that includes sarcomatoid differentiation. "For metastatic diseases, there are no reports of systemic treatment guideline published to date. Most recently one case of metastatic MTSRCC showing a response to sunitinib has been documented" ( Alton M, Kurt XL, Duncan LuqueD. Mucinous tubular and spindle cell renal cell carcinoma : a review of clinicopathologic aspects. Diagn Pathol. 2015 Oct 17;10:168. doi: 10.1186/[id number]). - Will need to obtain path report from [facility] to confirm histologic diagnosis and grade, etc. - Hold sunitinib for now given concern for GIB; bleeding events have been reported in 26% of patients receiving sunitinib for mRCC, including rectal, upper gastrointestinal bleeding though less commonly (Crista C, Sha D, Pratik R, Wade A, Gasleela R, Angelo G. Sunitinib therapy for metastatic renal cell carcinoma: recommendations for management of side effects. [place] [employer] Journal. 2007;1(2 Suppl):S41-S54). -f/u colonoscopy today - Patient to follow up with Dr. Bejarano as an outpatient. -Will continue to follow Problems: Consultation Date/Type/Reason Admit Date/Time Feb 13, 2016 at 16:04 Initial Consult Date 02/16/16 Type of Consultation: Hematology/Oncology Reason for Consultation renal cell brianne Referring Provider: JOSE TORIBIO 24 HR Interval Summary Free Text/Dictation to go for colonoscopy today. does not appear to be actively GI bleeding. Exam/Review of Systems Vital Signs Vitals Vital Signs Date Time Temp Pulse Resp B/P Pulse Ox O2 Delivery O2 Flow Rate FiO2 02/17/16 12:16 100 02/17/16 12:00 147/76 02/17/16 11:49 98.5 20 97 02/16/16 00:00 Room Air 02/14/16 17:44 10.0 Intake and Output 102/16/16 02/17/16 15:00 23:00 07:00 Intake Total 480 ml 2060 ml Balance 480 ml 2060 ml Exam Constitutional: alert, oriented, other (weak) Psych: no complaints Head: atraumatic, normocephalic Eyes: nl conjunctiva ENMT: nl external ears & nose Neck: non-tender, supple Respiratory: clear to auscultation, normal air movement Cardiovascular: nl pulses, regular rate and rhythm Gastrointestinal: soft Musculoskeletal: nl extremities to inspection, nl gait and stance Results Result Diagram: 02/16/16 0923 02/15/16 0649 Results 24 hrs Laboratory Tests Test 02/16/16 16:56 02/16/16 20:26 02/17/16 00:52 02/17/16 05:14 Bedside Glucose 170 162 166 138 Test 02/17/16 08:38 02/17/16 10:28 02/17/16 12:51 Bedside Glucose 120 112 Activated Partial Thromboplast Time 31.0 INR International Normalized Ratio 1.16 Prothrombin Time 14.8 H Prothrombin Time Ratio 1.2 Medications Medications Current Medications Folic Acid (Folic Acid) 5 mg DAILY PO Last administered on 02/17/16 08:40; Admin Dose 5 MG; Start 02/14/16 at 09:00 Meclizine HCl (Antivert) 25 mg Q8H PRN PO DIZZINESS; Start 02/13/16 at 17:00 Morphine Sulfate (Ms Contin (Er)) 15 mg Q12 PO Last administered on 02/17/16 08 :39; Admin Dose 15 MG; Start 02/13/16 at 21:00 Oxycodone HCl (Roxicodone) 10 mg Q4H PRN PO PAIN; Start 02/13/16 at 17:00 Sunitinib (Sutent) 50 mg DAILY PO ; Start 02/14/16 at 09:00; Status UNV Trazodone HCl (Desyrel) 25 mg QHS PRN PO INSOMNIA; Start 02/13/16 at 17:00 Lactobacillus Acidoph/ Bulgaricus 1 tab 1 tab DAILY PO Last administered on 02/16 08:39; Admin Dose 1 TAB; Start 02/14/16 at 09:00 Sodium Chloride (NS) 1,000 ml @ 100 mls/hr Q10H IV Last administered on 06:28; Admin Dose 100 MLS/HR; Start 02/13/16 at 21:00 Ondansetron HCl (Zofran Inj) 4 mg Q6H PRN IV NAUSEA AND/OR VOMITING Last administered on 02/16/16 23:22; Admin Dose 4 MG; Start 02/13/16 at 17:00 Acetaminophen (Tylenol Tab) 650 mg Q6H PRN PO PAIN LEVEL 1-3 OR FEVER Last administered on 02/15/16 02:29; Admin Dose 650 MG; Start 02/13/16 at 17:00 Morphine Sulfate (morphine) 2 mg Q4H PRN IV PAIN LEVEL 7-10; Start 02/13/16 at 17:00 Docusate Sodium (Colace) 100 mg Q12H PRN PO CONSTIPATION; Start 02/13/16 at 17: 00 Magnesium Hydroxide (Milk Of Mag) 30 ml DAILY PRN PO CONSTIPATION; Start at 17:00 Bisacodyl (Dulcolax Supp) 10 mg DAILY PRN [place] CONSTIPATION; Start 02/13/16 at 17: 00 Insulin Aspart (Novolog Insulin Pen) NOVOLOG *MILD* ALGORI... Q4 SC Last administered on 02/17/16 01:02; Admin Dose 1 UNIT; Start 02/13/16 at 21:00 Miscellaneous Information 1 ea NOTE XX ; Start 02/13/16 at 17:30 Glucose (Glutose) 15 gm Q15M PRN PO DECREASED GLUCOSE; Start 02/13/16 at 17:30 Glucose (Glutose) 22.5 gm Q15M PRN PO DECREASED GLUCOSE; Start 02/13/16 at 17:30 Dextrose (D50w Syringe) 25 ml Q15M PRN IV DECREASED GLUCOSE; Start 02/13/16 at 17:30 Dextrose (D50w Syringe) 50 ml Q15M PRN IV DECREASED GLUCOSE; Start 02/13/16 at 17:30 Glucagon (Glucagen) 1 mg Q15M PRN IM DECREASED GLUCOSE; Start 02/13/16 at 17:30 Glucose (Glutose) 15 gm Q15M PRN BUCCAL DECREASED GLUCOSE; Start 02/13/16 at 17: 30 Miscellaneous Information MEDICATION REQUIRES CLARIFICATI... Q8H XX ; Start 02/13/16 at 17:30; Status Future Hold Pantoprazole/ Sodium Chloride (Protonix Iv/NS) 100 ml @ 10 mls/hr Q10H IV Last administered on 02/17/16t 13:24; Admin Dose 10 MLS/HR; Start 02/13/16 at 19: 00 YAMILKA DELGADO M.D. Feb 17, 2016 14:46
[2016-02-17 15:08] LABS: CREATININE 0.53 mg/dl (0.44-1.00)
[2016-02-17 15:09] LABS: CALCIUM 8.2 mg/dl (8.4-10.2)
[2016-02-17 15:11] LABS: POTASSIUM 2.7 mmol/L (3.5-5.1)
[2016-02-17] MEDS: ONDANSETRON 4 MG INJ IV PRN (15:55)
[2016-02-17] MEDS: hydrALAzine 20 MG INJ IV PRN (15:57)
[2016-02-17] MEDS ORDERED: POTASSIUM CHLORIDE 250 ML IVPB ONE (16:00)
[2016-02-17] MEDS: POTASSIUM CHLORIDE 40 MEQ in SOD CHLORIDE 0.9% 1,000 ML IV SCH (17:13)
[2016-02-17] MEDS ORDERED: PROPOFOL 20 ML ONE (18:59)
[2016-02-17] MEDS ORDERED: FENTAnyl 50 MCG/ML VIAL IV PRN (19:30)
[2016-02-17] MEDS ORDERED: METOCLOPRAMIDE 10 MG INJ IV PRN (19:30)
[2016-02-17] MEDS ORDERED: ONDANSETRON 4 MG INJ IV PRN (19:30)
[2016-02-17] MEDS ORDERED: DIPHENHYDRAMINE 50 MG INJ IV PRN (19:30)
[2016-02-17] MEDS ORDERED: MIDAZOLAM 1 MG/ML 2 ML INJ IV PRN (19:30)
[2016-02-17] MEDS ORDERED: MEPERIDINE 25 MG INJ IV PRN (19:30)
[2016-02-17] MEDS: MESALAMINE 4 GM/60 ML ENEMA PR SCH (22:00)
[2016-02-18] VITALS (11 sets, daily range): BP systolic 124–173; BP diastolic 64–84; PULSE 90–120; RESP 16–20
[2016-02-18] MEDS: ACCUCHECK XX SCH (01:39)
[2016-02-18] MEDS: POTASSIUM CHLORIDE 40 MEQ in SOD CHLORIDE 0.9% 1,000 ML IV SCH ×4 (03:12→23:36)
[2016-02-18] MEDS: PANTOPRAZOLE IV 80 MG in SOD CHLORIDE 0.9% 100 ML IV SCH ×5 (05:09→23:18)
[2016-02-18 07:00] LABS: BASOPHILS % 0.1 % (0.0-2.0); EOSINOPHILS # 0.1 10^3/ul (0.0-0.5); EOSINOPHILS % 0.8 % (0.0-7.0); HEMATOCRIT 26.4 % (37.0-47.0); LYMPHOCYTES # 0.9 10^3/ul (0.8-2.9); LYMPHOCYTES % 11.5 % (15.0-51.0); MEAN CORPUSCULAR HEMOGLOBIN 29.9 pg (29.0-33.0); MEAN CORPUSCULAR VOLUME 87.7 fl (82.0-101.0); MEAN PLATELET VOLUME 6.5 fl (7.4-10.4); MONOCYTE # 0.5 10^3/ul (0.3-0.9); NEUTROPHIL # 6.6 10^3/ul (1.6-7.5); NEUTROPHILS % 81.6 % (39.0-77.0); PLATELET COUNT 141 10^3/UL (140-440); RED BLOOD COUNT 3.01 10^6/ul (4.20-5.40); RED CELL DISTRIBUTION WIDTH 16.1 % (11.5-14.5); UNCORRECTED WBC 8.1 10^3/ul (4.8-10.8); WHITE BLOOD COUNT 8.1 10^3/ul (4.8-10.8)
[2016-02-18 07:03] LABS: CONDITION 1; LH ANALYZER COMMENTS 1
[2016-02-18 07:07] LABS: INR 1.21; PROTIME 15.4 Sec (12.2-14.2); PT RATIO 1.2
[2016-02-18 07:08] LABS: ALBUMIN 2.1 g/dl (3.3-4.9); PARTIAL THROMBOPLASTIN TIME 29.7 Sec (25.0-35.0); POTASSIUM 3.5 mmol/L (3.5-5.1)
[2016-02-18 07:10] LABS: ALBUMIN/GLOBULIN RATIO 0.7; BILIRUBIN,INDIRECT 0.4 mg/dl (0-1.1); BILIRUBIN,TOTAL 0.4 mg/dl (0.2-1.3); CREATININE 0.56 mg/dl (0.44-1.00); TOTAL PROTEIN 5.1 g/dl (6.1-8.1)
[2016-02-18 07:11] LABS: CALCIUM 8.2 mg/dl (8.4-10.2); MAGNESIUM 1.9 mg/dl (1.7-2.5); PHOSPHORUS 1.8 mg/dl (2.5-4.9)
[2016-02-18] MEDS: INSULIN ASPART [NOVOLOG] 3 ML PEN SC SCH ×4 (07:58→21:00)
[2016-02-18] MEDS: FOLIC ACID 1 MG TAB PO SCH (08:39)
[2016-02-18] MEDS: morphine (ER) 15 MG TAB PO SCH ×2 (08:40→21:38)
[2016-02-18] MEDS: LACTOBACILLUS CHEW TAB PO SCH (08:41)
[2016-02-18] MEDS: hydrALAzine 20 MG INJ IV PRN (08:47)
[2016-02-18] MEDS ORDERED: PHYTONADIONE 5 MG TAB PO ONE (10:00)
[2016-02-18] MEDS: ATENOLOL 25 MG TAB PO SCH (10:03)
[2016-02-18] MEDS ORDERED: POTASSIUM PHOSPHATE 30 MM in SOD CHLORIDE 0.9% 250 ML IVPB ONE (11:00)
--- NOTE | 2016-02-18 11:56 | GILP ---
DATE OF PROCEDURE: 02/17/2016 NAME OF PROCEDURE: Colonoscopy with snare polypectomy and colonoscopy with biopsies. SURGEON: Magan Lee MD PREOPERATIVE DIAGNOSIS(ES) POSTOPERATIVE DIAGNOSIS(ES) BRIEF HISTORY AND INDICATIONS: The patient is being evaluated for rectal bleeding. Previous attemp ts at colonoscopy were hampered by very poor preparation. PREMEDICATION: Monitored anesthesia care by anesthesiologist. INSTRUMENT USED: Olympus colonoscope. PREPARATION: Adequate. TECHNIQUE: After informed consent, with the patient/relatives understanding the procedure, its indic ations potential risks and complications, including but not limited to: allergic reaction, bleeding, perforation, infection, missed lesions and after all pertinent questions were answered to the patie nt's satisfaction, the patient/relatives signed the witnessed informed consent. Following this, premedication was administered slowly IV push by under careful cardiovascular and re spiratory monitoring with pulse oximetry, automatic blood pressure and surveillance monitor. Once the sedativ e effect was achieved, the patient was placed in the left lateral decubitus position, digital rectal examination was performed. The colonoscope was then introduced and advanced under visual control th roughout all segments of the colon including: the rectum, sigmoid, descending colon, splenic flexure , transverse colon, hepatic flexure, ascending colon and finally reaching the cecum which was clearl y identified by transillumination, finger indentation and the ileocecal valve. Careful examination o f the mucosa of the lower gastrointestinal tract both on insertion as well as withdrawal of the inst rument disclosed the following findings: Rectal Examination: Small external hemorrhoids are noted. Colonic Mucosa: The colonic mucosa is remarkable for the presence of a 2 cm rectal ulceration on a mount, somewhat suspicion for the possibility of infiltrative process, i.e. neoplasm. Multiple biop sies were obtained. The tissue appears soft to the biopsies. An 8 mm pedunculated sigmoid polyp was noted and snared and retrieved. The remainder of the colonic mucosa is unremarkable throughout. The ileocecal valve is clearly iden tified and appears unremarkable. The instrument was withdrawn, reexamining the mucosa in detail. N o additional abnormalities are noted with the exception of large abdominal hemorrhoids with no evide nce of bleeding. The instrument was then withdrawn, the patient tolerated the procedure well and was transferred out of the Endoscopy Suite awake and in good condition to continue recovery under observation. IMPRESSION: 1. A 2 cm rectal ulcer on a mount, rule out carcinoma. Biopsies were obtained. 2. An 8 mm sigmoid polyp snared and retrieved. 3. Large internal hemorrhoids. PLAN: The patient will be prescribed Rowasa enemas, and pathology will be reviewed as soon as avail able. CEA titers will be requested as well. Dictated By: MAGAN LEE MS/JEANE Conf#: [id number] DID#: [id number]
[2016-02-18] MEDS: ONDANSETRON 4 MG INJ IV PRN (13:05)
--- NOTE | 2016-02-18 14:30 | PN ---
Date/Time of Note Date/Time of Note DATE: 02/18/16 TIME: 14:15 Assessment/Plan VTE Prophylaxis VTE Prophylaxis Intervention: SCD's Lines/Catheters IV [facility] Type [facility]from [facility] [place] [facility] Urinary Cath still in place: No Assessment/Plan Assessment/Plan 61-year-old, unfortunate female with: 1. Acute severe symptomatic anemia 2ry to lower GIB, s/p 4 units pRBC and 2 units FFP S/p colonoscopy yesterday with rectal ulceration, bx pending Large hemorrhoids Hb stable. Awaiting pathology 2. Metastatic spindle cell carcinoma, with metastasis to Lung, bones and large left renal and adrenal masses Full code Resume oral chemotherapeutic agent after GIB work up if appropriate. Appreciate recommendations from Dr Godoy and Dr Horn 3. Hypertension. Back on Atenolol today and continue Hydralazine prn. Bp better controlled 4. Diabetes mellitus: Sliding scale insulin. 5. Lethargic, generalized weakness. Most likely related to episode of acute bleeding, anemia and metastatic carcinoma Continue to monitor and transfuse pRBC prn. 6. Urinary tract infection diagnosed at [facility]. Continue Levaquin. 7. Coagulopathy, most likely related to metastatic disease. FFP prn acute bleeding. Monitor INR. Vitamin K today Prophylaxis. Protonix for gastrointestinal prophylaxis. SCDs to lower extremity for deep vein thrombosis prophylaxis. DISPOSITION: Awaiting pathology and disposition once prognosis and diagnosis addressed with Oncology hopefully Subjective 24 Hr Interval Summary Free Text/Dictation Patient feels weak and with poor appetite currently Pathology pending from rectal ulcer Hb mostly stable Electrolytes better Exam/Review of Systems Vital Signs Vitals Vital Signs Date Time Temp Pulse Resp B/P Pulse Ox O2 Delivery O2 Flow Rate FiO2 02/18/16 12:42 98.0 92 18 124/66 98 02/17/16 19:59 Nasal Cannula 2.0 Intake and Output 02/17/16 02/17/16 02/18/16 15:00 23:00 07:00 Intake Total 100 ml 1500 ml Balance 100 ml 1500 ml Exam Constitutional: alert, frail, obese, oriented Respiratory: clear to auscultation, normal air movement Cardiovascular: nl pulses, regular rate and rhythm Gastrointestinal: non-tender, soft Musculoskeletal: nl extremities to inspection Extremities: normal pulses, other (some anasarca noted ) 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: ACCOUNT REVIEW SPECIALIST II-XII intact, lethargic, nl mental status, nl speech Results Result Diagram: 02/18/16 0620 02/18/16 0620 Results 24 hrs Laboratory Tests Test 02/17/16 14:40 02/17/16 16:26 02/17/16 20:44 02/18/16 06:20 Anion Gap 10 11 Blood Urea Nitrogen 8 7 Calcium Level 8.2 L 8.2 L Carbon Dioxide Level 24 23 Carcinoembryonic Antigen 1.1 Chloride Level 110 110 Creatinine 0.53 0.56 Glucose Level 105 123 Magnesium Level 2.0 1.9 Potassium Level 2.7 *L 3.5 Sodium Level 141 140 Bedside Glucose 111 109 Activated Partial Thromboplast Time 29.7 Alanine Aminotransferase (ALT/SGPT) 18 Albumin 2.1 L Albumin/Globulin Ratio 0.70 Alkaline Phosphatase 85 Aspartate Amino Transf (AST/SGOT) 10 L Basophils # 0.0 Basophils % 0.1 Blood Morphology Comment Direct Bilirubin 0.00 Eosinophils # 0.1 Eosinophils % 0.8 Globulin 3.00 Hematocrit 26.4 L Hemoglobin 9.0 L INR International Normalized Ratio 1.21 Indirect Bilirubin 0.4 Lymphocytes # 0.9 Lymphocytes % 11.5 L Mean Corpuscular Hemoglobin 29.9 Mean Corpuscular Hemoglobin Concent 34.0 Mean Corpuscular Volume 87.7 Mean Platelet Volume 6.5 L Monocytes # 0.5 Monocytes % 6.0 Neutrophils # 6.6 Neutrophils % 81.6 H Nucleated Red Blood Cells # 0.0 Nucleated Red Blood Cells % 0.0 Phosphorus Level 1.8 L Platelet Count 141 # Prothrombin Time 15.4 H Prothrombin Time Ratio 1.2 Red Blood Count 3.01 L Red Cell Distribution Width 16.1 H Total Bilirubin 0.4 Total Protein 5.1 L White Blood Count 8.1 # Test 02/18/16 07:26 02/18/16 11:45 Bedside Glucose 134 147 Medications Medications Current Medications Folic Acid (Folic Acid) 5 mg DAILY PO Last administered on 02/18/16 08:39; Admin Dose 5 MG; Start 02/14/16 at 09:00 Meclizine HCl (Antivert) 25 mg Q8H PRN PO DIZZINESS Last administered on 14:11; Admin Dose 25 MG; Start 02/13/16 at 17:00 Morphine Sulfate (Ms Contin (Er)) 15 mg Q12 PO Last administered on 02/18/16 08:40; Admin Dose 15 MG; Start 02/13/16 at 21:00 Oxycodone HCl (Roxicodone) 10 mg Q4H PRN PO PAIN; Start 02/13/16 at 17:00 Sunitinib (Sutent) 50 mg DAILY PO ; Start 02/14/16 at 09:00; Status UNV Trazodone HCl (Desyrel) 25 mg QHS PRN PO INSOMNIA; Start 02/13/16 at 17:00 Lactobacillus Acidoph/Bulgaricus (Floranex) 1 tab DAILY PO Last administered on 02/18/16 08:41; Admin Dose 1 TAB; Start 02/14/16 at 09:00 Ondansetron HCl (Zofran Inj) 4 mg Q6H PRN IV NAUSEA AND/OR VOMITING Last administered on 02/18/16 13:05; Admin Dose 4 MG; Start 02/13/16 at 17:00 Acetaminophen (Tylenol Tab) 650 mg Q6H PRN PO PAIN LEVEL 1-3 OR FEVER Last administered on 02/15/16 02:29; Admin Dose 650 MG; Start 02/13/16 at 17:00 Morphine Sulfate (morphine) 2 mg Q4H PRN IV PAIN LEVEL 7-10; Start 02/13/16 at 17:00 Docusate Sodium (Colace) 100 mg Q12H PRN PO CONSTIPATION; Start 02/13/16 at 17: 00 Magnesium Hydroxide (Milk Of Mag) 30 ml DAILY PRN PO CONSTIPATION; Start at 17:00 Bisacodyl (Dulcolax Supp) 10 mg DAILY PRN [place] CONSTIPATION; Start 02/13/16 at 17: 00 Miscellaneous Information 1 ea NOTE XX ; Start 02/13/16 at 17:30 Glucose (Glutose) 15 gm Q15M PRN PO DECREASED GLUCOSE; Start 02/13/16 at 17:30 Glucose (Glutose) 22.5 gm Q15M PRN PO DECREASED GLUCOSE; Start 02/13/16 at 17:30 Dextrose (D50w Syringe) 25 ml Q15M PRN IV DECREASED GLUCOSE; Start 02/13/16 at 17:30 Dextrose (D50w Syringe) 50 ml Q15M PRN IV DECREASED GLUCOSE; Start 02/13/16 at 17:30 Glucagon (Glucagen) 1 mg Q15M PRN IM DECREASED GLUCOSE; Start 02/13/16 at 17:30 Glucose (Glutose) 15 gm Q15M PRN BUCCAL DECREASED GLUCOSE; Start 02/13/16 at 17: 30 Miscellaneous Information MEDICATION REQUIRES CLARIFICATI... Q8H XX ; Start 02/13/16 at 17:30; Status Future Hold Pantoprazole 80 mg/Sodium Chloride 100 ml @ 10 mls/hr Q10H IV Last administered on 02/18/16 05:09; Admin Dose 10 MLS/HR; Start 02/13/16 at 19:00 Potassium Chloride/Sodium Chloride (KCl/NS) 1,020 ml @ 100 mls/hr [id number] IV Last administered on 02/18/16 05:10; Admin Dose 100 MLS/HR; Start 02/17/16 at 17 :00 Hydralazine HCl (Apresoline) 10 mg Q8H PRN IV ELEVATED BLOOD PRESSURE Last administered on 02/18/16 08:47; Admin Dose 10 MG; Start 02/17/16 at 16:00 Mesalamine (Rowasa) 4 gm HS [place] Last administered on 02/17/16 22:00; Admin Dose 4 GM; Start 02/17/16 at 21:00 Diagnostic Test (Pha) 1 ea 1 ea 02 XX ; Start 02/18/16 at 02:00 Potassium Phosphate/Sodium Chloride (K Phos (Mm)/NS) 260 ml @ 43.333 mls/ hr ONCE ONCE IVPB Last administered on 02/18/16 10:57; Admin Dose 43.333 MLS/HR ; Start 02/18/16 at 11:00; Stop 02/18/16 at 16:59 Atenolol (Tenormin) 25 mg DAILY PO Last administered on 02/18/16 10:03; Admin Dose 25 MG; Start 02/18/16 at 09:30 JOSE TORIBIO Feb 18, 2016 14:29
--- NOTE | 2016-02-18 17:45 | CONS ---
Date/Time of Note Date/Time of Note DATE: 02/18/16 TIME: 17:44 Assessment/Plan Assessment/Plan Additional Assessment/Plan Rectal bleeding * Colonoscopy * : A 2 cm rectal ulcer on a mount, rule out carcinoma. Biopsies were obtained. * An 8 mm sigmoid polyp snared and retrieved. * Large internal hemorrhoids. * CT abdomen * 1. Large heterogeneously enhancing mass of the left kidney with invasion of the left renal vein. 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 There is extension of tumor beyond the perirenal fascia and into the lateral conal fascia and into the paracolic gutter. * 2. Neoplastic retroperitoneal lymphadenopathy. * 3. Heterogeneous nodular enlargement of the left adrenal gland raises suspicion for adrenal metastasis. * 4. Skeletal metastases. * 5. Multiple small noncalcified pulmonary nodules throughout the lung bases suggest the presence of pulmonary metastases. * 6. Moderate volume of formed stool within the rectum with mild associated concentric rectal wall thickening and dean rectal infiltration. Fecal impaction with underlying rectal inflammation is suspected. * PPI drip * Monitor H&H every 6 hours, transfuse 2 units for hemoglobin less than 7.5 * Correct INR with FFP as needed Kidney cancer * Reports diagnosis 1 month from [facility] * Unsure staging and prognosis Abdominal pain/nausea/nonbloody bilious vomiting * EGD: Gastritis. Biopsies negative for H. pylori and malignancy Further recommendations depend on clinical course GI sign off, available as needed for consultation. Patient seen in collaboration with Dr. Lee Consultation Date/Type/Reason Admit Date/Time Feb 13, 2016 at 16:04 Type of Consultation: Gastroenterology Referring Provider: JOSE TORIBIO 24 HR Interval Summary Free Text/Dictation Advised patient of colonoscopy results Awaiting biopsy results Oncology following Reports nausea and slight diffuse abdominal pain Start Reglan 10 every 6 hours Exam/Review of Systems Vital Signs Vitals Vital Signs Date Time Temp Pulse Resp B/P Pulse Ox O2 Delivery O2 Flow Rate FiO2 02/18/16 16:03 90 02/18/16 16:03 97.5 18 141/71 90 02/17/16 19:59 Nasal Cannula 2.0 Intake and Output 02/17/16 02/17/16 02/18/16 15:00 23:00 07:00 Intake Total 100 ml 1500 ml Balance 100 ml 1500 ml Exam Constitutional: alert, oriented, well developed Psych: nl mood/affect, no complaints Head: normocephalic Eyes: EOMI ENMT: nl external ears & nose, nl lips & teeth, nl nasal mucosa & septum Respiratory: normal air movement Cardiovascular: regular rate and rhythm Gastrointestinal: soft, tender (Diffuse) 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: SCRAPER BURRER II-XII intact Results Result Diagram: 02/18/16 0620 02/18/16 0620 Results 24 hrs Laboratory Tests Test 02/17/16 20:44 02/18/16 06:20 02/18/16 07:26 02/18/16 11:45 Bedside Glucose 109 134 147 Activated Partial Thromboplast Time 29.7 Alanine Aminotransferase (ALT/SGPT) 18 Albumin 2.1 L Albumin/Globulin Ratio 0.70 Alkaline Phosphatase 85 Anion Gap 11 Aspartate Amino Transf (AST/SGOT) 10 L Basophils # 0.0 Basophils % 0.1 Blood Morphology Comment Blood Urea Nitrogen 7 Calcium Level 8.2 L Carbon Dioxide Level 23 Chloride Level 110 Creatinine 0.56 Direct Bilirubin 0.00 Eosinophils # 0.1 Eosinophils % 0.8 Globulin 3.00 Glucose Level 123 Hematocrit 26.4 L Hemoglobin 9.0 L INR International Normalized Ratio 1.21 Indirect Bilirubin 0.4 Lymphocytes # 0.9 Lymphocytes % 11.5 L Magnesium Level 1.9 Mean Corpuscular Hemoglobin 29.9 Mean Corpuscular Hemoglobin Concent 34.0 Mean Corpuscular Volume 87.7 Mean Platelet Volume 6.5 L Monocytes # 0.5 Monocytes % 6.0 Neutrophils # 6.6 Neutrophils % 81.6 H Nucleated Red Blood Cells # 0.0 Nucleated Red Blood Cells % 0.0 Phosphorus Level 1.8 L Platelet Count 141 # Potassium Level 3.5 Prothrombin Time 15.4 H Prothrombin Time Ratio 1.2 Red Blood Count 3.01 L Red Cell Distribution Width 16.1 H Sodium Level 140 Total Bilirubin 0.4 Total Protein 5.1 L White Blood Count 8.1 # Medications Medications Current Medications Folic Acid (Folic Acid) 5 mg DAILY PO Last administered on 02/18/16 08:39; Admin Dose 5 MG; Start 02/14/16 at 09:00 Meclizine HCl (Antivert) 25 mg Q8H PRN PO DIZZINESS Last administered on 14:11; Admin Dose 25 MG; Start 02/13/16 at 17:00 Morphine Sulfate (Ms Contin (Er)) 15 mg Q12 PO Last administered on 02/18/16 08:40; Admin Dose 15 MG; Start 02/13/16 at 21:00 Oxycodone HCl (Roxicodone) 10 mg Q4H PRN PO PAIN; Start 02/13/16 at 17:00 Sunitinib (Sutent) 50 mg DAILY PO ; Start 02/14/16 at 09:00; Status UNV Trazodone HCl (Desyrel) 25 mg QHS PRN PO INSOMNIA; Start 02/13/16 at 17:00 Lactobacillus Acidoph/Bulgaricus (Floranex) 1 tab DAILY PO Last administered on 02/18/16 08:41; Admin Dose 1 TAB; Start 02/14/16 at 09:00 Ondansetron HCl (Zofran Inj) 4 mg Q6H PRN IV NAUSEA AND/OR VOMITING Last administered on 02/18/16 13:05; Admin Dose 4 MG; Start 02/13/16 at 17:00 Acetaminophen (Tylenol Tab) 650 mg Q6H PRN PO PAIN LEVEL 1-3 OR FEVER Last administered on 02/15/16 02:29; Admin Dose 650 MG; Start 02/13/16 at 17:00 Morphine Sulfate (morphine) 2 mg Q4H PRN IV PAIN LEVEL 7-10; Start 02/13/16 at 17:00 Docusate Sodium (Colace) 100 mg Q12H PRN PO CONSTIPATION; Start 02/13/16 at 17: 00 Magnesium Hydroxide (Milk Of Mag) 30 ml DAILY PRN PO CONSTIPATION; Start at 17:00 Bisacodyl (Dulcolax Supp) 10 mg DAILY PRN [place] CONSTIPATION; Start 02/13/16 at 17: 00 Miscellaneous Information 1 ea NOTE XX ; Start 02/13/16 at 17:30 Glucose (Glutose) 15 gm Q15M PRN PO DECREASED GLUCOSE; Start 02/13/16 at 17:30 Glucose (Glutose) 22.5 gm Q15M PRN PO DECREASED GLUCOSE; Start 02/13/16 at 17:30 Dextrose (D50w Syringe) 25 ml Q15M PRN IV DECREASED GLUCOSE; Start 02/13/16 at 17:30 Dextrose (D50w Syringe) 50 ml Q15M PRN IV DECREASED GLUCOSE; Start 02/13/16 at 17:30 Glucagon (Glucagen) 1 mg Q15M PRN IM DECREASED GLUCOSE; Start 02/13/16 at 17:30 Glucose (Glutose) 15 gm Q15M PRN BUCCAL DECREASED GLUCOSE; Start 02/13/16 at 17: 30 Miscellaneous Information MEDICATION REQUIRES CLARIFICATI... Q8H XX ; Start 02/13/16 at 17:30; Status Future Hold Pantoprazole 80 mg/Sodium Chloride 100 ml @ 10 mls/hr Q10H IV Last administered on 02/18/16 15:19; Admin Dose 10 MLS/HR; Start 02/13/16 at 19:00 Potassium Chloride/Sodium Chloride (KCl/NS) 1,020 ml @ 100 mls/hr [id number] IV Last administered on 02/18/16 05:10; Admin Dose 100 MLS/HR; Start 02/17/16 at 17 :00 Hydralazine HCl (Apresoline) 10 mg Q8H PRN IV ELEVATED BLOOD PRESSURE Last administered on 02/18/16 08:47; Admin Dose 10 MG; Start 02/17/16 at 16:00 Mesalamine (Rowasa) 4 gm HS [place] Last administered on 02/17/16 22:00; Admin Dose 4 GM; Start 02/17/16 at 21:00 Diagnostic Test (Pha) (Accucheck) 02 XX ; Start 02/18/16 at 02:00 Atenolol (Tenormin) 25 mg DAILY PO Last administered on 02/18/16 10:03; Admin Dose 25 MG; Start 02/18/16 at 09:30 ROBERTO HORTA Feb 18, 2016 17:45
[2016-02-18] MEDS: METOCLOPRAMIDE 10 MG INJ IV SCH ×2 (17:55→23:49)
[2016-02-18] MEDS: MESALAMINE 4 GM/60 ML ENEMA PR SCH ×2 (21:00→22:40)
[2016-02-19] VITALS (12 sets, daily range): BP systolic 135–149; BP diastolic 71–74; PULSE 80–94; RESP 16–20
[2016-02-19] MEDS: ACCUCHECK XX SCH (02:00)
[2016-02-19] MEDS: PANTOPRAZOLE IV 80 MG in SOD CHLORIDE 0.9% 100 ML IV SCH ×2 (05:00→12:14)
[2016-02-19] MEDS: METOCLOPRAMIDE 10 MG INJ IV SCH ×4 (05:28→23:24)
[2016-02-19] MEDS: POTASSIUM CHLORIDE 40 MEQ in SOD CHLORIDE 0.9% 1,000 ML IV SCH ×2 (05:30→09:48)
[2016-02-19 06:30] LABS: BASOPHILS % 0.4 % (0.0-2.0); EOSINOPHILS # 0.1 10^3/ul (0.0-0.5); EOSINOPHILS % 1.1 % (0.0-7.0); HEMOGLOBIN 9.1 g/dl (12.0-16.0); LYMPHOCYTES # 1.1 10^3/ul (0.8-2.9); LYMPHOCYTES % 12.3 % (15.0-51.0); MEAN CORPUSCULAR HEMOGLOBIN 29.7 pg (29.0-33.0); MEAN CORPUSCULAR HGB CONC 33.9 g/dl (32.0-37.0); MEAN CORPUSCULAR VOLUME 87.6 fl (82.0-101.0); MEAN PLATELET VOLUME 6.4 fl (7.4-10.4); MONOCYTE # 0.5 10^3/ul (0.3-0.9); MONOCYTES % 5.6 % (0.0-11.0); NEUTROPHIL # 7.2 10^3/ul (1.6-7.5); NEUTROPHILS % 80.6 % (39.0-77.0); PLATELET COUNT 136 10^3/UL (140-440); RED BLOOD COUNT 3.08 10^6/ul (4.20-5.40); RED CELL DISTRIBUTION WIDTH 16.4 % (11.5-14.5); UNCORRECTED WBC 8.9 10^3/ul (4.8-10.8); WHITE BLOOD COUNT 8.9 10^3/ul (4.8-10.8)
[2016-02-19 06:43] LABS: CONDITION 1; LH ANALYZER COMMENTS 1
[2016-02-19 06:57] LABS: ALBUMIN 2.2 g/dl (3.3-4.9)
[2016-02-19 06:58] LABS: POTASSIUM 4.4 mmol/L (3.5-5.1)
[2016-02-19 07:00] LABS: ALBUMIN/GLOBULIN RATIO 0.66; BILIRUBIN,INDIRECT 0.5 mg/dl (0-1.1); BILIRUBIN,TOTAL 0.5 mg/dl (0.2-1.3); CREATININE 0.57 mg/dl (0.44-1.00); TOTAL PROTEIN 5.5 g/dl (6.1-8.1)
[2016-02-19 07:01] LABS: CALCIUM 8.5 mg/dl (8.4-10.2)
[2016-02-19] MEDS: INSULIN ASPART [NOVOLOG] 3 ML PEN SC SCH ×4 (08:00→20:37)
[2016-02-19 08:47] LABS: PHOSPHORUS 2.6 mg/dl (2.5-4.9)
[2016-02-19 08:48] LABS: MAGNESIUM 1.9 mg/dl (1.7-2.5)
--- NOTE | 2016-02-19 09:05 | CONS ---
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 Mucinous tubular and spindle cell renal cell carcinoma is a rare, recently described variant of renal cell carcinoma ranging from low to high grade that includes sarcomatoid differentiation. "For metastatic diseases, there are no reports of systemic treatment guideline published to date. Most recently one case of metastatic MTSRCC showing a response to sunitinib has been documented" ( Alton M, Kurt XL, Duncan XD. Mucinous tubular and spindle cell renal cell carcinoma : a review of clinicopathologic aspects. Diagn Pathol. 2015 Oct 17;10:168. doi: 10.1186/[id number]). - Will need to obtain path report from [facility] to confirm histologic diagnosis and grade, etc. - Hold sunitinib for now given concern for GIB; bleeding events have been reported in 26% of patients receiving sunitinib for mRCC, including rectal, upper gastrointestinal bleeding though less commonly (Crista C, Sha D, Christie R, Wade A, Gaspo R, Angelo G. Sunitinib therapy for metastatic renal cell carcinoma: recommendations for management of side effects. [place] [employer] Journal. 2007;1(2 Suppl):S41-S54). May be able to resume once GI workup complete. - Gastric antrum/body bx showed no evidence of malignancy, negative for H. pylori - 02/17/16 colonoscopy showed 2 cm rectal ulcer, and 8 mm sigmoid polyp with large internal hemorrhoids, f/u path - Patient to follow up with Dr. Bejarano as an outpatient. -Will continue to follow Problems: Consultation Date/Type/Reason Admit Date/Time Feb 13, 2016 at 16:04 Initial Consult Date 02/16/16 Type of Consultation: Hematology/Oncology Referring Provider: JOSE TORIBIO 24 HR Interval Summary Free Text/Dictation Patient complaining of left lower quadrant pain, which is not new, for which she had just received pain medication. No rectal bleeding. Exam/Review of Systems Vital Signs Vitals Vital Signs Date Time Temp Pulse Resp B/P Pulse Ox O2 Delivery O2 Flow Rate FiO2 02/19/16 08:09 92 02/19/16 07:54 98.0 18 143/71 98 02/17/16 19:59 Nasal Cannula 2.0 Intake and Output 02/18/16 02/18/16 02/19/16 15:00 23:00 07:00 Intake Total 100 ml 380 ml 1480 ml Balance 100 ml 380 ml 1480 ml Exam Constitutional: alert, oriented, other (weak) Psych: no complaints Head: atraumatic, normocephalic Eyes: nl conjunctiva ENMT: nl external ears & nose Neck: non-tender, supple Respiratory: clear to auscultation, normal air movement Cardiovascular: nl pulses, regular rate and rhythm Gastrointestinal: soft Musculoskeletal: nl extremities to inspection, nl gait and stance Results Result Diagram: 02/19/16 0600 02/19/16 0600 Results 24 hrs Laboratory Tests Test 02/18/16 11:45 02/18/16 17:50 02/18/16 21:40 02/19/16 06:00 Bedside Glucose 147 154 155 Alanine Aminotransferase (ALT/SGPT) 17 Albumin 2.2 L Albumin/Globulin Ratio 0.66 Alkaline Phosphatase 78 Anion Gap 12 Aspartate Amino Transf (AST/SGOT) 10 L Basophils # 0.0 Basophils % 0.4 Blood Morphology Comment Blood Urea Nitrogen 7 Calcium Level 8.5 Carbon Dioxide Level 23 Chloride Level 108 Creatinine 0.57 Direct Bilirubin 0.00 Eosinophils # 0.1 Eosinophils % 1.1 Globulin 3.30 H Glucose Level 115 Hematocrit 27.0 L Hemoglobin 9.1 L Indirect Bilirubin 0.5 Lymphocytes # 1.1 Lymphocytes % 12.3 L Mean Corpuscular Hemoglobin 29.7 Mean Corpuscular Hemoglobin Concent 33.9 Mean Corpuscular Volume 87.6 Mean Platelet Volume 6.4 L Monocytes # 0.5 Monocytes % 5.6 Neutrophils # 7.2 Neutrophils % 80.6 H Nucleated Red Blood Cells # 0.0 Nucleated Red Blood Cells % 0.0 Platelet Count 136 L Potassium Level 4.4 Red Blood Count 3.08 L Red Cell Distribution Width 16.4 H Sodium Level 139 Total Bilirubin 0.5 Total Protein 5.5 L White Blood Count 8.9 Test 02/19/16 06:20 02/19/16 08:21 Magnesium Level 1.9 Phosphorus Level 2.6 Bedside Glucose 121 Medications Medications Current Medications Folic Acid (Folic Acid) 5 mg DAILY PO Last administered on 02/18/16 08:39; Admin Dose 5 MG; Start 02/14/16 at 09:00 Meclizine HCl (Antivert) 25 mg Q8H PRN PO DIZZINESS Last administered on 14:11; Admin Dose 25 MG; Start 02/13/16 at 17:00 Morphine Sulfate (Ms Contin (Er)) 15 mg Q12 PO Last administered on 02/18/16 21:38; Admin Dose 15 MG; Start 02/13/16 at 21:00 Oxycodone HCl (Roxicodone) 10 mg Q4H PRN PO PAIN; Start 02/13/16 at 17:00 Sunitinib (Sutent) 50 mg DAILY PO ; Start 02/14/16 at 09:00; Status UNV Trazodone HCl (Desyrel) 25 mg QHS PRN PO INSOMNIA; Start 02/13/16 at 17:00 Lactobacillus Acidoph/Bulgaricus (Floranex) 1 tab DAILY PO Last administered on 02/18/16 08:41; Admin Dose 1 TAB; Start 02/14/16 at 09:00 Ondansetron HCl (Zofran Inj) 4 mg Q6H PRN IV NAUSEA AND/OR VOMITING Last administered on 02/18/16 13:05; Admin Dose 4 MG; Start 02/13/16 at 17:00 Acetaminophen (Tylenol Tab) 650 mg Q6H PRN PO PAIN LEVEL 1-3 OR FEVER Last administered on 02/15/16 02:29; Admin Dose 650 MG; Start 02/13/16 at 17:00 Morphine Sulfate (morphine) 2 mg Q4H PRN IV PAIN LEVEL 7-10; Start 02/13/16 at 17:00 Docusate Sodium (Colace) 100 mg Q12H PRN PO CONSTIPATION; Start 02/13/16 at 17: 00 Magnesium Hydroxide (Milk Of Mag) 30 ml DAILY PRN PO CONSTIPATION; Start at 17:00 Bisacodyl (Dulcolax Supp) 10 mg DAILY PRN [place] CONSTIPATION; Start 02/13/16 at 17: 00 Miscellaneous Information 1 ea NOTE XX ; Start 02/13/16 at 17:30 Glucose (Glutose) 15 gm Q15M PRN PO DECREASED GLUCOSE; Start 02/13/16 at 17:30 Glucose (Glutose) 22.5 gm Q15M PRN PO DECREASED GLUCOSE; Start 02/13/16 at 17:30 Dextrose (D50w Syringe) 25 ml Q15M PRN IV DECREASED GLUCOSE; Start 02/13/16 at 17:30 Dextrose (D50w Syringe) 50 ml Q15M PRN IV DECREASED GLUCOSE; Start 02/13/16 at 17:30 Glucagon (Glucagen) 1 mg Q15M PRN IM DECREASED GLUCOSE; Start 02/13/16 at 17:30 Glucose (Glutose) 15 gm Q15M PRN BUCCAL DECREASED GLUCOSE; Start 02/13/16 at 17: 30 Miscellaneous Information MEDICATION REQUIRES CLARIFICATI... Q8H XX ; Start 02/13/16 at 17:30; Status Future Hold Pantoprazole 80 mg/Sodium Chloride 100 ml @ 10 mls/hr Q10H IV Last administered on 02/18/16 23:18; Admin Dose 10 MLS/HR; Start 02/13/16 at 19:00 Potassium Chloride/Sodium Chloride (KCl/NS) 1,020 ml @ 100 mls/hr [id number] IV Last administered on 02/19/16 05:30; Admin Dose 100 MLS/HR; Start 02/17/16 at 17 :00 Hydralazine HCl (Apresoline) 10 mg Q8H PRN IV ELEVATED BLOOD PRESSURE Last administered on 02/18/16 08:47; Admin Dose 10 MG; Start 02/17/16 at 16:00 Mesalamine (Rowasa) 4 gm HS [place] Last administered on 02/18/16 22:40; Admin Dose 4 GM; Start 02/17/16 at 21:00 Diagnostic Test (Pha) (Accucheck) 1 ea 02 XX ; Start 02/18/16 at 02:00 Atenolol (Tenormin) 25 mg DAILY PO Last administered on 02/18/16 10:03; Admin Dose 25 MG; Start 02/18/16 at 09:30 Metoclopramide HCl (Reglan) 10 mg Q6H IV Last administered on 02/19/16 05:28; Admin Dose 10 MG; Start 02/18/16 at 18:00 ROSENDA MARLOW MD Feb 19, 2016 09:05
[2016-02-19] MEDS: LACTOBACILLUS CHEW TAB PO SCH (09:16)
[2016-02-19] MEDS: FOLIC ACID 1 MG TAB PO SCH (09:17)
[2016-02-19] MEDS: ATENOLOL 25 MG TAB PO SCH (09:17)
[2016-02-19] MEDS: morphine (ER) 15 MG TAB PO SCH ×2 (09:18→21:24)
--- NOTE | 2016-02-19 15:35 | PN ---
Date/Time of Note Date/Time of Note DATE: 02/19/16 TIME: 15:26 Assessment/Plan VTE Prophylaxis VTE Prophylaxis Intervention: SCD's Lines/Catheters IV [facility] (from [facility]ine [facility] Urinary Cath still in place: No Assessment/Plan Assessment/Plan 61-year-old, unfortunate female with: 1. Acute severe symptomatic anemia 2ry to lower GIB, s/p 4 units pRBC and 2 units FFP S/p colonoscopy yesterday with rectal ulceration, bx pending Large hemorrhoids Hb stable. Pathology benign so far 2. Metastatic spindle cell carcinoma, with metastasis to Lung, bones and large left renal and adrenal masses Full code Resume oral chemotherapeutic agent after GIB work up if appropriate. Appreciate recommendations from Dr Godoy and Dr Horn 3. Hypertension. Back on Atenolol today and continue Hydralazine prn. Bp better controlled 4. Diabetes mellitus: Sliding scale insulin. 5. Lethargic, generalized weakness. Most likely related to episode of acute bleeding, anemia and metastatic carcinoma Continue to monitor and transfuse pRBC prn. 6. Urinary tract infection diagnosed at [facility]. Continue Levaquin. 7. Coagulopathy, most likely related to metastatic disease. FFP prn acute bleeding. Monitor INR. Vitamin K today Prophylaxis. Protonix for gastrointestinal prophylaxis. SCDs to lower extremity for deep vein thrombosis prophylaxis. DISPOSITION: D/c plan to SNF tomorrow Subjective 24 Hr Interval Summary Free Text/Dictation Patient tolerating po today Labs stable SNF discharge by AM Exam/Review of Systems Vital Signs Vitals Vital Signs Date Time Temp Pulse Resp B/P Pulse Ox O2 Delivery O2 Flow Rate FiO2 02/19/16 12:15 97.5 78 18 137/73 98 02/17/16 19:59 Nasal Cannula 2.0 Intake and Output 02/18/16 02/18/16 02/19/16 15:00 23:00 07:00 Intake Total 100 ml 380 ml 1480 ml Balance 100 ml 380 ml 1480 ml Exam Constitutional: alert, frail, obese, oriented, well developed Respiratory: clear to auscultation, normal air movement Cardiovascular: nl pulses, regular rate and rhythm Gastrointestinal: non-tender, other (hemorrhoids ), soft Musculoskeletal: nl extremities to inspection Extremities: normal pulses, other (no edema, clubbing or cyanosis ) 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1 Eosinophils % 1.1 Globulin 3.30 H Glucose Level 115 Hematocrit 27.0 L Hemoglobin 9.1 L Indirect Bilirubin 0.5 Lymphocytes # 1.1 Lymphocytes % 12.3 L Mean Corpuscular Hemoglobin 29.7 Mean Corpuscular Hemoglobin Concent 33.9 Mean Corpuscular Volume 87.6 Mean Platelet Volume 6.4 L Monocytes # 0.5 Monocytes % 5.6 Neutrophils # 7.2 Neutrophils % 80.6 H Nucleated Red Blood Cells # 0.0 Nucleated Red Blood Cells % 0.0 Platelet Count 136 L Potassium Level 4.4 Red Blood Count 3.08 L Red Cell Distribution Width 16.4 H Sodium Level 139 Total Bilirubin 0.5 Total Protein 5.5 L White Blood Count 8.9 Magnesium Level 1.9 Phosphorus Level 2.6 Test 02/19/16 08:21 02/19/16 11:57 Bedside Glucose 121 122 Medications Medications Current Medications Folic Acid (Folic Acid) 5 mg DAILY PO Last administered on 02/19/16 09:17; Admin Dose 5 MG; Start 02/14/16 at 09:00 Meclizine HCl (Antivert) 25 mg Q8H PRN PO DIZZINESS Last administered on 14:11; Admin Dose 25 MG; Start 02/13/16 at 17:00 Morphine Sulfate (Ms Contin (Er)) 15 mg Q12 PO Last administered on 02/19/16 09:18; Admin Dose 15 MG; Start 02/13/16 at 21:00 Oxycodone HCl (Roxicodone) 10 mg Q4H PRN PO PAIN; Start 02/13/16 at 17:00 Sunitinib (Sutent) 50 mg DAILY PO ; Start 02/14/16 at 09:00; Status UNV Trazodone HCl (Desyrel) 25 mg QHS PRN PO INSOMNIA; Start 02/13/16 at 17:00 Lactobacillus Acidoph/Bulgaricus (Floranex) 1 tab DAILY PO Last administered on 02/19/16 09:16; Admin Dose 1 TAB; Start 02/14/16 at 09:00 Ondansetron HCl (Zofran Inj) 4 mg Q6H PRN IV NAUSEA AND/OR VOMITING Last administered on 02/18/16 13:05; Admin Dose 4 MG; Start 02/13/16 at 17:00 Acetaminophen (Tylenol Tab) 650 mg Q6H PRN PO PAIN LEVEL 1-3 OR FEVER Last administered on 02/15/16 02:29; Admin Dose 650 MG; Start 02/13/16 at 17:00 Morphine Sulfate (morphine) 2 mg Q4H PRN IV PAIN LEVEL 7-10 Last administered on 02/19/16 13:00; Admin Dose 2 MG; Start 02/13/16 at 17:00 Docusate Sodium (Colace) 100 mg Q12H PRN PO CONSTIPATION; Start 02/13/16 at 17: 00 Magnesium Hydroxide (Milk Of Mag) 30 ml DAILY PRN PO CONSTIPATION; Start at 17:00 Bisacodyl (Dulcolax Supp) 10 mg DAILY PRN [place] CONSTIPATION; Start 02/13/16 at 17: 00 Miscellaneous Information 1 ea NOTE XX ; Start 02/13/16 at 17:30 Glucose (Glutose) 15 gm Q15M PRN PO DECREASED GLUCOSE; Start 02/13/16 at 17:30 Glucose (Glutose) 22.5 gm Q15M PRN PO DECREASED GLUCOSE; Start 02/13/16 at 17:30 Dextrose (D50w Syringe) 25 ml Q15M PRN IV DECREASED GLUCOSE; Start 02/13/16 at 17:30 Dextrose (D50w Syringe) 50 ml Q15M PRN IV DECREASED GLUCOSE; Start 02/13/16 at 17:30 Glucagon (Glucagen) 1 mg Q15M PRN IM DECREASED GLUCOSE; Start 02/13/16 at 17:30 Glucose (Glutose) 15 gm Q15M PRN BUCCAL DECREASED GLUCOSE; Start 02/13/16 at 17: 30 Miscellaneous Information MEDICATION REQUIRES CLARIFICATI... Q8H XX ; Start 02/13/16 at 17:30; Status Future Hold Pantoprazole 80 mg/Sodium Chloride 100 ml @ 10 mls/hr Q10H IV Last administered on 02/19/16 12:14; Admin Dose 10 MLS/HR; Start 02/13/16 at 19:00 Potassium Chloride/Sodium Chloride (KCl/NS) 1,020 ml @ 100 mls/hr [id number] IV Last administered on 02/19/16 05:30; Admin Dose 100 MLS/HR; Start 02/17/16 at 17 :00 Hydralazine HCl (Apresoline) 10 mg Q8H PRN IV ELEVATED BLOOD PRESSURE Last administered on 02/18/16 08:47; Admin Dose 10 MG; Start 02/17/16 at 16:00 Mesalamine (Rowasa) 4 gm HS [place] Last administered on 02/18/16 22:40; Admin Dose 4 GM; Start 02/17/16 at 21:00 Diagnostic Test (Pha) (Accucheck) 1 ea 02 XX ; Start 02/18/16 at 02:00 Atenolol (Tenormin) 25 mg DAILY PO Last administered on 02/19/16 09:17; Admin Dose 25 MG; Start 02/18/16 at 09:30 Metoclopramide HCl (Reglan) 10 mg Q6H IV Last administered on 02/19/16 12:13; Admin Dose 10 MG; Start 02/18/16 at 18:00 JOSE TORIBIO Feb 19, 2016 15:35
[2016-02-19] MEDS: PANTOPRAZOLE (EC) 40 MG TAB PO SCH (18:25)
[2016-02-19] MEDS: MESALAMINE 4 GM/60 ML ENEMA PR SCH (21:24)
[2016-02-20 00:01] VITALS: BP 134/64; PULSE 80; RESP 20
[2016-02-20 01:30] VITALS: BP 136/70; RESP 18
[2016-02-20] MEDS: ACCUCHECK XX SCH (01:55)
[2016-02-20 05:27] LABS: BASOPHILS % 0.2 % (0.0-2.0); EOSINOPHILS # 0.1 10^3/ul (0.0-0.5); EOSINOPHILS % 0.9 % (0.0-7.0); HEMOGLOBIN 9.1 g/dl (12.0-16.0); LYMPHOCYTES # 1.4 10^3/ul (0.8-2.9); LYMPHOCYTES % 12.5 % (15.0-51.0); MEAN CORPUSCULAR HEMOGLOBIN 29.6 pg (29.0-33.0); MEAN CORPUSCULAR HGB CONC 33.7 g/dl (32.0-37.0); MEAN CORPUSCULAR VOLUME 87.8 fl (82.0-101.0); MEAN PLATELET VOLUME 6.5 fl (7.4-10.4); MONOCYTE # 0.7 10^3/ul (0.3-0.9); MONOCYTES % 6.2 % (0.0-11.0); NEUTROPHIL # 8.7 10^3/ul (1.6-7.5); NEUTROPHILS % 80.2 % (39.0-77.0); PLATELET COUNT 147 10^3/UL (140-440); RED BLOOD COUNT 3.08 10^6/ul (4.20-5.40); RED CELL DISTRIBUTION WIDTH 16.3 % (11.5-14.5); UNCORRECTED WBC 10.9 10^3/ul (4.8-10.8); WHITE BLOOD COUNT 10.9 10^3/ul (4.8-10.8)
[2016-02-20 05:31] LABS: MAGNESIUM 1.7 mg/dl (1.7-2.5); PHOSPHORUS 2.5 mg/dl (2.5-4.9)
[2016-02-20 05:36] LABS: ALBUMIN 2.2 g/dl (3.3-4.9); POTASSIUM 4.1 mmol/L (3.5-5.1)
[2016-02-20] MEDS: METOCLOPRAMIDE 10 MG INJ IV SCH ×4 (05:37→23:35)
[2016-02-20] MEDS: PANTOPRAZOLE (EC) 40 MG TAB PO SCH ×2 (05:37→17:41)
[2016-02-20 05:39] LABS: ALBUMIN/GLOBULIN RATIO 0.62; BILIRUBIN,INDIRECT 0.7 mg/dl (0-1.1); BILIRUBIN,TOTAL 0.7 mg/dl (0.2-1.3); CREATININE 0.54 mg/dl (0.44-1.00); TOTAL PROTEIN 5.7 g/dl (6.1-8.1)
[2016-02-20 05:40] LABS: CALCIUM 8.7 mg/dl (8.4-10.2)
[2016-02-20 05:43] LABS: CONDITION 1; LH ANALYZER COMMENTS 1
[2016-02-20] MEDS: oxyCODONE 5 MG TAB PO PRN ×2 (05:43→19:32)
[2016-02-20] MEDS: INSULIN ASPART [NOVOLOG] 3 ML PEN SC SCH ×4 (07:50→20:44)
[2016-02-20 08:09] VITALS: BP 148/72; RESP 18
[2016-02-20] MEDS: LACTOBACILLUS CHEW TAB PO SCH (08:51)
[2016-02-20] MEDS: ATENOLOL 25 MG TAB PO SCH (08:51)
[2016-02-20] MEDS: morphine (ER) 15 MG TAB PO SCH ×2 (08:51→21:12)
[2016-02-20] MEDS: FOLIC ACID 1 MG TAB PO SCH (08:51)
--- NOTE | 2016-02-20 09:08 | PDOCDIS ---
Discharge Instructions CONDITION Patient Condition: Stable HOME CARE INSTRUCTIONS: Special Diet: 1800 FOLLOW UP/APPOINTMENTS Appointments follow up with Dr Cadena within 1 to 2 weeks PT at [facility] JOSE TORIBIO Feb 20, 2016 09:08
--- NOTE | 2016-02-20 09:11 | PN ---
Date/Time of Note Date/Time of Note DATE: 02/20/16 TIME: 09:10 Assessment/Plan VTE Prophylaxis VTE Prophylaxis Intervention: SCD's Lines/Catheters IV C[facility]ter Type (from [facility]): Saline Lock Urinary Cath still in place: No Assessment/Plan Assessment/Plan 61-year-old, unfortunate female with: 1. Acute severe symptomatic anemia 2ry to lower GIB, s/p 4 units pRBC and 2 units FFP S/p colonoscopy yesterday with rectal ulceration, bx pending Large hemorrhoids Hb stable. Pathology benign so far 2. Metastatic spindle cell carcinoma, with metastasis to Lung, bones and large left renal and adrenal masses Full code Resume oral chemotherapeutic agent after follow up with dr Cadena and at lower dose likely Appreciate recommendations from Dr Godoy and Dr Horn 3. Hypertension. On Atenolol today and continue Hydralazine prn. Bp better controlled 4. Diabetes mellitus: Sliding scale insulin. 5. Lethargic, generalized weakness. Most likely related to episode of acute bleeding, anemia and metastatic carcinoma. Much improved and doing PT Continue to monitor h/h outpatient. 6. Urinary tract infection diagnosed at [facility]. 4 more days to complete Levaquin course. 7. Coagulopathy, most likely related to metastatic disease. Prophylaxis. Protonix for gastrointestinal prophylaxis. SCDs to lower extremity for deep vein thrombosis prophylaxis. DISPOSITION: D/c plan to SNF today when bed available and follow up with Dr Cadena within 1 week. Subjective 24 Hr Interval Summary Free Text/Dictation Patient doing better, tolerating po, did some PT today and no ongoing bleeding Looking of SNF at this time Exam/Review of Systems Vital Signs Vitals Vital Signs Date Time Temp Pulse Resp B/P Pulse Ox O2 Delivery O2 Flow Rate FiO2 02/20/16 08:09 97.9 101 18 148/72 96 02/20/16 00:01 Room Air 02/19/16 20:00 2.0 Intake and Output 02/19/16 02/19/16 02/20/16 15:00 23:00 07:00 Intake Total 970 ml 240 ml Balance 970 ml 240 ml Exam Constitutional: alert, obese, oriented Respiratory: clear to auscultation, normal air movement Cardiovascular: nl pulses, regular rate and rhythm Gastrointestinal: non-tender, soft Musculoskeletal: nl extremities to inspection Extremities: normal pulses, other (no edema, clubbing or cyanosis ) 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: 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 II-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 intact, nl mental status, nl speech, other ( generalised weakness improved ) Results Result Diagram: 02/20/1641902/20/16 042 Results 24 hrs Laboratory Tests Test 02/19/16 11:57 02/19/16 18:18 02/19/16 20:36 02/20/16 04:20 Bedside Glucose 122 129 129 Alanine Aminotransferase (ALT/SGPT) 19 Albumin 2.2 L Albumin/Globulin Ratio 0.62 Alkaline Phosphatase 90 Anion Gap 15 Aspartate Amino Transf (AST/SGOT) 12 L Basophils # 0.0 Basophils % 0.2 Blood Morphology Comment Blood Urea Nitrogen 7 Calcium Level 8.7 Carbon Dioxide Level 23 Chloride Level 101 Creatinine 0.54 Direct Bilirubin 0.00 Eosinophils # 0.1 Eosinophils % 0.9 Globulin 3.50 H Glucose Level 112 Hematocrit 27.0 L Hemoglobin 9.1 L Indirect Bilirubin 0.7 Lymphocytes # 1.4 Lymphocytes % 12.5 L Magnesium Level 1.7 Mean Corpuscular Hemoglobin 29.6 Mean Corpuscular Hemoglobin Concent 33.7 Mean Corpuscular Volume 87.8 Mean Platelet Volume 6.5 L Monocytes # 0.7 Monocytes % 6.2 Neutrophils # 8.7 H Neutrophils % 80.2 H Nucleated Red Blood Cells # 0.0 Nucleated Red Blood Cells % 0.0 Phosphorus Level 2.5 Platelet Count 147 Potassium Level 4.1 Red Blood Count 3.08 L Red Cell Distribution Width 16.3 H Sodium Level 135 Total Bilirubin 0.7 Total Protein 5.7 L White Blood Count 10.9 #H Test 02/20/16 08:49 Bedside Glucose 108 Medications Medications Current Medications Folic Acid (Folic Acid) 5 mg DAILY PO Last administered on 02/20/16 08:51; Admin Dose 5 MG; Start 02/14/16 at 09:00 Meclizine HCl (Antivert) 25 mg Q8H PRN PO DIZZINESS Last administered on 14:11; Admin Dose 25 MG; Start 02/13/16 at 17:00 Morphine Sulfate (Ms Contin (Er)) 15 mg Q12 PO Last administered on 02/20/16 08:51; Admin Dose 15 MG; Start 02/13/16 at 21:00 Oxycodone HCl (Roxicodone) 10 mg Q4H PRN PO PAIN Last administered on 05:43; Admin Dose 10 MG; Start 02/13/16 at 17:00 Trazodone HCl (Desyrel) 25 mg QHS PRN PO INSOMNIA; Start 02/13/16 at 17:00 Lactobacillus Acidoph/Bulgaricus (Floranex) 1 tab DAILY PO Last administered on 02/20/16 08:51; Admin Dose 1 TAB; Start 02/14/16 at 09:00 Ondansetron HCl (Zofran Inj) 4 mg Q6H PRN IV NAUSEA AND/OR VOMITING Last administered on 02/18/16 13:05; Admin Dose 4 MG; Start 02/13/16 at 17:00 Acetaminophen (Tylenol Tab) 650 mg Q6H PRN PO PAIN LEVEL 1-3 OR FEVER Last administered on 02/15/16 02:29; Admin Dose 650 MG; Start 02/13/16 at 17:00 Morphine Sulfate (morphine) 2 mg Q4H PRN IV PAIN LEVEL 7-10 Last administered on 02/19/16 13:00; Admin Dose 2 MG; Start 02/13/16 at 17:00 Docusate Sodium (Colace) 100 mg Q12H PRN PO CONSTIPATION; Start 02/13/16 at 17: 00 Magnesium Hydroxide (Milk Of Mag) 30 ml DAILY PRN PO CONSTIPATION; Start at 17:00 Bisacodyl (Dulcolax Supp) 10 mg DAILY PRN [place] CONSTIPATION; Start 02/13/16 at 17: 00 Miscellaneous Information 1 ea NOTE XX ; Start 02/13/16 at 17:30 Glucose (Glutose) 15 gm Q15M PRN PO DECREASED GLUCOSE; Start 02/13/16 at 17:30 Glucose (Glutose) 22.5 gm Q15M PRN PO DECREASED GLUCOSE; Start 02/13/16 at 17:30 Dextrose (D50w Syringe) 25 ml Q15M PRN IV DECREASED GLUCOSE; Start 02/13/16 at 17:30 Dextrose (D50w Syringe) 50 ml Q15M PRN IV DECREASED GLUCOSE; Start 02/13/16 at 17:30 Glucagon (Glucagen) 1 mg Q15M PRN IM DECREASED GLUCOSE; Start 02/13/16 at 17:30 Glucose (Glutose) 15 gm Q15M PRN BUCCAL DECREASED GLUCOSE; Start 02/13/16 at 17: 30 Hydralazine HCl (Apresoline) 10 mg Q8H PRN IV ELEVATED BLOOD PRESSURE Last administered on 02/18/16 08:47; Admin Dose 10 MG; Start 02/17/16 at 16:00 Mesalamine (Rowasa) 4 gm HS [place] Last administered on 02/19/16 21:24; Admin Dose 4 GM; Start 02/17/16 at 21:00 Diagnostic Test (Pha) (Accucheck) 1 ea 02 XX ; Start 02/18/16 at 02:00 Atenolol (Tenormin) 25 mg DAILY PO Last administered on 02/20/16 08:51; Admin Dose 25 MG; Start 02/18/16 at 09:30 Metoclopramide HCl (Reglan) 10 mg Q6H IV Last administered on 02/20/16 05:37; Admin Dose 10 MG; Start 02/18/16 at 18:00 Pantoprazole (Protonix Tab) 40 mg BID@06,18 PO Last administered on 02/20/16 05:37; Admin Dose 40 MG; Start 02/19/16 at 18:00 JOSE TORIBIO Feb 20, 2016 09:10
--- NOTE | 2016-02-20 09:28 | CONS ---
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 Mucinous tubular and spindle cell renal cell carcinoma is a rare, recently described variant of renal cell carcinoma ranging from low to high grade that includes sarcomatoid differentiation. "For metastatic diseases, there are no reports of systemic treatment guideline published to date. Most recently one case of metastatic MTSRCC showing a response to sunitinib has been documented" ( Alton M, Kurt XL, Duncan XD. Mucinous tubular and spindle cell renal cell carcinoma : a review of clinicopathologic aspects. Diagn Pathol. 2015 Oct 17;10:168. doi: 10.1186/[id number]). - Path report from [facility] requested to confirm histologic diagnosis and grade, etc. - Gastric antrum/body bx showed no evidence of malignancy, negative for H. pylori - 02/17/16 colonoscopy showed 2 cm rectal ulcer, and 8 mm sigmoid polyp with large internal hemorrhoids, path demonstrated only tubular adenoma and no high grade dysplasia of sigmoid colon polymp, and early hyperplastic polyp with no ulcer identified of rectal ulcer biopsy - Patient to follow up with Dr. Bejarano as an outpatient. Will defer to Dr. Bejarano as to whether to restart, may consider restarting sutent at 37.5 mg instead of 50 mg. -Will continue to follow Problems: Consultation Date/Type/Reason Admit Date/Time Feb 13, 2016 at 16:04 Initial Consult Date 02/16/16 Type of Consultation: Hematology/Oncology Referring Provider: JOSE TORIBIO 24 HR Interval Summary Free Text/Dictation No evidence of active bleeding. Hgb stable. Pending SNF placement. Exam/Review of Systems Vital Signs Vitals Vital Signs Date Time Temp Pulse Resp B/P Pulse Ox O2 Delivery O2 Flow Rate FiO2 02/20/16 08:09 97.9 101 18 148/72 96 02/20/16 00:01 Room Air 02/19/16 20:00 2.0 Intake and Output 02/19/16 02/19/16 02/20/16 15:00 23:00 07:00 Intake Total 970 ml 240 ml Balance 970 ml 240 ml Exam Constitutional: alert, oriented, other (weak) Psych: no complaints Head: atraumatic, normocephalic Eyes: nl conjunctiva ENMT: nl external ears & nose Neck: non-tender, supple Respiratory: clear to auscultation, normal air movement Cardiovascular: nl pulses, regular rate and rhythm Gastrointestinal: soft Musculoskeletal: nl extremities to inspection, nl gait and stance Results Result Diagram: 02/20/16 04202/20/16 0420 Results 24 hrs Laboratory Tests Test 02/19/16 11:57 02/19/16 18:18 02/19/16 20:36 02/20/16 04:20 Bedside Glucose 122 129 129 Alanine Aminotransferase (ALT/SGPT) 19 Albumin 2.2 L Albumin/Globulin Ratio 0.62 Alkaline Phosphatase 90 Anion Gap 15 Aspartate Amino Transf (AST/SGOT) 12 L Basophils # 0.0 Basophils % 0.2 Blood Morphology Comment Blood Urea Nitrogen 7 Calcium Level 8.7 Carbon Dioxide Level 23 Chloride Level 101 Creatinine 0.54 Direct Bilirubin 0.00 Eosinophils # 0.1 Eosinophils % 0.9 Globulin 3.50 H Glucose Level 112 Hematocrit 27.0 L Hemoglobin 9.1 L Indirect Bilirubin 0.7 Lymphocytes # 1.4 Lymphocytes % 12.5 L Magnesium Level 1.7 Mean Corpuscular Hemoglobin 29.6 Mean Corpuscular Hemoglobin Concent 33.7 Mean Corpuscular Volume 87.8 Mean Platelet Volume 6.5 L Monocytes # 0.7 Monocytes % 6.2 Neutrophils # 8.7 H Neutrophils % 80.2 H Nucleated Red Blood Cells # 0.0 Nucleated Red Blood Cells % 0.0 Phosphorus Level 2.5 Platelet Count 147 Potassium Level 4.1 Red Blood Count 3.08 L Red Cell Distribution Width 16.3 H Sodium Level 135 Total Bilirubin 0.7 Total Protein 5.7 L White Blood Count 10.9 #H Test 02/20/16 08:49 Bedside Glucose 108 Medications Medications Current Medications Folic Acid (Folic Acid) 5 mg DAILY PO Last administered on 02/20/16 08:51; Admin Dose 5 MG; Start 02/14/16 at 09:00 Meclizine HCl (Antivert) 25 mg Q8H PRN PO DIZZINESS Last administered on 14:11; Admin Dose 25 MG; Start 02/13/16 at 17:00 Morphine Sulfate (Ms Contin (Er)) 15 mg Q12 PO Last administered on 02/20/16 08:51; Admin Dose 15 MG; Start 02/13/16 at 21:00 Oxycodone HCl (Roxicodone) 10 mg Q4H PRN PO PAIN Last administered on 05:43; Admin Dose 10 MG; Start 02/13/16 at 17:00 Trazodone HCl (Desyrel) 25 mg QHS PRN PO INSOMNIA; Start 02/13/16 at 17:00 Lactobacillus Acidoph/Bulgaricus (Floranex) 1 tab DAILY PO Last administered on 02/20/16 08:51; Admin Dose 1 TAB; Start 02/14/16 at 09:00 Ondansetron HCl (Zofran Inj) 4 mg Q6H PRN IV NAUSEA AND/OR VOMITING Last administered on 02/18/16 13:05; Admin Dose 4 MG; Start 02/13/16 at 17:00 Acetaminophen (Tylenol Tab) 650 mg Q6H PRN PO PAIN LEVEL 1-3 OR FEVER Last administered on 02/15/16 02:29; Admin Dose 650 MG; Start 02/13/16 at 17:00 Morphine Sulfate (morphine) 2 mg Q4H PRN IV PAIN LEVEL 7-10 Last administered on 02/19/16 13:00; Admin Dose 2 MG; Start 02/13/16 at 17:00 Docusate Sodium (Colace) 100 mg Q12H PRN PO CONSTIPATION; Start 02/13/16 at 17: 00 Magnesium Hydroxide (Milk Of Mag) 30 ml DAILY PRN PO CONSTIPATION; Start at 17:00 Bisacodyl (Dulcolax Supp) 10 mg DAILY PRN [place] CONSTIPATION; Start 02/13/16 at 17: 00 Miscellaneous Information 1 ea NOTE XX ; Start 02/13/16 at 17:30 Glucose (Glutose) 15 gm Q15M PRN PO DECREASED GLUCOSE; Start 02/13/16 at 17:30 Glucose (Glutose) 22.5 gm Q15M PRN PO DECREASED GLUCOSE; Start 02/13/16 at 17:30 Dextrose (D50w Syringe) 25 ml Q15M PRN IV DECREASED GLUCOSE; Start 02/13/16 at 17:30 Dextrose (D50w Syringe) 50 ml Q15M PRN IV DECREASED GLUCOSE; Start 02/13/16 at 17:30 Glucagon (Glucagen) 1 mg Q15M PRN IM DECREASED GLUCOSE; Start 02/13/16 at 17:30 Glucose (Glutose) 15 gm Q15M PRN BUCCAL DECREASED GLUCOSE; Start 02/13/16 at 17: 30 Hydralazine HCl (Apresoline) 10 mg Q8H PRN IV ELEVATED BLOOD PRESSURE Last administered on 02/18/16 08:47; Admin Dose 10 MG; Start 02/17/16 at 16:00 Mesalamine (Rowasa) 4 gm HS [place] Last administered on 02/19/16 21:24; Admin Dose 4 GM; Start 02/17/16 at 21:00 Diagnostic Test (Pha) (Accucheck) 1 ea 02 XX ; Start 02/18/16 at 02:00 Atenolol (Tenormin) 25 mg DAILY PO Last administered on 02/20/16 08:51; Admin Dose 25 MG; Start 02/18/16 at 09:30 Metoclopramide HCl (Reglan) 10 mg Q6H IV Last administered on 02/20/16 05:37; Admin Dose 10 MG; Start 02/18/16 at 18:00 Pantoprazole 40 mg 40 mg BID@06,18 PO Last administered on 02/20/16 05:37; Admin Dose 40 MG; Start 02/19/16 at 18:00 Magnesium Sulfate (Magnesium Sulfate 2 Gm/50 ml) 50 ml @ 25 mls/hr ONCE ONCE IVPB ; Start 02/20/16 at 09:30; Stop 02/20/16 at 11:29; Status UNV TOROSENDA MD Feb 20, 2016 09:28 TOROSENDA MD Feb 20, 2016 09:28
[2016-02-20] MEDS ORDERED: MAGNESIUM SULFATE 2 GM/50 ML 50 ML IVPB ONE (11:00)
[2016-02-20] MEDS: LEVOFLOXACIN 500 MG TAB PO SCH (12:28)
[2016-02-20] MEDS: ONDANSETRON 4 MG INJ IV PRN (19:02)
[2016-02-20 20:32] VITALS: BP 142/72; RESP 20
[2016-02-20] MEDS: MESALAMINE 4 GM/60 ML ENEMA PR SCH ×2 (21:00→22:00)
[2016-02-21] MEDS: ACCUCHECK XX SCH (02:00)
[2016-02-21] MEDS: MESALAMINE 4 GM/60 ML ENEMA PR SCH (04:43)
[2016-02-21] MEDS: METOCLOPRAMIDE 10 MG INJ IV SCH ×2 (05:38→12:21)
[2016-02-21] MEDS: PANTOPRAZOLE (EC) 40 MG TAB PO SCH (05:38)
[2016-02-21] MEDS: LEVOFLOXACIN 500 MG TAB PO SCH (06:54)
[2016-02-21] MEDS: INSULIN ASPART [NOVOLOG] 3 ML PEN SC SCH ×2 (07:50→11:40)
[2016-02-21 08:14] VITALS: BP 130/64; RESP 18
[2016-02-21 08:18] VITALS: BP 148/72; RESP 18
[2016-02-21] MEDS: FOLIC ACID 1 MG TAB PO SCH (08:48)
[2016-02-21] MEDS: ATENOLOL 25 MG TAB PO SCH (08:49)
[2016-02-21] MEDS: LACTOBACILLUS CHEW TAB PO SCH (08:49)
[2016-02-21] MEDS: morphine (ER) 15 MG TAB PO SCH (08:49)
[2016-02-21] MEDS: ONDANSETRON 4 MG INJ IV PRN (09:05)
--- NOTE | 2016-02-21 11:37 | PN ---
Date/Time of Note Date/Time of Note DATE: 02/21/16 TIME: 11:29 Assessment/Plan VTE Prophylaxis VTE Prophylaxis Intervention: SCD's Lines/Catheters IV [facility]ter Type [facility]from [facility]): [facility] Urinary Cath still in place: No Assessment/Plan Assessment/Plan 61-year-old, unfortunate female with: 1. Acute severe symptomatic anemia 2ry to lower GIB, s/p 4 units pRBC and 2 units FFP S/p colonoscopy with rectal ulceration, bx benign so far Large hemorrhoids Hb stable. 2. Metastatic spindle cell carcinoma, with metastasis to Lung, bones and large left renal and adrenal masses Full code Resume oral chemotherapeutic agent after follow up with Dr Cadena, per discussion with Oncology, this is a rare diagnosis with scarce evidence based treatment regimen, patient will need to discuss her options with Dr Cadena Appreciate recommendations from Dr Godoy 3. Hypertension. On Atenolol, continue Hydralazine prn. Bp controlled 4. Diabetes mellitus: Sliding scale insulin. 5. Lethargic, generalized weakness, most likely related to episode of acute bleeding, anemia and metastatic carcinoma. Much improved and doing PT Continue to monitor h/h outpatient. 6. Urinary tract infection diagnosed at [facility]. 4 more days to complete Levaquin course. 7. Coagulopathy, most likely related to metastatic disease. Prophylaxis. Protonix for gastrointestinal prophylaxis. SCDs to lower extremity for deep vein thrombosis prophylaxis. DISPOSITION: Awaiting SNF bed and follow up with Dr Cadena within 1 week. Subjective 24 Hr Interval Summary Free Text/Dictation Patient remains stable Some nausea occasionally but tolerating po and fluids PT ongoing Awaiting SNF bed for discharge Exam/Review of Systems Vital Signs Vitals Vital Signs Date Time Temp Pulse Resp B/P Pulse Ox O2 Delivery O2 Flow Rate FiO2 02/21/16 08:18 97.9 68 18 148/72 96 02/20/16 00:01 Room Air 02/19/16 20:00 2.0 Intake and Output 02/20/16 02/20/16 02/21/16 15:00 23:00 07:00 Intake Total 50 ml 1040 ml 250 ml Balance 50 ml 1040 ml 250 ml Exam Constitutional: alert, frail, obese, oriented Respiratory: clear to auscultation, normal air movement Cardiovascular: nl pulses, regular rate and rhythm Gastrointestinal: non-tender, soft Musculoskeletal: nl extremities to inspection Extremities: normal pulses, other (no edema, clubbing or cyanosis) 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: [employer] II-XII intact, nl mental status, nl speech, other ( generalised weakness ) Results Result Diagram: 02/20/1641902/20/16419 Results 24 hrs Laboratory Tests Test 02/20/16 12:30 02/20/16 17:40 02/20/16 20:05 02/21/16 07:46 Bedside Glucose 120 121 120 118 Medications Medications Current Medications Folic Acid (Folic Acid) 5 mg DAILY PO Last administered on 02/21/16 08:48; Admin Dose 5 MG; Start 02/14/16 at 09:00 Meclizine HCl (Antivert) 25 mg Q8H PRN PO DIZZINESS Last administered on 14:11; Admin Dose 25 MG; Start 02/13/16 at 17:00 Morphine Sulfate (Ms Contin (Er)) 15 mg Q12 PO Last administered on 02/21/16 08:49; Admin Dose 15 MG; Start 02/13/16 at 21:00 Oxycodone HCl (Roxicodone) 10 mg Q4H PRN PO PAIN Last administered on 19:32; Admin Dose 10 MG; Start 02/13/16 at 17:00 Trazodone HCl (Desyrel) 25 mg QHS PRN PO INSOMNIA Last administered on 23:45; Admin Dose 25 MG; Start 02/13/16 at 17:00 Lactobacillus Acidoph/Bulgaricus (Floranex) 1 tab DAILY PO Last administered on 02/21/16 08:49; Admin Dose 1 TAB; Start 02/14/16 at 09:00 Ondansetron HCl (Zofran Inj) 4 mg Q6H PRN IV NAUSEA AND/OR VOMITING Last administered on 02/21/16 09:05; Admin Dose 4 MG; Start 02/13/16 at 17:00 Acetaminophen (Tylenol Tab) 650 mg Q6H PRN PO PAIN LEVEL 1-3 OR FEVER Last administered on 02/15/16 02:29; Admin Dose 650 MG; Start 02/13/16 at 17:00 Morphine Sulfate (morphine) 2 mg Q4H PRN IV PAIN LEVEL 7-10 Last administered on 02/19/16 13:00; Admin Dose 2 MG; Start 02/13/16 at 17:00 Docusate Sodium (Colace) 100 mg Q12H PRN PO CONSTIPATION; Start 02/13/16 at 17: 00 Magnesium Hydroxide (Milk Of Mag) 30 ml DAILY PRN PO CONSTIPATION; Start at 17:00 Bisacodyl (Dulcolax Supp) 10 mg DAILY PRN [place] CONSTIPATION; Start 02/13/16 at 17: 00 Miscellaneous Information 1 ea NOTE XX ; Start 02/13/16 at 17:30 Glucose (Glutose) 15 gm Q15M PRN PO DECREASED GLUCOSE; Start 02/13/16 at 17:30 Glucose (Glutose) 22.5 gm Q15M PRN PO DECREASED GLUCOSE; Start 02/13/16 at 17:30 Dextrose (D50w Syringe) 25 ml Q15M PRN IV DECREASED GLUCOSE; Start 02/13/16 at 17:30 Dextrose (D50w Syringe) 50 ml Q15M PRN IV DECREASED GLUCOSE; Start 02/13/16 at 17:30 Glucagon (Glucagen) 1 mg Q15M PRN IM DECREASED GLUCOSE; Start 02/13/16 at 17:30 Glucose (Glutose) 15 gm Q15M PRN BUCCAL DECREASED GLUCOSE; Start 02/13/16 at 17: 30 Hydralazine HCl (Apresoline) 10 mg Q8H PRN IV ELEVATED BLOOD PRESSURE Last administered on 02/18/16 08:47; Admin Dose 10 MG; Start 02/17/16 at 16:00 Mesalamine (Rowasa) 4 gm HS SC Last administered on 02/20/16 22:00; Admin Dose 4 GM; Start 02/17/16 at 21:00 Diagnostic Test (Pha) (Accucheck) 1 ea 02 XX ; Start 02/18/16 at 02:00 Atenolol (Tenormin) 25 mg DAILY PO Last administered on 02/21/16 08:49; Admin Dose 25 MG; Start 02/18/16 at 09:30 Metoclopramide HCl (Reglan) 10 mg Q6H IV Last administered on 02/21/16 05:38; Admin Dose 10 MG; Start 02/18/16 at 18:00 Pantoprazole (Protonix Tab) 40 mg BID@06,18 PO Last administered on 02/21/16 05:38; Admin Dose 40 MG; Start 02/19/16 at 18:00 JOSE TORIBIO Feb 21, 2016 11:37
--- NOTE | 2016-02-21 12:18 | CONS ---
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 Mucinous tubular and spindle cell renal cell carcinoma is a rare, recently described variant of renal cell carcinoma ranging from low to high grade that includes sarcomatoid differentiation. "For metastatic diseases, there are no reports of systemic treatment guideline published to date. Most recently one case of metastatic MTSRCC showing a response to sunitinib has been documented" ( Alton M, Kurt XL, Duncan XD. Mucinous tubular and spindle cell renal cell carcinoma : a review of clinicopathologic aspects. Diagn Pathol. 2015 Oct 17;10:168. doi: 10.1186/[id number]). - Path report from [facility] requested to confirm histologic diagnosis and grade, etc. - Gastric antrum/body bx showed no evidence of malignancy, negative for H. pylori - 02/17/16 colonoscopy showed 2 cm rectal ulcer, and 8 mm sigmoid polyp with large internal hemorrhoids, path demonstrated only tubular adenoma and no high grade dysplasia of sigmoid colon polymp, and early hyperplastic polyp with no ulcer identified of rectal ulcer biopsy - Patient to follow up with Dr. Bejarano as an outpatient. Will defer to Dr. Bejarano as to when and whether to start. Discussed with Dr. Bejarano, given renal cell carcinoma is spindle type, low dose sutent may not benefit the patient. -Will continue to follow Problems: Consultation Date/Type/Reason Admit Date/Time Feb 13, 2016 at 16:04 Initial Consult Date 02/16/16 Type of Consultation: Hematology/Oncology Referring Provider: JOSE TORIBIO 24 HR Interval Summary Free Text/Dictation Patient had episode of bilious emesis overnight. No bleeding. Awaiting SNF placement. Exam/Review of Systems Vital Signs Vitals Vital Signs Date Time Temp Pulse Resp B/P Pulse Ox O2 Delivery O2 Flow Rate FiO2 02/21/16 08:18 97.9 68 18 148/72 96 02/20/16 00:01 Room Air 02/19/16 20:00 2.0 Intake and Output 02/20/16 02/20/16 02/21/16 15:00 23:00 07:00 Intake Total 50 ml 1040 ml 250 ml Balance 50 ml 1040 ml 250 ml Exam Constitutional: alert, oriented, other (weak) Psych: no complaints Head: atraumatic, normocephalic Eyes: nl conjunctiva ENMT: nl external ears & nose Neck: non-tender, supple Respiratory: clear to auscultation, normal air movement Cardiovascular: nl pulses, regular rate and rhythm Gastrointestinal: soft Musculoskeletal: nl extremities to inspection, nl gait and stance Results Result Diagram: 02/20/1641902/20/16419 Results 24 hrs Laboratory Tests Test 02/20/16 12:30 02/20/16 17:40 02/20/16 20:05 02/21/16 07:46 Bedside Glucose 120 121 120 118 Test 02/21/16 11:40 Bedside Glucose 108 Medications Medications Current Medications Folic Acid (Folic Acid) 5 mg DAILY PO Last administered on 02/21/16 08:48; Admin Dose 5 MG; Start 02/14/16 at 09:00 Meclizine HCl (Antivert) 25 mg Q8H PRN PO DIZZINESS Last administered on 14:11; Admin Dose 25 MG; Start 02/13/16 at 17:00 Morphine Sulfate (Ms Contin (Er)) 15 mg Q12 PO Last administered on 02/21/16 08:49; Admin Dose 15 MG; Start 02/13/16 at 21:00 Oxycodone HCl (Roxicodone) 10 mg Q4H PRN PO PAIN Last administered on 19:32; Admin Dose 10 MG; Start 02/13/16 at 17:00 Trazodone HCl (Desyrel) 25 mg QHS PRN PO INSOMNIA Last administered on 23:45; Admin Dose 25 MG; Start 02/13/16 at 17:00 Lactobacillus Acidoph/Bulgaricus (Floranex) 1 tab DAILY PO Last administered on 02/21/16 08:49; Admin Dose 1 TAB; Start 02/14/16 at 09:00 Ondansetron HCl (Zofran Inj) 4 mg Q6H PRN IV NAUSEA AND/OR VOMITING Last administered on 02/21/16 09:05; Admin Dose 4 MG; Start 02/13/16 at 17:00 Acetaminophen (Tylenol Tab) 650 mg Q6H PRN PO PAIN LEVEL 1-3 OR FEVER Last administered on 02/15/16 02:29; Admin Dose 650 MG; Start 02/13/16 at 17:00 Morphine Sulfate (morphine) 2 mg Q4H PRN IV PAIN LEVEL 7-10 Last administered on 02/19/16 13:00; Admin Dose 2 MG; Start 02/13/16 at 17:00 Docusate Sodium (Colace) 100 mg Q12H PRN PO CONSTIPATION; Start 02/13/16 at 17: 00 Magnesium Hydroxide (Milk Of Mag) 30 ml DAILY PRN PO CONSTIPATION; Start at 17:00 Bisacodyl (Dulcolax Supp) 10 mg DAILY PRN [place] CONSTIPATION; Start 02/13/16 at 17: 00 Miscellaneous Information 1 ea NOTE XX ; Start 02/13/16 at 17:30 Glucose (Glutose) 15 gm Q15M PRN PO DECREASED GLUCOSE; Start 02/13/16 at 17:30 Glucose (Glutose) 22.5 gm Q15M PRN PO DECREASED GLUCOSE; Start 02/13/16 at 17:30 Dextrose (D50w Syringe) 25 ml Q15M PRN IV DECREASED GLUCOSE; Start 02/13/16 at 17:30 Dextrose (D50w Syringe) 50 ml Q15M PRN IV DECREASED GLUCOSE; Start 02/13/16 at 17:30 Glucagon (Glucagen) 1 mg Q15M PRN IM DECREASED GLUCOSE; Start 02/13/16 at 17:30 Glucose (Glutose) 15 gm Q15M PRN BUCCAL DECREASED GLUCOSE; Start 02/13/16 at 17: 30 Hydralazine HCl (Apresoline) 10 mg Q8H PRN IV ELEVATED BLOOD PRESSURE Last administered on 02/18/16 08:47; Admin Dose 10 MG; Start 02/17/16 at 16:00 Mesalamine (Rowasa) 4 gm HS [place] Last administered on 02/20/16 22:00; Admin Dose 4 GM; Start 02/17/16 at 21:00 Diagnostic Test (Pha) (Accucheck) 1 ea 02 XX ; Start 02/18/16 at 02:00 Atenolol (Tenormin) 25 mg DAILY PO Last administered on 02/21/16 08:49; Admin Dose 25 MG; Start 02/18/16 at 09:30 Metoclopramide HCl (Reglan) 10 mg Q6H IV Last administered on 02/21/16 05:38; Admin Dose 10 MG; Start 02/18/16 at 18:00 Pantoprazole (Protonix Tab) 40 mg BID@06,18 PO Last administered on 02/21/16 05:38; Admin Dose 40 MG; Start 02/19/16 at 18:00 ROSENDA MARLOW MD Feb 21, 2016 12:17
[2016-02-21] MEDS: oxyCODONE 5 MG TAB PO PRN (12:21)
== END 2016-02-21 17:45 | DRG 378 ==
LOC: E/R 12:16 → MS4 16:04 → MS1 02-20 01:17
PROVIDERS: ADMIT Internal Medicine; ATTEND Internal Medicine
PROC: 30233N1 Transfusion of Nonautologous Red Blood Cells into Peripheral Vein, Percutaneous Approach (ICD-10-PCS; 2016-02-13)
PROC: 30233K1 Transfusion of Nonautologous Frozen Plasma into Peripheral Vein, Percutaneous Approach (ICD-10-PCS; 2016-02-14)
PROC: 0DB68ZX Excision of Stomach, Via Natural or Artificial Opening Endoscopic, Diagnostic (ICD-10-PCS; principal; 2016-02-14 19:30)
PROC: 0DJD8ZZ Inspection of Lower Intestinal Tract, Via Natural or Artificial Opening Endoscopic (ICD-10-PCS; 2016-02-14 19:30)
PROC: 0DBN8ZX Excision of Sigmoid Colon, Via Natural or Artificial Opening Endoscopic, Diagnostic (ICD-10-PCS; 2016-02-17)
PROC: 0DBP8ZX Excision of Rectum, Via Natural or Artificial Opening Endoscopic, Diagnostic (ICD-10-PCS; 2016-02-17)
DX: K62.5 Hemorrhage of anus and rectum (principal); D62 Acute posthemorrhagic anemia; D68.8 Other specified coagulation defects; C78.00 Secondary malignant neoplasm of unspecified lung; C79.51 Secondary malignant neoplasm of bone; C79.70 Secondary malignant neoplasm of unspecified adrenal gland; K62.6 Ulcer of anus and rectum; N39.0 Urinary tract infection, site not specified; C79.89 Secondary malignant neoplasm of other specified sites; C64.2 Malignant neoplasm of left kidney, except renal pelvis; R10.11 Right upper quadrant pain; R10.32 Left lower quadrant pain; E11.8 Type 2 diabetes mellitus with unspecified complications; Z79.4 Long term (current) use of insulin; I10 Essential (primary) hypertension; R59.1 Generalized enlarged lymph nodes; K20.9 Esophagitis, unspecified; K29.70 Gastritis, unspecified, without bleeding; K64.8 Other hemorrhoids; D12.5 Benign neoplasm of sigmoid colon
CPT/HCPCS: 36430; 74177; 76700; 80048; 80053; 82270; 82378; 82962; 83615; 83735; 84100; 84484; 85014; 85018; 85025; 85610; 85730; 86704; 86709; 86803; 86850; 86900; 86901; 86920; 87081; 87340; 88305; 88312; 93005; 97162; 97530; J1940; C9113; J0360; J1815; J1956; J2270; J2405; J2765; J3475; J3480; J7030; J7040; J7050; P9016; P9059; Q9967

== ENCOUNTER 2016-03-10 12:42 | Inpatient (IN) | payer OTHER ==
[~2016-03-10] VITALS: Ht 157.5 cm; Wt 81.0 kg
[2016-03-10 12:42] VITALS: Ht 157.5 cm; Wt 81.0 kg
[~2016-03-10 12:42] MED LIST: ACET-2047 PO; ATEN-51 PO; FOLI-49 PO; LACT1CAP47 PO; LEVO500T72 PO; MECL-77 PO; MORP15TA92 PO; ONDA4TAB8 PO; OXYC5CAP17 PO
[2016-03-10] MEDS ORDERED: ONDANSETRON 4 MG INJ IV STA (12:44)
[2016-03-10] MEDS ORDERED: SOD CHLORIDE 0.9% 1,000 ML IV STA (12:44)
[2016-03-10] MEDS ORDERED: morphine 4 MG/ML VIAL IV STA (12:44)
[2016-03-10 13:41] LABS: BASOPHILS % 0.1 % (0.0-2.0); EOSINOPHILS # 0.1 10^3/ul (0.0-0.5); EOSINOPHILS % 0.9 % (0.0-7.0); HEMATOCRIT 22.2 % (37.0-47.0); HEMOGLOBIN 7.3 g/dl (12.0-16.0); LYMPHOCYTES % 11.3 % (15.0-51.0); MEAN CORPUSCULAR VOLUME 84.8 fl (82.0-101.0); MEAN PLATELET VOLUME 6.5 fl (7.4-10.4); MONOCYTE # 0.7 10^3/ul (0.3-0.9); MONOCYTES % 7.7 % (0.0-11.0); NEUTROPHIL # 7.2 10^3/ul (1.6-7.5); PLATELET COUNT 249 10^3/UL (140-440); RED BLOOD COUNT 2.62 10^6/ul (4.20-5.40); RED CELL DISTRIBUTION WIDTH 16.1 % (11.5-14.5)
[2016-03-10 13:46] LABS: ALBUMIN 2.9 g/dl (3.3-4.9)
[2016-03-10 13:47] LABS: CHLORIDE 91 mmol/L (97-110); POTASSIUM 3.9 mmol/L (3.5-5.1); SODIUM 133 mmol/L (135-144)
[2016-03-10 13:49] LABS: ANION GAP 15 (8-16); CARBON DIOXIDE 31 mmol/L (21-31); CREATININE 0.51 mg/dl (0.44-1.00)
[2016-03-10 13:50] LABS: ALANINE AMINOTRANSFERASE 20 IU/L (13-69); ALBUMIN/GLOBULIN RATIO 0.76; ALKALINE PHOSPHATASE 96 IU/L (42-121); ASPARTATE AMINO TRANSFERASE 12 IU/L (15-46); BILIRUBIN,INDIRECT 0.6 mg/dl (0-1.1); BILIRUBIN,TOTAL 0.6 mg/dl (0.2-1.3); BLOOD UREA NITROGEN 13 mg/dl (7-20); GLUCOSE 131 mg/dl (70-220); TOTAL PROTEIN 6.7 g/dl (6.1-8.1)
[2016-03-10 13:54] LABS: AMYLASE < 30 U/L (11-123)
[2016-03-10 13:55] LABS: CONDITION 1; LH ANALYZER COMMENTS 1
[2016-03-10] MEDS ORDERED: ACETAMINOPHEN 325 MG TAB PO PRN ×2 (14:00→15:00)
[2016-03-10] MEDS ORDERED: ONDANSETRON 4 MG INJ IV PRN (14:00)
[2016-03-10 14:01] LABS: INR 1.14; PROTIME 14.6 Sec (12.2-14.2); PT RATIO 1.1
[2016-03-10 14:02] LABS: PARTIAL THROMBOPLASTIN TIME 31.5 Sec (25.0-35.0); TROPONIN-I 0.016 ng/ml (0.00-0.12)
[2016-03-10] MEDS ORDERED: SOD CHLORIDE 0.9% 100 ML ONE (14:32)
[2016-03-10] MEDS ORDERED: IOHEXOL 300MG/ML 150 ML BTL ONE (14:32)
[2016-03-10] MEDS: SOD CHLORIDE 0.9% 1,000 ML IV SCH ×2 (14:41→22:04)
[2016-03-10] MEDS ORDERED: MAGNESIUM HYDROXIDE 30ML CUP PO PRN (15:00)
[2016-03-10] MEDS ORDERED: NACL 0.9% 3 ML SYG IV SCH (15:00)
[2016-03-10] MEDS ORDERED: DOCUSATE SODIUM 100 MG CAP PO PRN (15:00)
[2016-03-10] MEDS ORDERED: BISACODYL 10 MG SUPP PR PRN (15:00)
--- NOTE | 2016-03-10 15:34 | RADRPT ---
PROCEDURE: CT Abdomen and Pelvis with contrast. CLINICAL INDICATION: Abdominal pain with nausea and vomiting. History of renal cancer. TECHNIQUE: CT scan of the abdomen and pelvis with contrast was performed on a multi-detector high- resolution CT scanner. The patient was scanned following the uncomplicated intravenous administrati on of 90 cc of Omnipaque 300. Coronal and sagittal reformatted images were obtained from the axial source images. Images were reviewed on a high-resolution PACS workstation. The total exam CTDI equal s 16.31 mGy and the total exam DLP equals 981.45 mGy-cm. One or more of the following dose reduction techniques were used: Automated exposure control. Adjustment of the mA and/or kV according to patient size. Use of iterative reconstruction technique. COMPARISON: CT abdomen and pelvis 02/13/2016 FINDINGS: CT abdomen: The lung bases are remarkable for increasing small left pleural effusion with adjacent atelectasis. Multiple small pulmonary nodules are seen again identified in bilateral lower lobes. There has been significant progression of the lytic expansile lesion involving the left posterolateral 8th rib. Th e heart size is normal, without pericardial thickening or effusion. The liver is normal in size and density without focal mass or intrahepatic biliary dilatation. The spleen is normal in size and homogeneous in density. There is small amount of perisplenic fluid. T he stomach is partially collapsed, but is grossly unremarkable. The pancreas as visualized is jayde l. The gallbladder and biliary tree are unremarkable and there is no evidence for biliary dilatatio n. The adrenal glands are symmetric and normal. Redemonstrated is a large heterogeneously enhancing infiltrative mass arising from the interpolar re gion of the left kidney measuring 13.6 x 8.2 cm on sagittal reformat images. There is tumor extensio n throughout the left renal vein with no extension into the IVC. There is extension of the renal ma ss into the left retroperitoneal space. There are several more homogeneously enhancing implants in the left paracolic gutters. The inferior paracolic implant likely infiltrates into the serosa of th e splenic flexure. There are multiple retroperitoneal lymphadenopathy. The largest measures up to 2 cm in left periaortic station on image 3 - 86. There is diffusely enlarged heterogeneously enhanc ing left adrenal gland with mild nodularity. There is approximately 1.2 cm enhancing mass in the int erpolar region of the right kidney concerning for renal cell carcinoma. The aorta is of normal caliber. Aortic vascular calcifications are present. The maikel hepatis marina on is clear. The bowel and mesentery, as visualized, are equally unremarkable. CT pelvis: The small bowel loops situated within the pelvis are unremarkable. Small fibroids are again identifi ed. There is solid appearance of prominent ovaries bilaterally. The pelvic sidewalls and inguinal re gions are clear. The sigmoid colon and rectum are unremarkable. No mass, lymphadenopathy, or free fluid is seen. No acute inflammation is seen. The bladder is normal. Numerous lytic lesions are se en in the visualized axial skeleton. Some of the lytic lesions particularly left lower rib lesions appear slightly more conspicuous on the current study. IMPRESSION: 1. Large left renal mass infiltrating into the left renal vein, pararenal fascia into the pericolic gutter. 2. Multiple retroperitoneal lymphadenopathy. 3. Numerous lytic osseous metastasis. Some of the osseous metastasis appear larger particularly in the left-sided rib lesions compared to recent study. 4. Multiple small pulmonary metastasis. 5. Slightly increased small left-sided pleural effusion. 6. Left adrenal metastasis. 7. Prominent spleen with adjacent small fluid collection, unchanged. 8. Small enhancing mass in the right kidney measures up to 1.2 cm concerning for renal cell carcino ma, unchanged. RPTAT: BB .Jd Rowell MD, MD Date Time Electronically viewed and signed by .Jd Rowell MD, on 03/10/2016 15:34 .O/
[2016-03-10] MEDS ORDERED: GLUCAGON 1 MG INJ IM PRN (16:00)
[2016-03-10] MEDS ORDERED: GLUCOSE GEL 15 GRAM TUBE BUCCAL PRN (16:00)
[2016-03-10] MEDS ORDERED: GLUCOSE GEL 15 GRAM TUBE PO PRN ×2 (16:00)
[2016-03-10] MEDS ORDERED: DEXTROSE 50% 50 ML SYRINGE IV PRN ×2 (16:00)
--- NOTE | 2016-03-10 17:04 | HP ---
Date/Time of Note Date/Time of Note DATE: 03/10/16 TIME: 16:26 Assessment/Plan VTE Prophylaxis VTE Prophylaxis Intervention: SCD's Lines/Catheters IV [facility] Peripheral IV Urinary Cath still in place: No Assessment/Plan Assessment/Plan 61-year-old, unfortunate female with: 1. Acute on chronic anemia, severely symptomatic with lethargy, generalized weakness. Patient is type and crossed to receive 2 units of packed red blood cells. There is no signs of acute bleeding therefore this episode of anemia may be related to her metastatic carcinoma. Follow-up H&H in a.m. , continue supportive care 2. 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 Mostly unchanged on CAT scan except for more prominent left rib metastatic lesion. I am concerned that the patient overall functional status is not improving and likely will not improve enough to attempt chemotherapy even if there is a regimen that is available for her carcinoma. Per discussion with oncology on her last admission, it seems like the patient has very limited options when it comes to chemotherapy. I have asked oncology, Dr. Godoy or Dr. Horn, to please discuss prognosis with the patient and the patient's family as she may not have many options but palliative care at this point. Continue MS Contin and oxycodone for pain control 3. Hypertension. Currently hypotensive and hypovolemic, hold Atenolol. 4. Diabetes mellitus: Sliding scale insulin, she will be started on clear liquid diet. 5. Lethargic, generalized weakness, secondary anemia and metastatic carcinoma. Blood transfusion today, recheck H&H in a.m. PT as tolerated Prophylaxis. Protonix for gastrointestinal prophylaxis. SCDs to lower extremity for deep vein thrombosis prophylaxis. Disposition: Admit to MedSurg, blood transfusion, oncology reevaluation in a.m. Patient may benefit from palliative care consult and unfortunately possibly home hospice as future disposition HPI/ROS Admit Date/Time Admit Date/Time Hx of Present Illness Mrs. Henderson is a 61-year-old female, unfortunately with diagnosis of metastatic spindle cell renal cell carcinoma, now with chronic anemia, also diabetes mellitus, hypertension. [facility] admission here at [facility]. According to the patient she has been increasingly weak and lethargic over the past 3 days. According to the daughter at the bedside she noticed that her mother has been declining for the past 6 days. The patient has been having episodes of nausea and vomiting, no hematemesis, no hematochezia, no melena reported. Her p.o. intake has decreased significantly she is basically on clear liquids at the jail facility. She has been increasingly lethargic over the past 3 days at least. She is very weak and has not participated in physical therapy for the past week at least. According to the daughter at the bedside she is not aware of any lab tests being sent. Today after she insisted, the patient was transferred to [facility] via private ambulance from the [facility] for re-evaluation. She is noted to be again anemic with hemoglobin down to 7.3, likely is even lower than that as the patient is also dehydrated currently. She is type and cross for 2 units of packed red blood cells. CAT scan has been repeated for her abdomen and showing more or less unchanged metastatic disease but diffuse enough and severe. Patient will be admitted to a medical surgical bed, Dr. Horn has been contacted as in my opinion the patient and her family need to have a fady discussion with oncology regarding her options and the fact that at this point she may not be a candidate for any aggressive treatment if any are even available. 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 Medical History: diabetes, hypertension Past Surgical History Status post left kidney biopsy at [facility] last year Family History Significant Family History: no pertinent family hx Social History Alcohol Use: none Smoking Status: Never smoker Drug Use: none Exam/Review of Systems Vital Signs Vitals Vital Signs Date Time Temp Pulse Resp B/P Pulse Ox O2 Delivery O2 Flow Rate FiO2 03/10/16 14:17 82 20 104/64 99 Room Air 03/10/16 12:42 98.2 Exam Constitutional: alert, frail, oriented, other (Pale) Respiratory: clear to auscultation, diminished breath sounds (At the bases more prominent on the left side) Cardiovascular: nl pulses, regular rate and rhythm Gastrointestinal: soft, tender (Left flank, left lower abdomen, left lower chest) Extremities: normal pulses 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: [employer] II-XII intact, lethargic, nl mental status, nl speech Labs Result Diagram: 03/10/16 1300 03/10/16 1300 Medications Medications Current Medications Folic Acid (Folic Acid) 5 mg DAILY PO ; Start 03/11/16 at 09:00 Morphine Sulfate (Ms Contin (Er)) 15 mg Q12 PO ; Start 03/10/16 at 15:00 Oxycodone HCl 10 mg 10 mg Q4H PRN PO PAIN; Start 03/10/16 at 15:00 Sodium Chloride (NS) 1,000 ml @ 75 mls/hr [id number] IV ; Start 03/10/16 at 14:41 Ondansetron HCl (Zofran Inj) 4 mg Q6H PRN IV NAUSEA AND/OR VOMITING; Start at 15:00 Acetaminophen (Tylenol Tab) 650 mg Q6H PRN PO PAIN LEVEL 1-3 OR FEVER; Start at 15:00 Morphine Sulfate (morphine) 2 mg Q4H PRN IV SEVERE PAIN LEVEL 7-10; Start 03/10 at 15:00 Docusate Sodium (Colace) 100 mg Q12H PRN PO CONSTIPATION; Start 03/10/16 at 15: 00 Magnesium Hydroxide (Milk Of Mag) 30 ml DAILY PRN PO CONSTIPATION; Start at 15:00 Bisacodyl (Dulcolax Supp) 10 mg DAILY PRN NC CONSTIPATION; Start 03/10/16 at 15 :00 Famotidine (Pepcid Iv) 20 mg DAILY IV ; Start 03/10/16 at 21:00 Miscellaneous Information 1 ea NOTE XX ; Start 03/10/16 at 16:00 Glucose (Glutose) 15 gm Q15M PRN PO DECREASED GLUCOSE; Start 03/10/16 at 16:00 Glucose (Glutose) 22.5 gm Q15M PRN PO DECREASED GLUCOSE; Start 03/10/16 at 16: 00 Dextrose (D50w Syringe) 25 ml Q15M PRN IV DECREASED GLUCOSE; Start 03/10/16 at 16:00 Dextrose (D50w Syringe) 50 ml Q15M PRN IV DECREASED GLUCOSE; Start 03/10/16 at 16:00 Glucagon (Glucagen) 1 mg Q15M PRN IM DECREASED GLUCOSE; Start 03/10/16 at 16:00 Glucose (Glutose) 15 gm Q15M PRN BUCCAL DECREASED GLUCOSE; Start 03/10/16 at 16 :00 Procedures Procedures PROCEDURE: CT Abdomen and Pelvis with contrast. CLINICAL INDICATION: Abdominal pain with nausea and vomiting. History of renal cancer. TECHNIQUE: CT scan of the abdomen and pelvis with contrast was performed on a multi-detector high-resolution CT scanner. The patient was scanned following the uncomplicated intravenous administration of 90 cc of Omnipaque 300. Coronal and sagittal reformatted images were obtained from the axial source images. Images were reviewed on a high-resolution PACS workstation. The total exam CTDI equals 16.31 mGy and the total exam DLP equals 981.45 mGy-cm. One or more of the following dose reduction techniques were used: Automated exposure control. Adjustment of the mA and/or kV according to patient size. Use of iterative reconstruction technique. COMPARISON: CT abdomen and pelvis 02/13/2016 FINDINGS: CT abdomen: The lung bases are remarkable for increasing small left pleural effusion with adjacent atelectasis. Multiple small pulmonary nodules are seen again identified in bilateral lower lobes. There has been significant progression of the lytic expansile lesion involving the left posterolateral 8th rib. The heart size is normal, without pericardial thickening or effusion. The liver is normal in size and density without focal mass or intrahepatic biliary dilatation. The spleen is normal in size and homogeneous in density. There is small amount of perisplenic fluid. The stomach is partially collapsed , but is grossly unremarkable. The pancreas as visualized is normal. The gallbladder and biliary tree are unremarkable and there is no evidence for biliary dilatation. The adrenal glands are symmetric and normal. Redemonstrated is a large heterogeneously enhancing infiltrative mass arising from the interpolar region of the left kidney measuring 13.6 x 8.2 cm on sagittal reformat images. There is tumor extension throughout the left renal vein with no extension into the IVC. There is extension of the renal mass into the left retroperitoneal space. There are several more homogeneously enhancing implants in the left paracolic gutters. The inferior paracolic implant likely infiltrates into the serosa of the splenic flexure. There are multiple retroperitoneal lymphadenopathy. The largest measures up to 2 cm in left periaortic station on image 3 - 86. There is diffusely enlarged heterogeneously enhancing left adrenal gland with mild nodularity. There is approximately 1.2 cm enhancing mass in the interpolar region of the right kidney concerning for renal cell carcinoma. The aorta is of normal caliber. Aortic vascular calcifications are present. The maikel hepatis region is clear. The bowel and mesentery, as visualized, are equally unremarkable. CT pelvis: The small bowel loops situated within the pelvis are unremarkable. Small fibroids are again identified. There is solid appearance of prominent ovaries bilaterally. The pelvic sidewalls and inguinal regions are clear. The sigmoid colon and rectum are unremarkable. No mass, lymphadenopathy, or free fluid is seen. No acute inflammation is seen. The bladder is normal. Numerous lytic lesions are seen in the visualized axial skeleton. Some of the lytic lesions particularly left lower rib lesions appear slightly more conspicuous on the current study. IMPRESSION: 1. Large left renal mass infiltrating into the left renal vein, pararenal fascia into the pericolic gutter. 2. Multiple retroperitoneal lymphadenopathy. 3. Numerous lytic osseous metastasis. Some of the osseous metastasis appear larger particularly in the left-sided rib lesions compared to recent study. 4. Multiple small pulmonary metastasis. 5. Slightly increased small left-sided pleural effusion. 6. Left adrenal metastasis. 7. Prominent spleen with adjacent small fluid collection, unchanged. 8. Small enhancing mass in the right kidney measures up to 1.2 cm concerning for renal cell carcinoma, unchanged. JOSE TORIBIO Mar 10, 2016 16:57
--- NOTE | 2016-03-10 19:19 | ERA ---
ER Documentation Chief Complaint Date/Time DATE: 03/10/16 TIME: 19:11 Chief Complaint ABDOMINAL PAIN X 6 DAYS,N/V, GENERALIZED BODY PAIN, HX OF KIDNEY CANCER HPI This is a 61-year-old female that presents to the emergency department brought in by EMS from [facility]. The patient has a recent diagnosis of metastatic spindle renal cell carcinoma. The patient indicates that over the past 6 days she has had a decrease in appetite with multiple episodes of nonbloody nonbilious emesis. She has had no fevers no shaking or chills. She complains of diffuse abdominal pain that is 10 out of 10 in intensity. She denies any shortness of breath at rest or exertion. She denies any hemoptysis hematemesis or melanotic stools. She denies any chest pain or pressure that radiates to the neck arm back or jaw. ROS All systems reviewed and are negative except as per history of present illness. Medications Home Meds Reported Medications Ondansetron Hcl* (Zofran*) 4 Mg Tablet, 4 MG PO Q8 Y for NAUSEA AND OR VOMITING , TAB 02/13/16 Acetaminophen* (Acetaminophen*) 650 Mg Tablet, 650 MG PO Q6H Y for PAIN AND OR ELEVATED TEMP, #30 TAB 02/13/16 Lactobacillus Acidophilus (Probiotic) 1 Each Capsule, 1 CAP PO DAILY, CAP 02/13/16 Oxycodone Hcl* (IR) (Oxycodone Hcl*) 5 Mg Capsule, 10 MG PO Q4H Y for PAIN, CAP 02/13/16 Morphine Sulfate* (Ms Contin*) 15 Mg Tablet.sa, 15 MG PO Q12 Y for PAIN, TAB 02/13/16 Meclizine Hcl* (Meclizine Hcl*) 25 Mg Tablet, 25 MG PO Q8H Y for DIZZINESS, TAB STARTED 02-12-16 STOP 02-15-16 02/13/16 Folic Acid* (Folic Acid*) 1 Mg Tablet, 5 MG PO DAILY, TAB 02/13/16 Atenolol* (Atenolol*) 25 Mg Tablet, 25 MG PO DAILY, #30 TAB 02/13/16 Discontinued Reported Medications Levofloxacin* (Levaquin*) 500 Mg Tablet, 500 MG PO DAILY, TAB STARTED 02-11-16 STOP 02-17-16 02/13/16 Allergies Allergies: Coded Allergies: codeine (Verified Allergy, Unknown, 03/10/16) PMhx/Soc History of Surgery: No Anesthesia Reaction: No Hx 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 Disorder: No Hx Respiratory Disorders: No Hx Cardiac Disorders: Yes (HTN ) Hx Psychiatric Problems: No Hx Miscellaneous Medical Probl: Yes (HTN, DM, KIDNEY CANCER ) Hx Alcohol Use: Yes Hx Substance Use: No Hx Tobacco Use: No Smoking Status: Never smoker Physical Exam Vitals Vital Signs Date Time Temp Pulse Resp B/P Pulse Ox O2 Delivery O2 Flow Rate FiO2 03/10/16 18:30 97.4 81 13 102/66 99 Room Air 03/10/16 17:30 97.4 80 13 106/63 Room Air 03/10/16 17:15 97.5 78 20 105/62 Room Air 03/10/16 14:17 82 20 104/64 99 Room Air 03/10/16 12:42 98.2 82 20 104/64 99 Physical Exam Constitutional:Well-developed. Not in acute respiratory distress. HEENT:Normocephalic. Atraumatic.Pupils were equal round reactive to light. Very dry mucous membranes.No tonsillar exudates. Conjunctival pallor Neck: No nuchal rigidity. No lymphadenopathy. No posterior cervical spine tenderness or step-offs. Respiratory: Not using accessory muscles of respiration.Lungs were clear to auscultation bilaterally. No rhonchi. No rales. No wheezing. Cardiovascular: Tachycardic with regular rhythm.No murmurs. No rubs were appreciated.S1, S2 normal. Distal pulses are palpable 2+ bilaterally. GI: Abdomen was soft. Diffuse abdominal tenderness. Non Distended. No pulsatile abdominal masses or bruits. No rebound. No guarding. Bowel sounds were present and normal. Muscle skeletal: Full range of motion of both the upper and lower extremities bilaterally.Normal muscle tone.No assymetrical calf tenderness or swelling. Skin: No petechia, no purpura. No lesions on the palms or the soles of the feet. No maculopapular rash. NEURO: Patient was alert, awake, orientated x3.No facial droop. Gait not observed as patient was too weak to ambulate Result Diagram: 03/10/16 1300 03/10/16 1300 Results 24 hrs Laboratory Tests Test 03/10/16 13:00 Activated Partial Thromboplast Time 31.5Sec Alanine Aminotransferase (ALT/SGPT) 20IU/L Albumin 2.9g/dl Albumin/Globulin Ratio 0.76 Alkaline Phosphatase 96IU/L Amylase Level < 30U/L Anion Gap 15 Aspartate Amino Transf (AST/SGOT) 12IU/L Basophils # 0.010^3/ul Basophils % 0.1% Blood Morphology Comment Blood Urea Nitrogen 13mg/dl Calcium Level 10.0mg/dl Carbon Dioxide Level 31mmol/L Chloride Level 91mmol/L Creatinine 0.51mg/dl Direct Bilirubin 0.00mg/dl Eosinophils # 0.110^3/ul Eosinophils % 0.9% Globulin 3.80g/dl Glucose Level 131mg/dl Hematocrit 22.2% Hemoglobin 7.3g/dl INR International Normalized Ratio 1.14 Indirect Bilirubin 0.6mg/dl Lactic Acid Level 1.1mmol/L Lipase 23U/L Lymphocytes # 1.010^3/ul Lymphocytes % 11.3% Mean Corpuscular Hemoglobin 28.0pg Mean Corpuscular Hemoglobin Concent 33.0g/dl Mean Corpuscular Volume 84.8fl Mean Platelet Volume 6.5fl Monocytes # 0.710^3/ul Monocytes % 7.7% Neutrophils # 7.210^3/ul Neutrophils % 80.0% Nucleated Red Blood Cells # 0.010^3/ul Nucleated Red Blood Cells % 0.0/100WBC Platelet Count 97111^3/UL Potassium Level 3.9mmol/L Prothrombin Time 14.6Sec Prothrombin Time Ratio 1.1 Red Blood Count 2.6210^6/ul Red Cell Distribution Width 16.1% Sodium Level 133mmol/L Total Bilirubin 0.6mg/dl Total Protein 6.7g/dl Troponin I 0.016ng/ml White Blood Count 9.010^3/ul Current Medications Medications (Trade) Dose Ordered Sig/Jose C Route PRN Reason Start Time Stop Time Status Last Admin Dose Admin Sodium Chloride (NS) 1,000 ml @ 1,000 mls/hr Q1H STAT IV 03/10/16 12:44 03/10/16 13:43 DC 03/10/16 13:58 Morphine Sulfate (morphine) 4 mg ONCE STAT IV 03/10/16 12:44 03/10/16 12:45 DC 03/10/16 12:44 Ondansetron HCl (Zofran Inj) 4 mg ONCE STAT IV 03/10/16 12:44 03/10/16 12:45 DC 03/10/16 13:58 Ondansetron HCl (Zofran Inj) 4 mg BRIDGE ORDER PRN IV NAUSEA AND/OR VOMITING 03/10/16 14:00 03/11/16 13:59 Acetaminophen (Tylenol Tab) 650 mg ER BRIDGE PRN PO MILD PAIN/FEVER 03/10/16 14:00 03/11/16 13:59 03/10/16 13:54 IV Flush 10 ml 10 ml STK-MED ONCE .ROUTE 03/10/16 14:32 03/10/16 14:33 DC 03/10/16 14:52 Sodium Chloride (NS) 100 ml @ ud STK-MED ONCE .ROUTE 03/10/16 14:32 03/10/16 14:33 DC 03/10/16 14:52 Iohexol (Omnipaque 300mg/ ml) 150 ml STK-MED ONCE .ROUTE 03/10/16 14:32 03/10/16 14:33 DC 03/10/16 14:52 Folic Acid (Folic Acid) 5 mg DAILY PO 03/11/16 09:00 Morphine Sulfate (Ms Contin (Er)) 15 mg Q12 PO 03/10/16 15:00 Oxycodone HCl 10 mg 10 mg Q4H PRN PO PAIN 03/10/16 15:00 Sodium Chloride (NS) 1,000 ml @ 75 mls/hr [id number] IV 03/10/16 14:41 IV Flush (NS 3 ml) 3 ml PER PROTOCOL IV 03/10/16 15:00 Ondansetron HCl (Zofran Inj) 4 mg Q6H PRN IV NAUSEA AND/OR VOMITING 03/10/16 15:00 Acetaminophen (Tylenol Tab) 650 mg Q6H PRN PO PAIN LEVEL 1-3 OR FEVER 03/10/16 15:00 Morphine Sulfate (morphine) 2 mg Q4H PRN IV SEVERE PAIN LEVEL 7-10 03/10/16 15:00 Docusate Sodium (Colace) 100 mg Q12H PRN PO CONSTIPATION 03/10/16 15:00 Magnesium Hydroxide (Milk Of Mag) 30 ml DAILY PRN PO CONSTIPATION 03/10/16 15:00 Bisacodyl (Dulcolax Supp) 10 mg DAILY PRN TN CONSTIPATION 03/10/16 15:00 Famotidine (Pepcid Iv) 20 mg DAILY IV 03/10/16 21:00 Insulin Aspart (Novolog Insulin Pen) NOVOLOG *MILD* ALGORITHM WITH MEALS BEDTIME SC 03/10/16 18:00 Miscellaneous Information (* Miscellaneous Pharmacy Order) HYPOGLYCEMIA PROTOCOL w... ONCE ONCE XX 03/10/16 16:00 03/10/16 16:01 DC Miscellaneous Information (* Miscellaneous Pharmacy Order) Discontinue Glyburide, Glipizide,... ONCE ONCE XX 03/10/16 16:00 03/10/16 16:01 DC Miscellaneous Information (* Miscellaneous Pharmacy Order) Discontinue all previ... ONCE ONCE XX 03/10/16 16:00 03/10/16 16:01 DC Miscellaneous Information 1 ea NOTE XX 03/10/16 16:00 Glucose (Glutose) 15 gm Q15M PRN PO DECREASED GLUCOSE 03/10/16 16:00 Glucose (Glutose) 22.5 gm Q15M PRN PO DECREASED GLUCOSE 03/10/16 16:00 Dextrose (D50w Syringe) 25 ml Q15M PRN IV DECREASED GLUCOSE 03/10/16 16:00 Dextrose (D50w Syringe) 50 ml Q15M PRN IV DECREASED GLUCOSE 03/10/16 16:00 Glucagon (Glucagen) 1 mg Q15M PRN IM DECREASED GLUCOSE 03/10/16 16:00 Glucose (Glutose) 15 gm Q15M PRN BUCCAL DECREASED GLUCOSE 03/10/16 16:00 Procedures/MDM This patient presented to the emergency department with abdominal pain and was seen and evaluated by myself. My differential diagnosis included but was not limited to abdominal aortic aneurysm, appendicitis, pancreatitis, perforated peptic ulcer, perforated viscus, Boerhaaves syndrome or visceral pain such as diverticulitis, DKA, esophagitis, hepatitis or bowel obstruction. The patient was placed on a monitoring analyst, continuous pulse oximetry, and IV access was established by nursing staff. The patient received intravenous morphine and Zofran for analgesia control. The patient had diffuse pallor and was anemic with a hemoglobin of 7.3 and was transfused 2 units of packed red blood cells in the emergency department. I did obtain a CT scan given that the patient had diffuse abdominal tenderness which was reviewed by the radiologist as well as myself and indicated the followin. Large left renal mass infiltrating into the left renal vein, pararenal fascia into the pericolic gutter. 2. Multiple retroperitoneal lymphadenopathy. 3. Numerous lytic osseous metastasis. Some of the osseous metastasis appear larger particularly in the left-sided rib lesions compared to recent study. 4. Multiple small pulmonary metastasis. 5. Slightly increased small left-sided pleural effusion. 6. Left adrenal metastasis. 7. Prominent spleen with adjacent small fluid collection, unchanged. 8. Small enhancing mass in the right kidney measures up to 1.2 cm concerning for renal cell carcinoma, unchanged. 12 Lead EKG tracing ordered and reviewed by myself showed: Normal sinus rhythm of 81 bpm and no arrhythmia. TN interval normal. QRS duration normal. No ST segment elevation No ST segment depression. T-wave inversion in the inferior leads III Patient will be admitted in serious condition to and will go to the medical surgical floor with an anticipated stay of greater than 2 midnights Departure Diagnosis: Primary Impression: Symptomatic anemia Additional Impressions: Renal cell carcinoma Qualified Code: C64.1 - Renal cell carcinoma, right Intractable pain Condition: Serious JOSE ANTONIO STOKES Mar 10, 2016 19:19
[2016-03-10 19:53] VITALS: TEMP 96.9
[2016-03-10] MEDS: morphine (ER) 15 MG TAB PO SCH ×2 (21:00→22:29)
[2016-03-10] MEDS: INSULIN ASPART [NOVOLOG] 3 ML PEN SC SCH ×2 (21:00→21:21)
[2016-03-10 21:17] VITALS: BP 115/60; RESP 18
[2016-03-10] MEDS: FAMOTIDINE 20 MG INJ IV SCH (22:19)
[2016-03-11 06:22] LABS: BASOPHILS % 0.2 % (0.0-2.0); EOSINOPHILS # 0.1 10^3/ul (0.0-0.5); EOSINOPHILS % 0.8 % (0.0-7.0); HEMATOCRIT 28.6 % (37.0-47.0); HEMOGLOBIN 9.8 g/dl (12.0-16.0); LYMPHOCYTES # 0.8 10^3/ul (0.8-2.9); LYMPHOCYTES % 10.7 % (15.0-51.0); MEAN CORPUSCULAR HEMOGLOBIN 29.4 pg (29.0-33.0); MEAN CORPUSCULAR HGB CONC 34.1 g/dl (32.0-37.0); MEAN CORPUSCULAR VOLUME 86.3 fl (82.0-101.0); MEAN PLATELET VOLUME 6.5 fl (7.4-10.4); MONOCYTE # 0.5 10^3/ul (0.3-0.9); MONOCYTES % 6.9 % (0.0-11.0); NEUTROPHIL # 6.4 10^3/ul (1.6-7.5); NEUTROPHILS % 81.4 % (39.0-77.0); PLATELET COUNT 204 10^3/UL (140-440); RED BLOOD COUNT 3.31 10^6/ul (4.20-5.40); UNCORRECTED WBC 7.8 10^3/ul (4.8-10.8); WHITE BLOOD COUNT 7.8 10^3/ul (4.8-10.8)
[2016-03-11 06:40] LABS: CONDITION 1; LH ANALYZER COMMENTS 1
[2016-03-11 06:59] LABS: ALBUMIN 2.4 g/dl (3.3-4.9)
[2016-03-11 07:00] LABS: POTASSIUM 3.9 mmol/L (3.5-5.1)
[2016-03-11 07:02] LABS: ALBUMIN/GLOBULIN RATIO 0.61; BILIRUBIN,INDIRECT 1.8 mg/dl (0-1.1); BILIRUBIN,TOTAL 1.8 mg/dl (0.2-1.3); CREATININE 0.4 mg/dl (0.44-1.00); PHOSPHORUS 2.6 mg/dl (2.5-4.9); TOTAL PROTEIN 6.3 g/dl (6.1-8.1)
[2016-03-11 07:03] LABS: CALCIUM 9.4 mg/dl (8.4-10.2); MAGNESIUM 1.8 mg/dl (1.7-2.5)
[2016-03-11 07:20] LABS: URIC ACID 3.9 mg/dl (3.1-7.9)
[2016-03-11] MEDS: morphine (ER) 15 MG TAB PO SCH ×3 (08:03→20:55)
[2016-03-11] MEDS: FAMOTIDINE 20 MG INJ IV SCH (08:03)
[2016-03-11] MEDS: INSULIN ASPART [NOVOLOG] 3 ML PEN SC SCH ×4 (08:03→20:55)
[2016-03-11] MEDS: SOD CHLORIDE 0.9% 1,000 ML IV SCH ×2 (08:04→17:00)
[2016-03-11 08:09] VITALS: BP 118/56; RESP 20
[2016-03-11] MEDS: FOLIC ACID 1 MG TAB PO SCH (12:28)
[2016-03-11] MEDS: morphine 2 MG INJ IV PRN (12:28)
--- NOTE | 2016-03-11 14:50 | PN ---
Date/Time of Note Date/Time of Note DATE: 03/11/16 TIME: 14:42 Assessment/Plan VTE Prophylaxis VTE Prophylaxis Intervention: SCD's Lines/Catheters IV [facility]ter [facility] (from [facility]): Peripheral IV Urinary Cath still in place: No Assessment/Plan Assessment/Plan 61-year-old, unfortunate female with: 1. Acute on chronic anemia, severely symptomatic with lethargy, generalized weakness. S/p 2 units of packed red blood cells and Hb up to 9.8. No signs of acute bleeding, anemia work up pending Follow-up H&H in a.m. , continue supportive care 2. 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 Mostly unchanged on CAT scan except for more prominent left rib metastatic lesion. I am concerned that the patient overall functional status is not improving and likely will not improve enough to attempt chemotherapy even if there is a regimen that is available for her carcinoma. Per discussion with oncology on her last admission, it seems like the patient has very limited options when it comes to chemotherapy. I have asked oncology, Dr. Godoy or Dr. Horn, to please discuss prognosis with the patient and the patient's family as she may not have many options but palliative care at this point. Continue MS Contin and oxycodone for pain control 3. Hypertension. Currently hypotensive and hypovolemic, hold Atenolol. 4. Diabetes mellitus: Sliding scale insulin, she will be started on clear liquid diet. 5. Lethargic, generalized weakness, secondary anemia and metastatic carcinoma. F/u CBC in a.m. PT as tolerated Prophylaxis. Protonix for gastrointestinal prophylaxis. SCDs to lower extremity for deep vein thrombosis prophylaxis. Disposition: Oncology re-evaluation today. Patient may benefit from palliative care consult and unfortunately possibly home hospice as future disposition Subjective 24 Hr Interval Summary Free Text/Dictation Patient with severe generalized weakness Hb up to 9.8 post transfusion but still weak and unable to tolerate much po Oncology to see and address diagnosis and prognosis Exam/Review of Systems Vital Signs Vitals Vital Signs Date Time Temp Pulse Resp B/P Pulse Ox O2 Delivery O2 Flow Rate FiO2 03/11/16 08:09 98.0 70 20 118/56 98 03/10/16 19:53 Room Air Intake and Output 03/10/16 03/10/16 03/11/16 15:00 23:00 07:00 Intake Total 350 ml 120 ml Balance 350 ml 120 ml Exam Constitutional: alert, frail, oriented Respiratory: clear to auscultation, normal air movement Cardiovascular: nl pulses, regular rate and rhythm Gastrointestinal: soft, tender (left abdomen ) Musculoskeletal: nl extremities to inspection Extremities: normal pulses, other (some anasarca) 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: [employer] TECH II-XII intact, lethargic, nl mental status Results Result Diagram: 03/11/16 0530 03/11/16 0530 Results 24 hrs Laboratory Tests Test 03/10/16 21:19 03/11/16 05:30 03/11/16 08:02 03/11/16 12:26 Bedside Glucose 131 131 143 Alanine Aminotransferase (ALT/SGPT) 17 Albumin 2.4 L Albumin/Globulin Ratio 0.61 Alkaline Phosphatase 79 Anion Gap 15 Aspartate Amino Transf (AST/SGOT) 13 L Basophils # 0.0 Basophils % 0.2 Blood Morphology Comment Blood Urea Nitrogen 14 Calcium Level 9.4 Carbon Dioxide Level 29 Chloride Level 95 L Creatinine 0.40 L Direct Bilirubin 0.00 Eosinophils # 0.1 Eosinophils % 0.8 Globulin 3.90 H Glucose Level 109 Hematocrit 28.6 #L Hemoglobin 9.8 #L Indirect Bilirubin 1.8 H Lactate Dehydrogenase 595 Lymphocytes # 0.8 Lymphocytes % 10.7 L Magnesium Level 1.8 Mean Corpuscular Hemoglobin 29.4 Mean Corpuscular Hemoglobin Concent 34.1 Mean Corpuscular Volume 86.3 Mean Platelet Volume 6.5 L Monocytes # 0.5 Monocytes % 6.9 Neutrophils # 6.4 Neutrophils % 81.4 H Nucleated Red Blood Cells # 0.0 Nucleated Red Blood Cells % 0.0 Phosphorus Level 2.6 Platelet Count 204 Potassium Level 3.9 Red Blood Count 3.31 #L Red Cell Distribution Width 16.0 H Sodium Level 135 Total Bilirubin 1.8 H Total Protein 6.3 Uric Acid 3.9 White Blood Count 7.8 Medications Medications Current Medications Folic Acid (Folic Acid) 5 mg DAILY PO Last administered on 03/11/16 12:28; Admin Dose 5 MG; Start 03/11/16 at 09:00 Morphine Sulfate (Ms Contin (Er)) 15 mg Q12 PO Last administered on 03/11/16 08 :03; Admin Dose 15 MG; Start 03/10/16 at 15:00 Oxycodone HCl 10 mg 10 mg Q4H PRN PO PAIN; Start 03/10/16 at 15:00 Sodium Chloride (NS) 1,000 ml @ 75 mls/hr [id number] IV Last administered on 03/10 22:04; Admin Dose 75 MLS/HR; Start 03/10/16 at 14:41 Ondansetron HCl (Zofran Inj) 4 mg Q6H PRN IV NAUSEA AND/OR VOMITING; Start at 15:00 Acetaminophen (Tylenol Tab) 650 mg Q6H PRN PO PAIN LEVEL 1-3 OR FEVER; Start at 15:00 Morphine Sulfate (morphine) 2 mg Q4H PRN IV SEVERE PAIN LEVEL 7-10 Last administered on 03/11/16 12:28; Admin Dose 2 MG; Start 03/10/16 at 15:00 Docusate Sodium (Colace) 100 mg Q12H PRN PO CONSTIPATION; Start 03/10/16 at 15: 00 Magnesium Hydroxide (Milk Of Mag) 30 ml DAILY PRN PO CONSTIPATION; Start at 15:00 Bisacodyl (Dulcolax Supp) 10 mg DAILY PRN [place] CONSTIPATION; Start 03/10/16 at 15 :00 Famotidine (Pepcid Iv) 20 mg DAILY IV Last administered on 03/11/16 08:03; Admin Dose 20 MG; Start 03/10/16 at 21:00 Miscellaneous Information 1 ea NOTE XX ; Start 03/10/16 at 16:00 Glucose (Glutose) 15 gm Q15M PRN PO DECREASED GLUCOSE; Start 03/10/16 at 16:00 Glucose (Glutose) 22.5 gm Q15M PRN PO DECREASED GLUCOSE; Start 03/10/16 at 16: 00 Dextrose (D50w Syringe) 25 ml Q15M PRN IV DECREASED GLUCOSE; Start 03/10/16 at 16:00 Dextrose (D50w Syringe) 50 ml Q15M PRN IV DECREASED GLUCOSE; Start 03/10/16 at 16:00 Glucagon (Glucagen) 1 mg Q15M PRN IM DECREASED GLUCOSE; Start 03/10/16 at 16:00 Glucose (Glutose) 15 gm Q15M PRN BUCCAL DECREASED GLUCOSE; Start 03/10/16 at 16 :00 JOSE TORIBIO Mar 11, 2016 14:49
[2016-03-11] MEDS: COLLAGENASE 30 GM TUBE TOP SCH (15:30)
[2016-03-11 16:29] LABS: HEMATOCRIT 29.4 % (37.0-47.0); HEMOGLOBIN 9.7 g/dl (12.0-16.0)
[2016-03-11 16:48] LABS: RETICULOCYTE COUNT % 0.6 % (0.5-1.5)
--- NOTE | 2016-03-11 17:26 | CONS ---
Date/Time of Note Date/Time of Note DATE: 03/11/16 TIME: 17:15 Assessment/Plan Assessment/Plan Chief Complaint/Hosp Course 61 year old woman with metastatic spindle cell renal cell carcinoma with invasion of the left renal vein and retroperitoneal lymphadenopathy, and suspicion for adrenal metastasis, skeletal metastases and pulmonary metastases, previously admitted for GIB bleed, now with progressive weakness and anemia. New CT scan shows large renal renal mass, multiple RP LAD, osseous mets, small pulm mets, left adrenal met, mostly unchanged on CAT scan except for more prominent left rib metastatic lesion. She had not been restarted on sutent since discharge as unable to see Dr. Bejarano due to lack of transportation. - She was readmitted with acute on chronic anemia with Hgb 7.3, transfused to 9.8 today, and severe weakness with no signs of acute bleeding. Will check iron panel, ferritin, LDH, retic count, B12/fol. - Due to poor [place] ECOG 4, further therapy with sutent may do more harm than good. Although not chemotherapy, oral TKIs may have side effects including hand -foot syndrome, fatigue, diarrhea, hypertension, mucositis that may be difficult for her to manage in her weakened state. I have discussed the case with her daughter Bev ([phone]) who will will decide potentially for hospice/palliative care pending further thought and discussion with her . I have also notified Dr. Bejarano of her admission. Problems: Consultation Date/Type/Reason Admit Date/Time Mar 10, 2016 at 13:34 Initial Consult Date 24 HR Interval Summary Free Text/Dictation 61 year old woman with metastatic spindle cell renal cell carcinoma with invasion of the left renal vein and retroperitoneal lymphadenopathy, and suspicion for adrenal metastasis, skeletal metastases and pulmonary metastases, previously admitted for GIB bleed. Sutent was held due to concern possibly related to GI bleed. 02/17/16 colonoscopy showed 2 cm rectal ulcer, and 8 mm sigmoid polyp with large internal hemorrhoids, path demonstrated only tubular adenoma and no high grade dysplasia of sigmoid colon polymp, and early hyperplastic polyp with no ulcer identified of rectal ulcer biopsy. Patient was discharged with plan to follow up with Dr. Bejarano as an outpatient but unfortunately due to transportation issues, was never able to be seen by him and she has not restarted the sutent. She was readmitted with acute on chronic anemia with Hgb 7.3, transfused to 9.8 today, and severe weakness with no signs of acute bleeding. She has been bedbound and unable to get up to go to the bathroom or to the dining room and cannot even turn in bed according to her daughter. New CT scan shows large renal renal mass, multiple RP LAD, osseous mets, small pulm mets, left adrenal met, mostly unchanged on CAT scan except for more prominent left rib metastatic lesion. Patient currently confused, and complains of abdominal and back pain. Exam/Review of Systems Vital Signs Vitals Vital Signs Date Time Temp Pulse Resp B/P Pulse Ox O2 Delivery O2 Flow Rate FiO2 03/11/16 08:09 98.0 70 20 118/56 98 03/10/16 19:53 Room Air Intake and Output 03/10/16 03/10/16 03/11/16 15:00 23:00 07:00 Intake Total 350 ml 120 ml Balance 350 ml 120 ml Exam Constitutional: distress, frail, non-verbal Psych: confusion Head: atraumatic, normocephalic Eyes: nl conjunctiva Neck: non-tender, supple Respiratory: clear to auscultation Cardiovascular: regular rate and rhythm Gastrointestinal: soft, tender Musculoskeletal: nl extremities to inspection Results Result Diagram: 03/11/16 1533 03/11/16 0530 Results 24 hrs Laboratory Tests Test 03/10/16 21:19 03/11/16 05:30 03/11/16 08:02 03/11/16 12:26 Bedside Glucose 131 131 143 Alanine Aminotransferase (ALT/SGPT) 17 Albumin 2.4 L Albumin/Globulin Ratio 0.61 Alkaline Phosphatase 79 Anion Gap 15 Aspartate Amino Transf (AST/SGOT) 13 L Basophils # 0.0 Basophils % 0.2 Blood Morphology Comment Blood Urea Nitrogen 14 Calcium Level 9.4 Carbon Dioxide Level 29 Chloride Level 95 L Creatinine 0.40 L Direct Bilirubin 0.00 Eosinophils # 0.1 Eosinophils % 0.8 Globulin 3.90 H Glucose Level 109 Hematocrit 28.6 #L Hemoglobin 9.8 #L Indirect Bilirubin 1.8 H Lactate Dehydrogenase 595 Lymphocytes # 0.8 Lymphocytes % 10.7 L Magnesium Level 1.8 Mean Corpuscular Hemoglobin 29.4 Mean Corpuscular Hemoglobin Concent 34.1 Mean Corpuscular Volume 86.3 Mean Platelet Volume 6.5 L Monocytes # 0.5 Monocytes % 6.9 Neutrophils # 6.4 Neutrophils % 81.4 H Nucleated Red Blood Cells # 0.0 Nucleated Red Blood Cells % 0.0 Phosphorus Level 2.6 Platelet Count 204 Potassium Level 3.9 Red Blood Count 3.31 #L Red Cell Distribution Width 16.0 H Sodium Level 135 Total Bilirubin 1.8 H Total Protein 6.3 Uric Acid 3.9 White Blood Count 7.8 Test 03/11/16 15:33 Absolute Reticulocyte Count 0.020 Hematocrit 29.4 L Hemoglobin 9.7 L Percent Reticulocyte Count 0.6 Medications Medications Current Medications Folic Acid (Folic Acid) 5 mg DAILY PO Last administered on 03/11/16 12:28; Admin Dose 5 MG; Start 03/11/16 at 09:00 Morphine Sulfate (Ms Contin (Er)) 15 mg Q12 PO Last administered on 03/11/16 08 :03; Admin Dose 15 MG; Start 03/10/16 at 15:00 Oxycodone HCl 10 mg 10 mg Q4H PRN PO PAIN; Start 03/10/16 at 15:00 Sodium Chloride (NS) 1,000 ml @ 75 mls/hr [id number] IV Last administered on 17:00; Admin Dose 75 MLS/HR; Start 03/10/16 at 14:41 Ondansetron HCl (Zofran Inj) 4 mg Q6H PRN IV NAUSEA AND/OR VOMITING; Start at 15:00 Acetaminophen (Tylenol Tab) 650 mg Q6H PRN PO PAIN LEVEL 1-3 OR FEVER; Start at 15:00 Morphine Sulfate (morphine) 2 mg Q4H PRN IV SEVERE PAIN LEVEL 7-10 Last administered on 03/11/16 12:28; Admin Dose 2 MG; Start 03/10/16 at 15:00 Docusate Sodium (Colace) 100 mg Q12H PRN PO CONSTIPATION; Start 03/10/16 at 15: 00 Magnesium Hydroxide (Milk Of Mag) 30 ml DAILY PRN PO CONSTIPATION; Start at 15:00 Bisacodyl (Dulcolax Supp) 10 mg DAILY PRN [place] CONSTIPATION; Start 03/10/16 at 15 :00 Famotidine (Pepcid Iv) 20 mg DAILY IV Last administered on 03/11/16 08:03; Admin Dose 20 MG; Start 03/10/16 at 21:00 Miscellaneous Information 1 ea NOTE XX ; Start 03/10/16 at 16:00 Glucose (Glutose) 15 gm Q15M PRN PO DECREASED GLUCOSE; Start 03/10/16 at 16:00 Glucose (Glutose) 22.5 gm Q15M PRN PO DECREASED GLUCOSE; Start 03/10/16 at 16: 00 Dextrose (D50w Syringe) 25 ml Q15M PRN IV DECREASED GLUCOSE; Start 03/10/16 at 16:00 Dextrose (D50w Syringe) 50 ml Q15M PRN IV DECREASED GLUCOSE; Start 03/10/16 at 16:00 Glucagon (Glucagen) 1 mg Q15M PRN IM DECREASED GLUCOSE; Start 03/10/16 at 16:00 Glucose (Glutose) 15 gm Q15M PRN BUCCAL DECREASED GLUCOSE; Start 03/10/16 at 16 :00 Collagenase (Santyl) 1 applic DAILY TOP ; Start 03/11/16 at 15:30 TO,ROSENDA Benjamin MD Mar 11, 2016 17:26
[2016-03-11 20:00] VITALS: BP 122/58; RESP 20
[2016-03-12 05:42] LABS: BASOPHILS % 0.3 % (0.0-2.0); EOSINOPHILS % 0.6 % (0.0-7.0); HEMATOCRIT 25.9 % (37.0-47.0); HEMOGLOBIN 8.8 g/dl (12.0-16.0); LYMPHOCYTES # 0.8 10^3/ul (0.8-2.9); MEAN CORPUSCULAR HEMOGLOBIN 29.3 pg (29.0-33.0); MEAN CORPUSCULAR HGB CONC 33.9 g/dl (32.0-37.0); MEAN CORPUSCULAR VOLUME 86.5 fl (82.0-101.0); MEAN PLATELET VOLUME 6.2 fl (7.4-10.4); MONOCYTE # 0.6 10^3/ul (0.3-0.9); MONOCYTES % 7.6 % (0.0-11.0); NEUTROPHIL # 5.9 10^3/ul (1.6-7.5); NEUTROPHILS % 80.5 % (39.0-77.0); PLATELET COUNT 207 10^3/UL (140-440); RED BLOOD COUNT 2.99 10^6/ul (4.20-5.40); RED CELL DISTRIBUTION WIDTH 15.8 % (11.5-14.5); UNCORRECTED WBC 7.4 10^3/ul (4.8-10.8); WHITE BLOOD COUNT 7.4 10^3/ul (4.8-10.8)
[2016-03-12 05:43] LABS: RETICULOCYTE COUNT % 0.3 % (0.5-1.5)
[2016-03-12 06:08] LABS: MAGNESIUM 1.7 mg/dl (1.7-2.5); PHOSPHORUS 2.4 mg/dl (2.5-4.9)
[2016-03-12 06:18] LABS: ALBUMIN 2.5 g/dl (3.3-4.9); POTASSIUM 3.6 mmol/L (3.5-5.1)
[2016-03-12 06:21] LABS: ALBUMIN/GLOBULIN RATIO 0.75; BILIRUBIN,INDIRECT 0.8 mg/dl (0-1.1); BILIRUBIN,TOTAL 0.8 mg/dl (0.2-1.3); CALCIUM 9.2 mg/dl (8.4-10.2); CREATININE 0.41 mg/dl (0.44-1.00); TOTAL PROTEIN 5.8 g/dl (6.1-8.1)
[2016-03-12 06:36] LABS: IRON 92 ug/dl (35-150)
[2016-03-12 06:47] LABS: TOTAL IRON BINDING CAPACITY 143 ug/dl (241-421)
[2016-03-12 07:00] LABS: CONDITION 1; LH ANALYZER COMMENTS 1
[2016-03-12] MEDS: SOD CHLORIDE 0.9% 1,000 ML IV SCH ×3 (07:00→23:52)
[2016-03-12 07:45] VITALS: BP 124/68; RESP 16
[2016-03-12] MEDS: COLLAGENASE 30 GM TUBE TOP SCH (09:24)
[2016-03-12] MEDS: FOLIC ACID 1 MG TAB PO SCH (09:25)
[2016-03-12] MEDS: morphine (ER) 15 MG TAB PO SCH ×2 (09:25→21:29)
[2016-03-12] MEDS: FAMOTIDINE 20 MG INJ IV SCH (09:25)
--- NOTE | 2016-03-12 09:28 | CONS ---
Date/Time of Note Date/Time of Note DATE: 03/12/16 TIME: 09:27 Assessment/Plan Assessment/Plan Chief Complaint/Hosp Course 61 year old woman with metastatic spindle cell renal cell carcinoma with invasion of the left renal vein and retroperitoneal lymphadenopathy, and suspicion for adrenal metastasis, skeletal metastases and pulmonary metastases, previously admitted for GIB bleed, now with progressive weakness and anemia. New CT scan shows large renal renal mass, multiple RP LAD, osseous mets, small pulm mets, left adrenal met, mostly unchanged on CAT scan except for more prominent left rib metastatic lesion. She had not been restarted on sutent since discharge as unable to see Dr. Bejarano due to lack of transportation. - She was readmitted with acute on chronic anemia with Hgb 7.3, transfused to 9.8 and now 8.8, and severe weakness with no signs of acute bleeding. Iron panel does not suggest iron deficiency, retic count very low at 10K indicating inappropriate bone marrow response, LDH/ferritin/B12/fol pending. - Due to poor [place] ECOG 4, further therapy with sutent may do more harm than good. Although not chemotherapy, oral TKIs may have side effects including hand -foot syndrome, fatigue, diarrhea, hypertension, mucositis that may be difficult for her to manage in her weakened state. I have discussed the case with her daughter Bev ([phone]) who will will decide potentially for hospice/palliative care pending further thought and discussion with her . I have also notified Dr. Bejarano of her admission. Problems: Consultation Date/Type/Reason Admit Date/Time Mar 10, 2016 at 13:34 Type of Consultation: Hematology/Oncology 24 HR Interval Summary Free Text/Dictation Patient has significant pain in her abdomen, back and total body. Exam/Review of Systems Vital Signs Vitals Vital Signs Date Time Temp Pulse Resp B/P Pulse Ox O2 Delivery O2 Flow Rate FiO2 03/12/16 07:45 98.5 95 16 124/68 97 03/10/16 19:53 Room Air Intake and Output 03/11/16 03/11/16 03/12/16 15:00 23:00 07:00 Intake Total 1480 ml 1120 ml Balance 1480 ml 1120 ml Exam Constitutional: distress, frail, non-verbal Psych: confusion Head: atraumatic, normocephalic Eyes: nl conjunctiva Neck: non-tender, supple Respiratory: clear to auscultation Cardiovascular: regular rate and rhythm Gastrointestinal: soft, tender Musculoskeletal: nl extremities to inspection Results Result Diagram: 03/12/16 0500 03/12/16 0500 Results 24 hrs Laboratory Tests Test 03/11/16 12:26 03/11/16 15:33 03/11/16 17:48 03/11/16 20:53 Bedside Glucose 143 138 143 Absolute Reticulocyte Count 0.020 Hematocrit 29.4 L Hemoglobin 9.7 L Percent Reticulocyte Count 0.6 Test 03/12/16 05:00 03/12/16 08:15 Absolute Reticulocyte Count 0.010 L Alanine Aminotransferase (ALT/SGPT) 19 Albumin 2.5 L Albumin/Globulin Ratio 0.75 Alkaline Phosphatase 82 Anion Gap 15 Aspartate Amino Transf (AST/SGOT) 13 L Basophils # 0.0 Basophils % 0.3 Blood Morphology Comment Blood Urea Nitrogen 12 Calcium Level 9.2 Carbon Dioxide Level 29 Chloride Level 97 Creatinine 0.41 L Direct Bilirubin 0.00 Eosinophils # 0.0 Eosinophils % 0.6 Globulin 3.30 H Glucose Level 126 Hematocrit 25.9 L Hemoglobin 8.8 L Indirect Bilirubin 0.8 Iron Level 92 Lymphocytes # 0.8 Lymphocytes % 11.0 L Magnesium Level 1.7 Mean Corpuscular Hemoglobin 29.3 Mean Corpuscular Hemoglobin Concent 33.9 Mean Corpuscular Volume 86.5 Mean Platelet Volume 6.2 L Monocytes # 0.6 Monocytes % 7.6 Neutrophils # 5.9 Neutrophils % 80.5 H Nucleated Red Blood Cells # 0.0 Nucleated Red Blood Cells % 0.0 Percent Iron Saturation 64 H Percent Reticulocyte Count 0.3 L Phosphorus Level 2.4 L Platelet Count 207 Potassium Level 3.6 Red Blood Count 2.99 L Red Cell Distribution Width 15.8 H Sodium Level 137 Total Bilirubin 0.8 Total Iron Binding Capacity 143 L Total Protein 5.8 L White Blood Count 7.4 Bedside Glucose 145 Medications Medications Current Medications Folic Acid (Folic Acid) 5 mg DAILY PO Last administered on 03/12/16 09:25; Admin Dose 5 MG; Start 03/11/16 at 09:00 Morphine Sulfate (Ms Contin (Er)) 15 mg Q12 PO Last administered on 03/12/16 09 :25; Admin Dose 15 MG; Start 03/10/16 at 15:00 Oxycodone HCl 10 mg 10 mg Q4H PRN PO PAIN; Start 03/10/16 at 15:00 Sodium Chloride (NS) 1,000 ml @ 75 mls/hr [id number] IV Last administered on 07:00; Admin Dose 75 MLS/HR; Start 03/10/16 at 14:41 Ondansetron HCl (Zofran Inj) 4 mg Q6H PRN IV NAUSEA AND/OR VOMITING; Start at 15:00 Acetaminophen (Tylenol Tab) 650 mg Q6H PRN PO PAIN LEVEL 1-3 OR FEVER; Start at 15:00 Morphine Sulfate (morphine) 2 mg Q4H PRN IV SEVERE PAIN LEVEL 7-10 Last administered on 03/11/16 12:28; Admin Dose 2 MG; Start 03/10/16 at 15:00 Docusate Sodium (Colace) 100 mg Q12H PRN PO CONSTIPATION; Start 03/10/16 at 15: 00 Magnesium Hydroxide (Milk Of Mag) 30 ml DAILY PRN PO CONSTIPATION; Start at 15:00 Bisacodyl (Dulcolax Supp) 10 mg DAILY PRN [place] CONSTIPATION; Start 03/10/16 at 15 :00 Famotidine (Pepcid Iv) 20 mg DAILY IV Last administered on 03/12/16 09:25; Admin Dose 20 MG; Start 03/10/16 at 21:00 Miscellaneous Information 1 ea NOTE XX ; Start 03/10/16 at 16:00 Glucose (Glutose) 15 gm Q15M PRN PO DECREASED GLUCOSE; Start 03/10/16 at 16:00 Glucose (Glutose) 22.5 gm Q15M PRN PO DECREASED GLUCOSE; Start 03/10/16 at 16: 00 Dextrose (D50w Syringe) 25 ml Q15M PRN IV DECREASED GLUCOSE; Start 03/10/16 at 16:00 Dextrose (D50w Syringe) 50 ml Q15M PRN IV DECREASED GLUCOSE; Start 03/10/16 at 16:00 Glucagon (Glucagen) 1 mg Q15M PRN IM DECREASED GLUCOSE; Start 03/10/16 at 16:00 Glucose (Glutose) 15 gm Q15M PRN BUCCAL DECREASED GLUCOSE; Start 03/10/16 at 16 :00 Collagenase (Santyl) 1 applic DAILY TOP Last administered on 03/12/16t 09:24; Admin Dose 1 APPLIC; Start 03/11/16 at 15:30 TO,ROSENDA Benjamin MD Mar 12, 2016 09:28
[2016-03-12] MEDS: ONDANSETRON 4 MG INJ IV PRN (10:51)
[2016-03-12] MEDS: INSULIN ASPART [NOVOLOG] 3 ML PEN SC SCH ×4 (11:12→21:00)
[2016-03-12 13:18] LABS: FOLATE 19.8 ng/ml (2.8-20.0)
--- NOTE | 2016-03-12 16:01 | PN ---
Date/Time of Note Date/Time of Note DATE: 03/12/16 TIME: 15:45 Assessment/Plan VTE Prophylaxis VTE Prophylaxis Intervention: SCD's Lines/Catheters IV Catheter Type (from Nrs): Peripheral IV Urinary Cath still in place: No Assessment/Plan Assessment/Plan 61-year-old, unfortunate female with: 1. Acute on chronic anemia, severely symptomatic with lethargy, generalized weakness. Poorly functioning bone marrow based on low retic count Hb down to 8.8 Extremely poor prognosis Appreciate all recommendations from Oncology, continue supportive care but need to move to Palliative/hospice care 2. 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 Mostly unchanged on CAT scan except for more prominent left rib metastatic lesion. Extremely poor overall functional status, pain likely related to large mass and bone mets Per Oncology, patient really has no chemotherapeutic options good enough currently and should consider palliative/hospice care at least will need it for pain control and comfort care Continue MS Contin and oxycodone for pain control 3. Hypertension. Currently hypotensive and hypovolemic, hold Atenolol. 4. Diabetes mellitus: Sliding scale insulin, she will be started on clear liquid diet. 5. Lethargic, generalized weakness, secondary anemia and metastatic carcinoma. Monitor h/h and needs to go on comfort measures Prophylaxis. Protonix for gastrointestinal prophylaxis. SCDs to lower extremity for deep vein thrombosis prophylaxis. Disposition: Appreciate Oncology recommendations, Awaiting palliative care/ hospice OK from Daughter. Subjective 24 Hr Interval Summary Free Text/Dictation Patient severely weak and in pain from metastatic carcinoma and bone mets Patient has no good chemotherapeutic option and needs palliation and comfort measures, so current recommendation is for hospice Exam/Review of Systems Vital Signs Vitals Vital Signs Date Time Temp Pulse Resp B/P Pulse Ox O2 Delivery O2 Flow Rate FiO2 03/12/16 07:45 98.5 95 16 124/68 97 03/10/16 19:53 Room Air Intake and Output 03/11/16 03/11/16 03/12/16 15:00 23:00 07:00 Intake Total 1480 ml 1120 ml Balance 1480 ml 1120 ml Exam Constitutional: alert, frail, obese Respiratory: clear to auscultation, normal air movement Cardiovascular: nl pulses, regular rate and rhythm Gastrointestinal: soft, tender (left abdo ) Musculoskeletal: nl extremities to inspection Extremities: other (some anasarca ) 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: MACHINE RIVETER II-XII intact, lethargic, other (severe generalised weakness ) Results Result Diagram: 03/12/16 0500 03/12/16 0500 Results 24 hrs Laboratory Tests Test 03/11/16 17:48 03/11/16 20:53 03/12/16 05:00 03/12/16 08:15 Bedside Glucose 138 143 145 Absolute Reticulocyte Count 0.010 L Alanine Aminotransferase (ALT/SGPT) 19 Albumin 2.5 L Albumin/Globulin Ratio 0.75 Alkaline Phosphatase 82 Anion Gap 15 Aspartate Amino Transf (AST/SGOT) 13 L Basophils # 0.0 Basophils % 0.3 Blood Morphology Comment Blood Urea Nitrogen 12 Calcium Level 9.2 Carbon Dioxide Level 29 Chloride Level 97 Creatinine 0.41 L Direct Bilirubin 0.00 Eosinophils # 0.0 Eosinophils % 0.6 Ferritin 2770.0 H Folate 19.8 Globulin 3.30 H Glucose Level 126 Hematocrit 25.9 L Hemoglobin 8.8 L Indirect Bilirubin 0.8 Iron Level 92 Lactate Dehydrogenase 480 Lymphocytes # 0.8 Lymphocytes % 11.0 L Magnesium Level 1.7 Mean Corpuscular Hemoglobin 29.3 Mean Corpuscular Hemoglobin Concent 33.9 Mean Corpuscular Volume 86.5 Mean Platelet Volume 6.2 L Monocytes # 0.6 Monocytes % 7.6 Neutrophils # 5.9 Neutrophils % 80.5 H Nucleated Red Blood Cells # 0.0 Nucleated Red Blood Cells % 0.0 Percent Iron Saturation 64 H Percent Reticulocyte Count 0.3 L Phosphorus Level 2.4 L Platelet Count 207 Potassium Level 3.6 Red Blood Count 2.99 L Red Cell Distribution Width 15.8 H Sodium Level 137 Total Bilirubin 0.8 Total Iron Binding Capacity 143 L Total Protein 5.8 L Vitamin B12 Level 439 White Blood Count 7.4 Test 03/12/16 12:01 Bedside Glucose 150 Medications Medications Current Medications Folic Acid (Folic Acid) 5 mg DAILY PO Last administered on 03/12/16 09:25; Admin Dose 5 MG; Start 03/11/16 at 09:00 Morphine Sulfate (Ms Contin (Er)) 15 mg Q12 PO Last administered on 03/12/16 09 :25; Admin Dose 15 MG; Start 03/10/16 at 15:00 Oxycodone HCl 10 mg 10 mg Q4H PRN PO PAIN; Start 03/10/16 at 15:00 Sodium Chloride (NS) 1,000 ml @ 75 mls/hr [id number] IV Last administered on 07:00; Admin Dose 75 MLS/HR; Start 03/10/16 at 14:41 Ondansetron HCl (Zofran Inj) 4 mg Q6H PRN IV NAUSEA AND/OR VOMITING Last administered on 03/12/16 10:51; Admin Dose 4 MG; Start 03/10/16 at 15:00 Acetaminophen (Tylenol Tab) 650 mg Q6H PRN PO PAIN LEVEL 1-3 OR FEVER; Start at 15:00 Morphine Sulfate (morphine) 2 mg Q4H PRN IV SEVERE PAIN LEVEL 7-10 Last administered on 03/11/16 12:28; Admin Dose 2 MG; Start 03/10/16 at 15:00 Docusate Sodium (Colace) 100 mg Q12H PRN PO CONSTIPATION; Start 03/10/16 at 15: 00 Magnesium Hydroxide (Milk Of Mag) 30 ml DAILY PRN PO CONSTIPATION; Start at 15:00 Bisacodyl (Dulcolax Supp) [address] CONSTIPATION; Start 03/10/16 at 15 :00 Famotidine (Pepcid Iv) 20 mg DAILY IV Last administered on 03/12/16 09:25; Admin Dose 20 MG; Start 03/10/16 at 21:00 Miscellaneous Information 1 ea NOTE XX ; Start 03/10/16 at 16:00 Glucose (Glutose) 15 gm Q15M PRN PO DECREASED GLUCOSE; Start 03/10/16 at 16:00 Glucose (Glutose) 22.5 gm Q15M PRN PO DECREASED GLUCOSE; Start 03/10/16 at 16: 00 Dextrose (D50w Syringe) 25 ml Q15M PRN IV DECREASED GLUCOSE; Start 03/10/16 at 16:00 Dextrose (D50w Syringe) 50 ml Q15M PRN IV DECREASED GLUCOSE; Start 03/10/16 at 16:00 Glucagon (Glucagen) 1 mg Q15M PRN IM DECREASED GLUCOSE; Start 03/10/16 at 16:00 Glucose (Glutose) 15 gm Q15M PRN BUCCAL DECREASED GLUCOSE; Start 03/10/16 at 16 :00 Collagenase (Santyl) 1 applic DAILY TOP Last administered on 03/12/16t 09:24; Admin Dose 1 APPLIC; Start 03/11/16 at 15:30 JOSE TORIBIO Mar 12, 2016 15:58
[2016-03-12] MEDS ORDERED: MAGNESIUM SULFATE 2 GM/50 ML 50 ML IVPB ONE (17:00)
[2016-03-12 19:12] VITALS: BP 141/67; RESP 20
[2016-03-13 06:25] LABS: POTASSIUM 3.3 mmol/L (3.5-5.1)
[2016-03-13 06:28] LABS: CALCIUM 8.8 mg/dl (8.4-10.2); CREATININE 0.38 mg/dl (0.44-1.00)
[2016-03-13] MEDS: ONDANSETRON 4 MG INJ IV PRN (06:57)
[2016-03-13 07:31] VITALS: BP 134/71; RESP 20
[2016-03-13] MEDS: INSULIN ASPART [NOVOLOG] 3 ML PEN SC SCH ×4 (08:15→21:00)
[2016-03-13 08:16] LABS: BASOPHILS % 0.1 % (0.0-2.0); EOSINOPHILS % 0.3 % (0.0-7.0); HEMATOCRIT 26.2 % (37.0-47.0); HEMOGLOBIN 8.8 g/dl (12.0-16.0); LYMPHOCYTES # 0.8 10^3/ul (0.8-2.9); LYMPHOCYTES % 10.2 % (15.0-51.0); MEAN CORPUSCULAR HEMOGLOBIN 28.8 pg (29.0-33.0); MEAN CORPUSCULAR HGB CONC 33.5 g/dl (32.0-37.0); MEAN CORPUSCULAR VOLUME 86.1 fl (82.0-101.0); MEAN PLATELET VOLUME 6.3 fl (7.4-10.4); MONOCYTE # 0.6 10^3/ul (0.3-0.9); MONOCYTES % 7.5 % (0.0-11.0); NEUTROPHIL # 6.6 10^3/ul (1.6-7.5); NEUTROPHILS % 81.9 % (39.0-77.0); PLATELET COUNT 200 10^3/UL (140-440); RED BLOOD COUNT 3.04 10^6/ul (4.20-5.40); UNCORRECTED WBC 8.1 10^3/ul (4.8-10.8); WHITE BLOOD COUNT 8.1 10^3/ul (4.8-10.8)
[2016-03-13 08:53] LABS: CONDITION 1; LH ANALYZER COMMENTS 1
[2016-03-13] MEDS: COLLAGENASE 30 GM TUBE TOP SCH (09:09)
[2016-03-13] MEDS: FAMOTIDINE 20 MG INJ IV SCH (09:09)
[2016-03-13] MEDS: FOLIC ACID 1 MG TAB PO SCH (09:09)
[2016-03-13] MEDS: morphine (ER) 15 MG TAB PO SCH ×2 (09:10→20:35)
[2016-03-13] MEDS: SOD CHLORIDE 0.9% 1,000 ML IV SCH ×2 (09:21→20:35)
--- NOTE | 2016-03-13 09:25 | CONS ---
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 New CT scan shows large renal renal mass, multiple RP LAD, osseous mets, small pulm mets, left adrenal met, mostly unchanged on CAT scan except for more prominent left rib metastatic lesion. She had not been restarted on sutent since discharge as unable to see Dr. Bejarano due to lack of transportation. - She was readmitted with acute on chronic anemia with Hgb 7.3, transfused to 9.8 and now 8.8, and severe weakness with no signs of acute bleeding. Iron panel does not suggest iron deficiency, elevated ferritin suggests chronic inflammation, retic count very low at 10K indicating inappropriate bone marrow response, LDH/B12/fol within normal limits. - Due to poor PS ECOG 4, further therapy with sutent may do more harm than good. Although not chemotherapy, oral TKIs may have side effects including hand -foot syndrome, fatigue, diarrhea, hypertension, mucositis that may be difficult for her to manage in her weakened state. I have discussed the case with her daughter Bev ([phone]). Patient now DNR and open to talking to hospice/palliative care agencies. Problems: Consultation Date/Type/Reason Admit Date/Time Mar 10, 2016 at 13:34 Type of Consultation: Hematology/Oncology 24 HR Interval Summary Free Text/Dictation Patient states that she feels "sick to her stomach" and continues to have abdominal and back pain. Exam/Review of Systems Vital Signs Vitals Vital Signs Date Time Temp Pulse Resp B/P Pulse Ox O2 Delivery O2 Flow Rate FiO2 03/13/16 07:31 98.0 100 20 134/71 97 03/10/16 19:53 Room Air Intake and Output 03/12/16 03/12/16 03/13/16 15:00 23:00 07:00 Intake Total 870 ml 940 ml Balance 870 ml 940 ml Exam Constitutional: distress, frail, non-verbal Psych: confusion Head: atraumatic, normocephalic Eyes: nl conjunctiva Neck: non-tender, supple Respiratory: clear to auscultation Cardiovascular: regular rate and rhythm Gastrointestinal: soft, tender Musculoskeletal: nl extremities to inspection Results Result Diagram: 03/13/16 0530 03/13/16 0545 Results 24 hrs Laboratory Tests Test 03/12/16 12:01 03/12/16 17:28 03/12/16 21:31 03/13/16 05:30 Bedside Glucose 150 122 140 Basophils # 0.0 Basophils % 0.1 Blood Morphology Comment Eosinophils # 0.0 Eosinophils % 0.3 Hematocrit 26.2 L Hemoglobin 8.8 L Lymphocytes # 0.8 Lymphocytes % 10.2 L Magnesium Level 2.2 Mean Corpuscular Hemoglobin 28.8 L Mean Corpuscular Hemoglobin Concent 33.5 Mean Corpuscular Volume 86.1 Mean Platelet Volume 6.3 L Monocytes # 0.6 Monocytes % 7.5 Neutrophils # 6.6 Neutrophils % 81.9 H Nucleated Red Blood Cells # 0.0 Nucleated Red Blood Cells % 0.0 Platelet Count 200 Red Blood Count 3.04 L Red Cell Distribution Width 16.0 H White Blood Count 8.1 Test 03/13/16 05:45 03/13/16 07:49 Anion Gap 15 Blood Urea Nitrogen 10 Calcium Level 8.8 Carbon Dioxide Level 26 Chloride Level 99 Creatinine 0.38 L Glucose Level 130 Potassium Level 3.3 L Sodium Level 137 Bedside Glucose 135 Medications Medications Current Medications Folic Acid (Folic Acid) 5 mg DAILY PO Last administered on 03/13/16 09:09; Admin Dose 5 MG; Start 03/11/16 at 09:00 Morphine Sulfate (Ms Contin (Er)) 15 mg Q12 PO Last administered on 03/13/16 09 :10; Admin Dose 15 MG; Start 03/10/16 at 15:00 Oxycodone HCl 10 mg 10 mg Q4H PRN PO PAIN; Start 03/10/16 at 15:00 Sodium Chloride (NS) 1,000 ml @ 75 mls/hr [id number] IV Last administered on 23:52; Admin Dose 75 MLS/HR; Start 03/10/16 at 14:41 Ondansetron HCl (Zofran Inj) 4 mg Q6H PRN IV NAUSEA AND/OR VOMITING Last administered on 03/13/16 06:57; Admin Dose 4 MG; Start 03/10/16 at 15:00 Acetaminophen (Tylenol Tab) 650 mg Q6H PRN PO PAIN LEVEL 1-3 OR FEVER; Start at 15:00 Morphine Sulfate (morphine) 2 mg Q4H PRN IV SEVERE PAIN LEVEL 7-10 Last administered on 03/11/16 12:28; Admin Dose 2 MG; Start 03/10/16 at 15:00 Docusate Sodium (Colace) 100 mg Q12H PRN PO CONSTIPATION; Start 03/10/16 at 15: 00 Magnesium Hydroxide (Milk Of Mag) 30 ml DAILY PRN PO CONSTIPATION; Start at 15:00 Bisacodyl (Dulcolax Supp) 10 mg DAILY PRN [place] CONSTIPATION; Start 03/10/16 at 15 :00 Famotidine (Pepcid Iv) 20 mg DAILY IV Last administered on 03/13/16 09:09; Admin Dose 20 MG; Start 03/10/16 at 21:00 Miscellaneous Information 1 ea NOTE XX ; Start 03/10/16 at 16:00 Glucose (Glutose) 15 gm Q15M PRN PO DECREASED GLUCOSE; Start 03/10/16 at 16:00 Glucose (Glutose) 22.5 gm Q15M PRN PO DECREASED GLUCOSE; Start 03/10/16 at 16: 00 Dextrose (D50w Syringe) 25 ml Q15M PRN IV DECREASED GLUCOSE; Start 03/10/16 at 16:00 Dextrose (D50w Syringe) 50 ml Q15M PRN IV DECREASED GLUCOSE; Start 03/10/16 at 16:00 Glucagon (Glucagen) 1 mg Q15M PRN IM DECREASED GLUCOSE; Start 03/10/16 at 16:00 Glucose (Glutose) 15 gm Q15M PRN BUCCAL DECREASED GLUCOSE; Start 03/10/16 at 16 :00 Collagenase (Santyl) 1 applic DAILY TOP Last administered on 03/13/16 09:09; Admin Dose 1 APPLIC; Start 03/11/16 at 15:30 ROSENDA MARLOW MD Mar 13, 2016 09:25
[2016-03-13] MEDS ORDERED: VANCOMYCIN IV PER PHARMACY XX SCH (11:30)
[2016-03-13] MEDS ORDERED: VANCOMYCIN 1.75 GM in NS 500 ML IVPB ONE (12:00)
--- NOTE | 2016-03-13 12:41 | PN ---
Date/Time of Note Date/Time of Note DATE: 03/13/16 TIME: 12:10 Assessment/Plan VTE Prophylaxis VTE Prophylaxis Intervention: SCD's Lines/Catheters IV Catheter Type (from Nrsg): Peripheral IV Urinary Cath still in place: No Assessment/Plan Assessment/Plan 61-year-old, unfortunate female with: 1. Acute on chronic anemia, severely symptomatic with lethargy, generalized weakness. Poorly functioning bone marrow based on low retic count Hb stable at 8.8 post transfusion on admission Extremely poor prognosis Appreciate all recommendations from Oncology, continue supportive care but need to move to Palliative/hospice care 2. 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 Mostly unchanged on CAT scan except for more prominent left rib metastatic lesion. Extremely poor overall functional status, pain likely related to large mass and bone mets Per Oncology, patient really has no chemotherapeutic options good enough currently and should consider palliative/hospice care at least will need it for pain control and comfort care Continue MS Contin and oxycodone for pain control DNR now and hospice pending 3. Hypertension. Currently hypotensive and hypovolemic, hold Atenolol. 4. Diabetes mellitus: Sliding scale insulin, she will be started on clear liquid diet. 5. Lethargic, generalized weakness, secondary anemia and metastatic carcinoma. Monitor h/h and needs to go on comfort measures 6. Coag dereck guillen x 2 blood cx, unclear significant so repeat blood cx pending and on Vanco Prophylaxis. Protonix for gastrointestinal prophylaxis. SCDs to lower extremity for deep vein thrombosis prophylaxis. Disposition: Appreciate Oncology recommendations, DNR now and awaiting to sign up with hospice hopefully once OK with Daughter. Subjective 24 Hr Interval Summary Free Text/Dictation Patient remains lethargic with still episodes of nausea and vomiting Hb remains stable DNR now and family agreeable to hospice, Artemio to meet with family today and once signed up plan for SNF placement with Hospice. Blood cx 2/2 with linda guillen, starting Vanco and repeat blood cx pending Exam/Review of Systems Vital Signs Vitals Vital Signs Date Time Temp Pulse Resp B/P Pulse Ox O2 Delivery O2 Flow Rate FiO2 03/13/16 07:31 98.0 100 20 134/71 97 03/10/16 19:53 Room Air Intake and Output 03/12/16 03/12/16 03/13/16 15:00 23:00 07:00 Intake Total 870 ml 940 ml Balance 870 ml 940 ml Exam Constitutional: alert, oriented, other (lethargic ) Respiratory: clear to auscultation, normal air movement Cardiovascular: nl pulses, regular rate and rhythm Gastrointestinal: non-tender, soft Musculoskeletal: nl extremities to inspection, other (no edema, clubbing or cyanosis ) Extremities: normal pulses 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: INSPECTOR PLATING II-XII intact, lethargic, other (generalised weakness ) Results Result Diagram: 03/13/16 0530 03/13/16 0545 Results 24 hrs Laboratory Tests Test 03/12/16 17:28 03/12/16 21:31 03/13/16 05:30 03/13/16 05:45 Bedside Glucose 122 140 Basophils # 0.0 Basophils % 0.1 Blood Morphology Comment Eosinophils # 0.0 Eosinophils % 0.3 Hematocrit 26.2 L Hemoglobin 8.8 L Lymphocytes # 0.8 Lymphocytes % 10.2 L Magnesium Level 2.2 Mean Corpuscular Hemoglobin 28.8 L Mean Corpuscular Hemoglobin Concent 33.5 Mean Corpuscular Volume 86.1 Mean Platelet Volume 6.3 L Monocytes # 0.6 Monocytes % 7.5 Neutrophils # 6.6 Neutrophils % 81.9 H Nucleated Red Blood Cells # 0.0 Nucleated Red Blood Cells % 0.0 Platelet Count 200 Red Blood Count 3.04 L Red Cell Distribution Width 16.0 H White Blood Count 8.1 Anion Gap 15 Blood Urea Nitrogen 10 Calcium Level 8.8 Carbon Dioxide Level 26 Chloride Level 99 Creatinine 0.38 L Glucose Level 130 Potassium Level 3.3 L Sodium Level 137 Test 03/13/16 07:49 03/13/16 11:46 Bedside Glucose 135 140 Medications Medications Current Medications Folic Acid (Folic Acid) 5 mg DAILY PO Last administered on 03/13/16 09:09; Admin Dose 5 MG; Start 03/11/16 at 09:00 Morphine Sulfate (Ms Contin (Er)) 15 mg Q12 PO Last administered on 03/13/16 09 :10; Admin Dose 15 MG; Start 03/10/16 at 15:00 Oxycodone HCl 10 mg 10 mg Q4H PRN PO PAIN; Start 03/10/16 at 15:00 Sodium Chloride (NS) 1,000 ml @ 75 mls/hr [id number] IV Last administered on 23:52; Admin Dose 75 MLS/HR; Start 03/10/16 at 14:41 Ondansetron HCl (Zofran Inj) 4 mg Q6H PRN IV NAUSEA AND/OR VOMITING Last administered on 03/13/16 06:57; Admin Dose 4 MG; Start 03/10/16 at 15:00 Acetaminophen (Tylenol Tab) 650 mg Q6H PRN PO PAIN LEVEL 1-3 OR FEVER; Start at 15:00 Morphine Sulfate (morphine) 2 mg Q4H PRN IV SEVERE PAIN LEVEL 7-10 Last administered on 03/11/16 12:28; Admin Dose 2 MG; Start 03/10/16 at 15:00 Docusate Sodium (Colace) 100 mg Q12H PRN PO CONSTIPATION; Start 03/10/16 at 15: 00 Magnesium Hydroxide (Milk Of Mag) 30 ml DAILY PRN PO CONSTIPATION; Start at 15:00 Bisacodyl (Dulcolax Supp) 10 mg DAILY PRN [place] CONSTIPATION; Start 03/10/16 at 15 :00 Famotidine (Pepcid Iv) 20 mg DAILY IV Last administered on 03/13/16 09:09; Admin Dose 20 MG; Start 03/10/16 at 21:00 Miscellaneous Information 1 ea NOTE XX ; Start 03/10/16 at 16:00 Glucose (Glutose) 15 gm Q15M PRN PO DECREASED GLUCOSE; Start 03/10/16 at 16:00 Glucose (Glutose) 22.5 gm Q15M PRN PO DECREASED GLUCOSE; Start 03/10/16 at 16: 00 Dextrose (D50w Syringe) 25 ml Q15M PRN IV DECREASED GLUCOSE; Start 03/10/16 at 16:00 Dextrose (D50w Syringe) 50 ml Q15M PRN IV DECREASED GLUCOSE; Start 03/10/16 at 16:00 Glucagon (Glucagen) 1 mg Q15M PRN IM DECREASED GLUCOSE; Start 03/10/16 at 16:00 Glucose (Glutose) 15 gm Q15M PRN BUCCAL DECREASED GLUCOSE; Start 03/10/16 at 16 :00 Collagenase 1 applic 1 applic DAILY TOP Last administered on 03/13/16 09:09; Admin Dose 1 APPLIC; Start 03/11/16 at 15:30 Vancomycin HCl/ Sodium Chloride (Vancocin/NS) 500 ml @ 125 mls/hr ONCE ONCE IVPB ; Start 03/13/16 at 12:00; Stop 03/13/16 at 15:59 JOSE TORIBIO Mar 13, 2016 12:20
--- NOTE | 2016-03-13 12:47 | PDOCDIS ---
Discharge Instructions CONDITION Patient Condition: Guarded HOME CARE INSTRUCTIONS: Diet Instructions: RegularSpecial Diet: as tolerated ACTIVITY: Activity Restrictions Comment: activity as tolerated FOLLOW UP/APPOINTMENTS Appointments Hospice eval and disposition today if possible JOSE TORIBIO Mar 13, 2016 12:47
[2016-03-13] MEDS ORDERED: VANC750F2 IV (12:48)
[2016-03-13 20:00] VITALS: BP 136/70; PULSE 92; RESP 18
[2016-03-14] MEDS: VANCOMYCIN 750 MG in SOD CHLORIDE 0.9% 150 ML IVPB SCH ×2 (01:42→12:36)
[2016-03-14] MEDS: ONDANSETRON 4 MG INJ IV PRN ×3 (03:15→20:38)
[2016-03-14] MEDS: FOLIC ACID 1 MG TAB PO SCH (08:05)
[2016-03-14] MEDS: INSULIN ASPART [NOVOLOG] 3 ML PEN SC SCH ×4 (08:05→20:41)
[2016-03-14] MEDS: morphine (ER) 15 MG TAB PO SCH ×2 (08:06→21:48)
[2016-03-14] MEDS: FAMOTIDINE 20 MG INJ IV SCH (08:06)
[2016-03-14] MEDS: COLLAGENASE 30 GM TUBE TOP SCH (08:06)
[2016-03-14] MEDS: SOD CHLORIDE 0.9% 1,000 ML IV SCH (12:01)
--- NOTE | 2016-03-14 18:32 | PN ---
Date/Time of Note Date/Time of Note DATE: 03/14/16 TIME: 18:32 Assessment/Plan VTE Prophylaxis VTE Prophylaxis Intervention: SCD's Lines/Catheters [facility] Peripheral IV Urinary Cath still in place: No Assessment/Plan Assessment/Plan [facility] 1. 61-year-old patient of Dr. Pavan Polk with metastatic spindle cell carcinoma with metastases to lung and bone, admitted 03/10/16 with acute-on- chronic anemia, severe lethargy and weakness. Low reticulocyte count, but with stable hematocrit of 26.2% yesterday post-transfusion. Normocytic indices, suggesting this is not iron deficiency. * Continue supportive care with more attention to nausea * Evaluation by [facility] today, though her daughter insisted that the patient herself should not hear the word "hospice." 2. Metastatic spindle cell carcinoma, with large left renal and adrenal masses. Largely unchanged on CT scan of the abdomen except for a more prominent left rib metastatic lesion. No chemotherapy options at this point. * Chief aim is good pain control and comfort care, with MS Contin and oxycodone * DNR and hospice evaluation pending 3. Hypertension history, though only mildly tonight. Was tachycardic due to holding Atenolol and probable dehydration with poor PO intake. * Will give 1L 1/2NS + 20mEq potassium 4. Diabetes mellitus * Sliding scale insulin * Clear liquid diet 5. Coagulase-negative Staph detected in two blood cultures. Bev was not aware of plan to give antibiotics * Dr. Duffy started Vancomycin yesterday. * Sensitivities pending 6. Prophylaxis. * Protonix for gastrointestinal prophylaxis. * SCDs to lower extremity for deep vein thrombosis prevention 7. Disposition: Following Oncology recommendations. DNR now. Plan to formally initiate institutional hospice, per my discussion tonight with her daughter. Caro Moreno MD PhD [phone] Subjective 24 Hr Interval Summary Free Text/Dictation Expressed fearfulness, weakness, but no specific pain including headache or chest pain. No appetite, with moderate periodic nausea. Spoke tonight with her daughter Bev. Exam/Review of Systems Vital Signs Vitals Vital Signs Date Time Temp Pulse Resp B/P Pulse Ox O2 Delivery O2 Flow Rate FiO2 03/13/16 20:00 98.8 92 18 136/70 96 Room Air Intake and Output 03/13/16 03/13/16 03/14/16 15:00 23:00 07:00 Intake Total 1270 ml 670 ml Balance 1270 ml 670 ml Results Result Diagram: 03/13/16 0530 03/13/16 0545 Results 24 hrs Laboratory Tests Test 03/13/16 21:05 03/14/16 08:04 03/14/16 12:09 03/14/16 17:22 Bedside Glucose 145 139 143 139 Medications Medications Current Medications Folic Acid (Folic Acid) 5 mg DAILY PO Last administered on 03/14/16 08:05; Admin Dose 5 MG; Start 03/11/16 at 09:00 Morphine Sulfate (Ms Contin (Er)) 15 mg Q12 PO Last administered on 03/14/16 08 :06; Admin Dose 15 MG; Start 03/10/16 at 15:00 Oxycodone HCl 10 mg 10 mg Q4H PRN PO PAIN; Start 03/10/16 at 15:00 Sodium Chloride (NS) 1,000 ml @ 75 mls/hr [id number] IV Last administered on 20:35; Admin Dose 75 MLS/HR; Start 03/10/16 at 14:41 Ondansetron HCl (Zofran Inj) 4 mg Q6H PRN IV NAUSEA AND/OR VOMITING Last administered on 03/14/16 12:22; Admin Dose 4 MG; Start 03/10/16 at 15:00 Acetaminophen (Tylenol Tab) 650 mg Q6H PRN PO PAIN LEVEL 1-3 OR FEVER; Start at 15:00 Morphine Sulfate (morphine) 2 mg Q4H PRN IV SEVERE PAIN LEVEL 7-10 Last administered on 03/11/16 12:28; Admin Dose 2 MG; Start 03/10/16 at 15:00 Docusate Sodium (Colace) 100 mg Q12H PRN PO CONSTIPATION; Start 03/10/16 at 15: 00 Magnesium Hydroxide (Milk Of Mag) 30 ml DAILY PRN PO CONSTIPATION; Start at 15:00 Bisacodyl (Dulcolax Supp) 10 mg DAILY PRN [place] CONSTIPATION; Start 03/10/16 at 15 :00 Famotidine (Pepcid Iv) 20 mg DAILY IV Last administered on 03/14/16 08:06; Admin Dose 20 MG; Start 03/10/16 at 21:00 Miscellaneous Information 1 ea NOTE XX ; Start 03/10/16 at 16:00 Glucose (Glutose) 15 gm Q15M PRN PO DECREASED GLUCOSE; Start 03/10/16 at 16:00 Glucose (Glutose) 22.5 gm Q15M PRN PO DECREASED GLUCOSE; Start 03/10/16 at 16: 00 Dextrose (D50w Syringe) 25 ml Q15M PRN IV DECREASED GLUCOSE; Start 03/10/16 at 16:00 Dextrose (D50w Syringe) 50 ml Q15M PRN IV DECREASED GLUCOSE; Start 03/10/16 at 16:00 Glucagon (Glucagen) 1 mg Q15M PRN IM DECREASED GLUCOSE; Start 03/10/16 at 16:00 Glucose (Glutose) 15 gm Q15M PRN BUCCAL DECREASED GLUCOSE; Start 03/10/16 at 16 :00 Collagenase 1 applic 1 applic DAILY TOP Last administered on 03/14/16 08:06; Admin Dose 1 APPLIC; Start 03/11/16 at 15:30 Vancomycin HCl/ Sodium Chloride (Vancocin/NS) 150 ml @ 75 mls/hr Q12H IVPB Last administered on 03/14/16 12:36; Admin Dose 75 MLS/HR; Start 03/14/16 at 01: 00 Miscellaneous Information (*Rx Drug Level Order Reminder*) VANCOMYCIN TROUGH 2 5 AT 0000 ONCE ONCE XX ; Start 03/15/16 at 00:00; Stop 03/15/16 at 00:01 MIKE MORENO M.D. Mar 14, 2016 18:32
[2016-03-14 20:04] VITALS: BP 144/75; RESP 16
[2016-03-14] MEDS: morphine 2 MG INJ IV PRN (20:36)
[2016-03-14] MEDS ORDERED: 1/2 NS + KCL 20 MEQ 1,000 ML IV SCH (21:30)
[2016-03-15] MEDS: VANCOMYCIN 750 MG in SOD CHLORIDE 0.9% 150 ML IVPB SCH ×2 (01:20→12:30)
[2016-03-15] MEDS: SOD CHLORIDE 0.9% 1,000 ML IV SCH ×3 (01:21→14:41)
[2016-03-15] MEDS: ONDANSETRON 4 MG INJ IV PRN ×2 (04:15→09:32)
[2016-03-15] MEDS: morphine 2 MG INJ IV PRN (04:15)
[2016-03-15 06:22] LABS: POTASSIUM 3.2 mmol/L (3.5-5.1)
[2016-03-15 06:24] LABS: CREATININE 0.38 mg/dl (0.44-1.00)
[2016-03-15 06:25] LABS: CALCIUM 8.3 mg/dl (8.4-10.2)
[2016-03-15] MEDS: oxyCODONE 5 MG TAB PO PRN ×3 (07:17→22:41)
[2016-03-15 07:57] VITALS: BP 132/74; RESP 20
[2016-03-15] MEDS: INSULIN ASPART [NOVOLOG] 3 ML PEN SC SCH ×4 (08:15→20:32)
[2016-03-15] MEDS: FAMOTIDINE 20 MG INJ IV SCH (09:27)
[2016-03-15] MEDS: COLLAGENASE 30 GM TUBE TOP SCH (09:28)
[2016-03-15] MEDS: FOLIC ACID 1 MG TAB PO SCH (09:28)
[2016-03-15] MEDS: morphine (ER) 15 MG TAB PO SCH ×2 (09:28→20:33)
--- NOTE | 2016-03-15 19:24 | PN ---
DATE: 03/15/2016 SUBJECTIVE: Ms. 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 She was on Sutent, since she was not a candidate for ch emotherapy. Recently, she has been getting increasingly weak and had severe weight loss, as she is eating poorly, as she is now basically bedridden and is unable to walk. She also complains of pain in the abdomen. PHYSICAL EXAMINATION: GENERAL: Shows moderately obese female who shows evidence of recent weight loss. She is alert, marshall ented, but is basically bedridden. VITAL SIGNS: She is afebrile. EARS, NOSE, THROAT: Normal. NECK: Supple without any abnormal masses or pulsations. CHEST: Symmetrical breaths without any lumps. LUNGS: Show distant breath sounds. HEART: Sounds normal. ABDOMEN: Diffusely tender. EXTERNAL GENITALIA: Normal. EXTREMITIES: Showed no edema. LYMPH NODES: No peripheral lymphadenopathy. CENTRAL NERVOUS SYSTEM: Higher function, speech, cranial nerves normal. She has generalized muscle weakness and is unable to sit up or stand up. LABORATORY DATA: Her CBC shows a normal WBC and platelets, but hemoglobin is 8.8 and is stable. Cr eatinine is 0.8. Her LFTs are normal. IMPRESSION: 1. 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 2. Severe weakness and anorexia. PLAN AND DISCUSSION: This patient certainly is not a candidate for any further treatment, including even Sutent tablets. She obviously has progressed. Her performance status is poor and is 4. I ag ree that she should be considered for hospice. Thanks again very much. Dictated By: LITA LANG MD PC/NTS Conf#: [id number] DID#: [id number] CC: JOSE TORIBIO MD;*End*
[2016-03-15 19:52] VITALS: BP 115/57; RESP 16
--- NOTE | 2016-03-15 23:38 | PN ---
Date/Time of Note Date/Time of Note DATE: 03/15/16 TIME: 23:36 Assessment/Plan VTE Prophylaxis VTE Prophylaxis Intervention: SCD's Lines/Catheters [facility]from [facility] Peripheral IV Urinary Cath still in place: No Assessment/Plan Assessment/Plan [facility] 1. 61-year-old patient of Dr. 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 Low reticulocyte count, but with stable hematocrit. Post-transfusion two days ago. * Continue supportive care with more attention to nausea * I discussed the evaluation by [facility] yesterday with Leticia ), who said she had received approval for inpatient hospice at [facility]. But daughter Bev had reservations; searching for other options. 2. Metastatic spindle cell carcinoma, with large left renal and adrenal masses. Largely unchanged on CT scan of the abdomen except for a more prominent left rib metastatic lesion. No chemotherapy options at this point. * Chief aim is good pain control and comfort care, with MS Contin and oxycodone * DNR and hospice evaluation pending 3. Hypertension history, though only mildly tonight. Was tachycardic due to holding Atenolol and probable dehydration with poor PO intake.Gave 1L 1/2NS + 20mEq potassium last night, with good response (tachycardia resolved). * Encourage POs as much as possible 4. Diabetes mellitus * Sliding scale insulin * Clear liquid diet 5. Coagulase-negative Staph detected in two blood cultures. Bev was not aware of plan to give antibiotics * Dr. Duffy started Vancomycin Wednesday; [facility] expressed reservations about continuing in hospice * Sensitivities pending, and will anticipate switching to PO antibiotics before discharge. 6. Prophylaxis. * Protonix for gastrointestinal prophylaxis. * SCDs to lower extremity for deep vein thrombosis prevention 7. Disposition: Following Oncology recommendations. DNR now. Inpatient hospice anticipated, with transfer hopefully tomorrow. Caro Moreno MD PhD [phone] Subjective 24 Hr Interval Summary Free Text/Dictation Alone the several times I looked in on her. Feeling weak, but not so nauseated today. Again expressed some fear. No pain. Exam/Review of Systems Vital Signs Vitals Vital Signs Date Time Temp Pulse Resp B/P Pulse Ox O2 Delivery O2 Flow Rate FiO2 03/15/16 19:52 98.0 100 16 115/57 96 03/13/16 20:00 Room Air Intake and Output 03/14/16 03/14/16 03/15/16 15:00 23:00 07:00 Intake Total 715 ml 960 ml Balance 715 ml 960 ml Exam Constitutional: distress, frail, obese Psych: depression Head: atraumatic, normocephalic Eyes: EOMI, PERRL, nl conjunctiva, nl sclera ENMT: mucosa pink and moist Neck: non-tender, supple, No bruits, No jvd, No masses, No nuchal rigidity, No thyromegaly Respiratory: clear to auscultation, normal air movement Cardiovascular: nl pulses, regular rate and rhythm Gastrointestinal: nl liver, spleen, non-tender, soft Extremities: normal pulses 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: 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 intact, nl mental status, nl speech, nl strength Skin: other (pale) Results Result Diagram: 03/13/16 0530 03/15/16 0506 Results 24 hrs Laboratory Tests Test 03/15/16 00:46 03/15/16 05:06 03/15/16 07:56 03/15/16 11:53 Vancomycin Level Trough 14.1 Anion Gap 13 Blood Urea Nitrogen 8 Calcium Level 8.3 L Carbon Dioxide Level 27 Chloride Level 99 Creatinine 0.38 L Glucose Level 122 Potassium Level 3.2 L Sodium Level 136 Bedside Glucose 128 115 Test 03/15/16 17:23 03/15/16 20:31 Bedside Glucose 111 104 Medications Medications Current Medications Folic Acid (Folic Acid) 5 mg DAILY PO Last administered on 03/15/16 09:28; Admin Dose 5 MG; Start 03/11/16 at 09:00 Morphine Sulfate (Ms Contin (Er)) 15 mg Q12 PO Last administered on 03/15/16 20 :33; Admin Dose 15 MG; Start 03/10/16 at 15:00 Oxycodone HCl 10 mg 10 mg Q4H PRN PO PAIN Last administered on 03/15/16 22:41; Admin Dose 10 MG; Start 03/10/16 at 15:00 Sodium Chloride (NS) 1,000 ml @ 75 mls/hr [id number] IV Last administered on 12:30; Admin Dose 75 MLS/HR; Start 03/10/16 at 14:41 Ondansetron HCl (Zofran Inj) 4 mg Q6H PRN IV NAUSEA AND/OR VOMITING Last administered on 03/15/16 09:32; Admin Dose 4 MG; Start 03/10/16 at 15:00 Acetaminophen (Tylenol Tab) 650 mg Q6H PRN PO PAIN LEVEL 1-3 OR FEVER; Start at 15:00 Morphine Sulfate (morphine) 2 mg Q4H PRN IV SEVERE PAIN LEVEL 7-10 Last administered on 03/15/16 04:15; Admin Dose 2 MG; Start 03/10/16 at 15:00 Docusate Sodium (Colace) 100 mg Q12H PRN PO CONSTIPATION; Start 03/10/16 at 15: 00 Magnesium Hydroxide (Milk Of Mag) 30 ml DAILY PRN PO CONSTIPATION; Start at 15:00 Bisacodyl (Dulcolax Supp) 10 mg DAILY PRN [place] CONSTIPATION; Start 03/10/16 at 15 :00 Miscellaneous Information 1 ea NOTE XX ; Start 03/10/16 at 16:00 Glucose (Glutose) 15 gm Q15M PRN PO DECREASED GLUCOSE; Start 03/10/16 at 16:00 Glucose (Glutose) 22.5 gm Q15M PRN PO DECREASED GLUCOSE; Start 03/10/16 at 16: 00 Dextrose (D50w Syringe) 25 ml Q15M PRN IV DECREASED GLUCOSE; Start 03/10/16 at 16:00 Dextrose (D50w Syringe) 50 ml Q15M PRN IV DECREASED GLUCOSE; Start 03/10/16 at 16:00 Glucagon (Glucagen) 1 mg Q15M PRN IM DECREASED GLUCOSE; Start 03/10/16 at 16:00 Glucose (Glutose) 15 gm Q15M PRN BUCCAL DECREASED GLUCOSE; Start 03/10/16 at 16 :00 Collagenase 1 applic 1 applic DAILY TOP Last administered on 03/15/16 09:28; Admin Dose 1 APPLIC; Start 03/11/16 at 15:30 Vancomycin HCl/ Sodium Chloride (Vancocin/NS) 150 ml @ 75 mls/hr Q12H IVPB Last administered on 03/15/16 12:30; Admin Dose 75 MLS/HR; Start 03/14/16 at 01: 00 Famotidine (Pepcid) 20 mg DAILY PO ; Start 03/16/16 at 09:00 MIKE MORENO M.D. Mar 15, 2016 23:37
[2016-03-16] MEDS: VANCOMYCIN 750 MG in SOD CHLORIDE 0.9% 150 ML IVPB SCH ×2 (00:34→12:18)
[2016-03-16] MEDS: SOD CHLORIDE 0.9% 1,000 ML IV SCH ×4 (04:01→21:36)
[2016-03-16] MEDS: oxyCODONE 5 MG TAB PO PRN ×2 (05:24→12:18)
[2016-03-16 07:54] VITALS: BP 120/62; RESP 19
[2016-03-16] MEDS: INSULIN ASPART [NOVOLOG] 3 ML PEN SC SCH ×4 (08:15→21:00)
[2016-03-16] MEDS: FAMOTIDINE 20 MG TAB PO SCH (09:10)
[2016-03-16] MEDS: FOLIC ACID 1 MG TAB PO SCH (09:10)
[2016-03-16] MEDS: morphine (ER) 15 MG TAB PO SCH (09:10)
[2016-03-16] MEDS: COLLAGENASE 30 GM TUBE TOP SCH (09:11)
[2016-03-16 09:45] LABS: BASOPHILS % 0.2 % (0.0-2.0); EOSINOPHILS # 0.1 10^3/ul (0.0-0.5); EOSINOPHILS % 1.3 % (0.0-7.0); HEMOGLOBIN 7.6 g/dl (12.0-16.0); LYMPHOCYTES # 0.6 10^3/ul (0.8-2.9); LYMPHOCYTES % 11.2 % (15.0-51.0); MEAN CORPUSCULAR HEMOGLOBIN 28.2 pg (29.0-33.0); MEAN CORPUSCULAR HGB CONC 33.1 g/dl (32.0-37.0); MEAN CORPUSCULAR VOLUME 85.3 fl (82.0-101.0); MEAN PLATELET VOLUME 6.1 fl (7.4-10.4); MONOCYTE # 0.4 10^3/ul (0.3-0.9); NEUTROPHIL # 4.2 10^3/ul (1.6-7.5); NEUTROPHILS % 80.3 % (39.0-77.0); PLATELET COUNT 142 10^3/UL (140-440); RED BLOOD COUNT 2.69 10^6/ul (4.20-5.40); RED CELL DISTRIBUTION WIDTH 15.9 % (11.5-14.5); UNCORRECTED WBC 5.2 10^3/ul (4.8-10.8); WHITE BLOOD COUNT 5.2 10^3/ul (4.8-10.8)
[2016-03-16 09:53] LABS: POTASSIUM 3.8 mmol/L (3.5-5.1)
[2016-03-16 09:54] LABS: CONDITION 1; LH ANALYZER COMMENTS 1
[2016-03-16 09:56] LABS: CREATININE 0.38 mg/dl (0.44-1.00)
[2016-03-16 09:57] LABS: CALCIUM 8.4 mg/dl (8.4-10.2)
--- NOTE | 2016-03-16 13:05 | PN ---
Date/Time of Note Date/Time of Note DATE: 03/16/16 TIME: 12:48 Assessment/Plan VTE Prophylaxis VTE Prophylaxis Intervention: SCD's Lines/Catheters IV Catheter Type (from Nrsg): Peripheral IV Urinary Cath still in place: No Assessment/Plan Assessment/Plan 61-year-old, unfortunate female with: 1. Acute on chronic anemia, generalized weakness. Poorly functioning bone marrow based on low retic count Hb stable at 7.6 today but would transfuse only if recommended by Hematology Extremely poor prognosis for underlying widespread spindle cell carcinoma with no appropriate treatment option currently Appreciate all recommendations from Oncology, continue supportive care, Palliative/hospice care 2. 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 Mostly unchanged on CAT scan except for more prominent left rib metastatic lesion. Extremely poor overall functional status, pain likely related to large mass and bone mets, will optimize pain meds Per Oncology, patient really has no chemotherapeutic options good enough currently. Patient now DNR and on hospice with [place]. Titrate MS Contin and oxycodone up for better pain control. 3. Hypertension. Currently normotensive and on IVF. Holding Atenolol. 4. Diabetes mellitus: Sliding scale insulin, soft diet as tolerated 5. Lethargic, generalized weakness, secondary anorexia and metastatic carcinoma. Monitor h/h and on comfort measures now 6. Coag neg staph x 2 blood cx, unclear significant so repeat blood cx NGTD. On Vanco x 5 more days then d/c. Prophylaxis. Protonix for gastrointestinal prophylaxis. SCDs to lower extremity for deep vein thrombosis prophylaxis. Disposition: Appreciate Oncology recommendations, DNR now and on Hospice with [place] awaiting SNF placement for [facility] hospice care. Subjective 24 Hr Interval Summary Free Text/Dictation Patient more awake but feels weak and nauseous and having anorexia. She has severe pain not well controlled Hb down to 7.6 with no acute bleeding Still awaiting placement in a SNF Exam/Review of Systems Vital Signs Vitals Vital Signs Date Time Temp Pulse Resp B/P Pulse Ox O2 Delivery O2 Flow Rate FiO2 03/16/16 07:54 97.7 99 19 120/62 94 03/13/16 20:00 Room Air Intake and Output 03/15/16 03/15/16 03/16/16 15:00 23:00 07:00 Intake Total 1450 ml 350 ml 1330 ml Balance 1450 ml 350 ml 1330 ml Exam Constitutional: alert, oriented, other (obese ) Respiratory: clear to auscultation, normal air movement Cardiovascular: nl pulses, regular rate and rhythm Gastrointestinal: non-tender, soft Musculoskeletal: nl extremities to inspection Extremities: normal pulses, other (no edema, clubbing or cyanosis ) 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: 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 II-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 intact, nl mental status, nl speech, other ( generalized weakness ) Skin: ecchymosis (some diffuse ) Results Result Diagram: 03/16/1691703/16/1618 Results 24 hrs Laboratory Tests Test 03/15/16 17:23 03/15/16 20:31 03/16/16 07:52 03/16/16 09:18 Bedside Glucose 111 104 101 Anion Gap 14 Basophils # 0.0 Basophils % 0.2 Blood Morphology Comment Blood Urea Nitrogen 8 Calcium Level 8.4 Carbon Dioxide Level 26 Chloride Level 99 Creatinine 0.38 L Eosinophils # 0.1 Eosinophils % 1.3 Glucose Level 96 Hematocrit 23.0 L Hemoglobin 7.6 L Lymphocytes # 0.6 L Lymphocytes % 11.2 L Mean Corpuscular Hemoglobin 28.2 L Mean Corpuscular Hemoglobin Concent 33.1 Mean Corpuscular Volume 85.3 Mean Platelet Volume 6.1 L Monocytes # 0.4 Monocytes % 7.0 Neutrophils # 4.2 Neutrophils % 80.3 H Nucleated Red Blood Cells # 0.0 Nucleated Red Blood Cells % 0.0 Platelet Count 142 # Potassium Level 3.8 Red Blood Count 2.69 L Red Cell Distribution Width 15.9 H Sodium Level 135 White Blood Count 5.2 # Medications Medications Current Medications Folic Acid (Folic Acid) 5 mg DAILY PO Last administered on 03/16/16 09:10; Admin Dose 5 MG; Start 03/11/16 at 09:00 Morphine Sulfate (Ms Contin (Er)) 15 mg Q12 PO Last administered on 03/16/16 09 :10; Admin Dose 15 MG; Start 03/10/16 at 15:00 Oxycodone HCl 10 mg 10 mg Q4H PRN PO PAIN Last administered on 03/16/16 12:18; Admin Dose 10 MG; Start 03/10/16 at 15:00 Sodium Chloride (NS) 1,000 ml @ 75 mls/hr [id number] IV Last administered on 05:29; Admin Dose 75 MLS/HR; Start 03/10/16 at 14:41 Ondansetron HCl (Zofran Inj) 4 mg Q6H PRN IV NAUSEA AND/OR VOMITING Last administered on 03/15/16 09:32; Admin Dose 4 MG; Start 03/10/16 at 15:00 Acetaminophen (Tylenol Tab) 650 mg Q6H PRN PO PAIN LEVEL 1-3 OR FEVER; Start at 15:00 Morphine Sulfate (morphine) 2 mg Q4H PRN IV SEVERE PAIN LEVEL 7-10 Last administered on 03/15/16 04:15; Admin Dose 2 MG; Start 03/10/16 at 15:00 Docusate Sodium (Colace) 100 mg Q12H PRN PO CONSTIPATION; Start 03/10/16 at 15: 00 Magnesium Hydroxide (Milk Of Mag) 30 ml DAILY PRN PO CONSTIPATION; Start at 15:00 Bisacodyl (Dulcolax Supp) 10 mg DAILY PRN IN CONSTIPATION; Start 03/10/16 at 15 :00 Miscellaneous Information 1 ea NOTE XX ; Start 03/10/16 at 16:00 Glucose (Glutose) 15 gm Q15M PRN PO DECREASED GLUCOSE; Start 03/10/16 at 16:00 Glucose (Glutose) 22.5 gm Q15M PRN PO DECREASED GLUCOSE; Start 03/10/16 at 16: 00 Dextrose (D50w Syringe) 25 ml Q15M PRN IV DECREASED GLUCOSE; Start 03/10/16 at 16:00 Dextrose (D50w Syringe) 50 ml Q15M PRN IV DECREASED GLUCOSE; Start 03/10/16 at 16:00 Glucagon (Glucagen) 1 mg Q15M PRN IM DECREASED GLUCOSE; Start 03/10/16 at 16:00 Glucose (Glutose) 15 gm Q15M PRN BUCCAL DECREASED GLUCOSE; Start 03/10/16 at 16 :00 Collagenase 1 applic 1 applic DAILY TOP Last administered on 03/16/16 09:11; Admin Dose 1 APPLIC; Start 03/11/16 at 15:30 Vancomycin HCl/ Sodium Chloride (Vancocin/NS) 150 ml @ 75 mls/hr Q12H IVPB Last administered on 03/16/16 12:18; Admin Dose 75 MLS/HR; Start 03/14/16 at 01: 00 Famotidine (Pepcid) 20 mg DAILY PO Last administered on 03/16/16t 09:10; Admin Dose 20 MG; Start 03/16/16 at 09:00 JOSE TORIBIO Mar 16, 2016 13:05
[2016-03-16] MEDS: morphine (ER) 30 MG TAB PO SCH ×2 (14:07→21:36)
--- NOTE | 2016-03-16 14:12 | CONS ---
Date/Time of Note Date/Time of Note DATE: 03/16/16 TIME: 14:08 Assessment/Plan Assessment/Plan Chief Complaint/Hosp Course 61 year old woman with widely metastatic spindle cell renal cell carcinoma with invasion of the left renal vein and retroperitoneal lymphadenopathy, and suspicion for adrenal metastasis, skeletal metastases and pulmonary metastases, previously admitted for GIB bleed, now with progressive weakness and anemia. New CT scan demonstrates progressive disease. - Due to poor PS ECOG 4, further therapy with sutent may do more harm than good. Although not chemotherapy, oral TKIs may have side effects including hand -foot syndrome, fatigue, diarrhea, hypertension, mucositis that may be difficult for her to manage in her weakened state. I have discussed the case with her daughter Bev ([phone]). Patient now DNR and open to talking to hospice/palliative care agencies. -agree with hospice evaluation Problems: Consultation Date/Type/Reason Admit Date/Time Mar 10, 2016 at 13:34 Initial Consult Date 03/11/16 Type of Consultation: Hematology/Oncology Reason for Consultation renal cell carcinoma Referring Provider: JOSE TORIBIO 24 HR Interval Summary Free Text/Dictation pt is very weak. is considering hospice care given she is too weak to undergo any further cancer therapy Exam/Review of Systems Vital Signs Vitals Vital Signs Date Time Temp Pulse Resp B/P Pulse Ox O2 Delivery O2 Flow Rate FiO2 03/16/16 07:54 97.7 99 19 120/62 94 03/13/16 20:00 Room Air Intake and Output 03/15/16 03/15/16 03/16/16 15:00 23:00 07:00 Intake Total 1450 ml 350 ml 1330 ml Balance 1450 ml 350 ml 1330 ml Exam Constitutional: distress, frail Psych: anxiety, depression Head: normocephalic Eyes: nl conjunctiva ENMT: nl external ears & nose Neck: non-tender, supple Respiratory: clear to auscultation Cardiovascular: nl pulses, regular rate and rhythm Gastrointestinal: soft Musculoskeletal: nl extremities to inspection, nl gait and stance Results Result Diagram: 03/16/1618 03/16/1618 Results 24 hrs Laboratory Tests Test 03/15/16 17:23 03/15/16 20:31 03/16/16 07:52 03/16/16 09:18 Bedside Glucose 111 104 101 Anion Gap 14 Basophils # 0.0 Basophils % 0.2 Blood Morphology Comment Blood Urea Nitrogen 8 Calcium Level 8.4 Carbon Dioxide Level 26 Chloride Level 99 Creatinine 0.38 L Eosinophils # 0.1 Eosinophils % 1.3 Glucose Level 96 Hematocrit 23.0 L Hemoglobin 7.6 L Lymphocytes # 0.6 L Lymphocytes % 11.2 L Mean Corpuscular Hemoglobin 28.2 L Mean Corpuscular Hemoglobin Concent 33.1 Mean Corpuscular Volume 85.3 Mean Platelet Volume 6.1 L Monocytes # 0.4 Monocytes % 7.0 Neutrophils # 4.2 Neutrophils % 80.3 H Nucleated Red Blood Cells # 0.0 Nucleated Red Blood Cells % 0.0 Platelet Count 142 # Potassium Level 3.8 Red Blood Count 2.69 L Red Cell Distribution Width 15.9 H Sodium Level 135 White Blood Count 5.2 # Test 03/16/16 12:22 Bedside Glucose 92 Medications Medications Current Medications Folic Acid (Folic Acid) 5 mg DAILY PO Last administered on 03/16/16 09:10; Admin Dose 5 MG; Start 03/11/16 at 09:00 Oxycodone HCl 10 mg 10 mg Q4H PRN PO PAIN Last administered on 03/16/16 12:18; Admin Dose 10 MG; Start 03/10/16 at 15:00 Sodium Chloride (NS) 1,000 ml @ 75 mls/hr [id number] IV Last administered on 05:29; Admin Dose 75 MLS/HR; Start 03/10/16 at 14:41 Ondansetron HCl (Zofran Inj) 4 mg Q6H PRN IV NAUSEA AND/OR VOMITING Last administered on 03/15/16 09:32; Admin Dose 4 MG; Start 03/10/16 at 15:00 Acetaminophen (Tylenol Tab) 650 mg Q6H PRN PO PAIN LEVEL 1-3 OR FEVER; Start at 15:00 Morphine Sulfate (morphine) 2 mg Q4H PRN IV SEVERE PAIN LEVEL 7-10 Last administered on 03/15/16 04:15; Admin Dose 2 MG; Start 03/10/16 at 15:00 Docusate Sodium (Colace) 100 mg Q12H PRN PO CONSTIPATION; Start 03/10/16 at 15: 00 Magnesium Hydroxide (Milk Of Mag) 30 ml DAILY PRN PO CONSTIPATION; Start at 15:00 Bisacodyl (Dulcolax Supp) 10 mg DAILY PRN [place] CONSTIPATION; Start 03/10/16 at 15 :00 Miscellaneous Information 1 ea NOTE XX ; Start 03/10/16 at 16:00 Glucose (Glutose) 15 gm Q15M PRN PO DECREASED GLUCOSE; Start 03/10/16 at 16:00 Glucose (Glutose) 22.5 gm Q15M PRN PO DECREASED GLUCOSE; Start 03/10/16 at 16: 00 Dextrose (D50w Syringe) 25 ml Q15M PRN IV DECREASED GLUCOSE; Start 03/10/16 at 16:00 Dextrose (D50w Syringe) 50 ml Q15M PRN IV DECREASED GLUCOSE; Start 03/10/16 at 16:00 Glucagon (Glucagen) 1 mg Q15M PRN IM DECREASED GLUCOSE; Start 03/10/16 at 16:00 Glucose (Glutose) 15 gm Q15M PRN BUCCAL DECREASED GLUCOSE; Start 03/10/16 at 16 :00 Collagenase 1 applic 1 applic DAILY TOP Last administered on 03/16/16 09:11; Admin Dose 1 APPLIC; Start 03/11/16 at 15:30 Vancomycin HCl/ Sodium Chloride (Vancocin/NS) 150 ml @ 75 mls/hr Q12H IVPB Last administered on 03/16/16 12:18; Admin Dose 75 MLS/HR; Start 03/14/16 at 01: 00 Famotidine (Pepcid) 20 mg DAILY PO Last administered on 03/16/16 09:10; Admin Dose 20 MG; Start 03/16/16 at 09:00 Morphine Sulfate (Ms Contin (Er)) 30 mg Q8 PO ; Start 03/16/16 at 14:00 YAMILKA DELGADO M.D. Mar 16, 2016 14:12
[2016-03-16 20:02] VITALS: BP 139/70; RESP 18
[2016-03-17] MEDS: oxyCODONE 5 MG TAB PO PRN (01:01)
[2016-03-17] MEDS: VANCOMYCIN 750 MG in SOD CHLORIDE 0.9% 150 ML IVPB SCH ×2 (01:01→13:17)
[2016-03-17] MEDS: morphine (ER) 30 MG TAB PO SCH ×4 (06:23→22:02)
[2016-03-17] MEDS: ONDANSETRON 4 MG INJ IV PRN ×2 (06:25→23:15)
[2016-03-17] MEDS: SOD CHLORIDE 0.9% 1,000 ML IV SCH ×2 (06:29→17:13)
[2016-03-17 07:11] VITALS: BP 140/80; RESP 16
[2016-03-17] MEDS: INSULIN ASPART [NOVOLOG] 3 ML PEN SC SCH ×4 (08:15→21:00)
[2016-03-17] MEDS: FOLIC ACID 1 MG TAB PO SCH (09:45)
[2016-03-17] MEDS: FAMOTIDINE 20 MG TAB PO SCH (09:46)
[2016-03-17] MEDS: COLLAGENASE 30 GM TUBE TOP SCH (09:46)
--- NOTE | 2016-03-17 11:47 | PN ---
Date/Time of Note Date/Time of Note DATE: 03/17/16 TIME: 11:45 Assessment/Plan VTE Prophylaxis VTE Prophylaxis Intervention: other (ag) Lines/Catheters IV Catheter Type (from Nrs): Peripheral IV Urinary Cath still in place: No Assessment/Plan Assessment/Plan 1. widely metastatic renal cell Ca 2. symptomatic anemia s/p transfusion 3. will enroll with [facility] at time of hospital dc Subjective 24 Hr Interval Summary Free Text/Dictation patient responds to questions with Ok Exam/Review of Systems Vital Signs Vitals Vital Signs Date Time Temp Pulse Resp B/P Pulse Ox O2 Delivery O2 Flow Rate FiO2 03/17/16 07:11 98.4 111 16 140/80 94 03/13/16 20:00 Room Air Intake and Output 03/16/16 03/16/16 03/17/16 15:00 23:00 07:00 Intake Total 900 ml 510 ml 600 ml Balance 900 ml 510 ml 600 ml Exam Respiratory: clear to auscultation Cardiovascular: regular rate and rhythm Gastrointestinal: other (generally tender) Results Result Diagram: 03/16/1618 03/16/1618 Results 24 hrs Laboratory Tests Test 03/16/16 12:22 03/16/16 17:42 03/16/16 21:41 03/17/16 07:41 Bedside Glucose 92 92 92 99 Test 03/17/16 11:36 Bedside Glucose 105 Medications Medications Current Medications Folic Acid (Folic Acid) 5 mg DAILY PO Last administered on 03/17/16 09:45; Admin Dose 5 MG; Start 03/11/16 at 09:00 Oxycodone HCl 10 mg 10 mg Q4H PRN PO PAIN Last administered on 03/17/16 01:01; Admin Dose 10 MG; Start 03/10/16 at 15:00 Sodium Chloride (NS) 1,000 ml @ 75 mls/hr [id number] IV Last administered on 21:36; Admin Dose 75 MLS/HR; Start 03/10/16 at 14:41 Ondansetron HCl (Zofran Inj) 4 mg Q6H PRN IV NAUSEA AND/OR VOMITING Last administered on 03/17/16 06:25; Admin Dose 4 MG; Start 03/10/16 at 15:00 Acetaminophen (Tylenol Tab) 650 mg Q6H PRN PO PAIN LEVEL 1-3 OR FEVER; Start at 15:00 Morphine Sulfate (morphine) 2 mg Q4H PRN IV SEVERE PAIN LEVEL 7-10 Last administered on 03/15/16 04:15; Admin Dose 2 MG; Start 03/10/16 at 15:00 Docusate Sodium (Colace) 100 mg Q12H PRN PO CONSTIPATION; Start 03/10/16 at 15: 00 Magnesium Hydroxide (Milk Of Mag) 30 ml DAILY PRN PO CONSTIPATION; Start at 15:00 Bisacodyl (Dulcolax Supp) 10 mg DAILY PRN [place] CONSTIPATION; Start 03/10/16 at 15 :00 Miscellaneous Information 1 ea NOTE XX ; Start 03/10/16 at 16:00 Glucose (Glutose) 15 gm Q15M PRN PO DECREASED GLUCOSE; Start 03/10/16 at 16:00 Glucose (Glutose) 22.5 gm Q15M PRN PO DECREASED GLUCOSE; Start 03/10/16 at 16: 00 Dextrose (D50w Syringe) 25 ml Q15M PRN IV DECREASED GLUCOSE; Start 03/10/16 at 16:00 Dextrose (D50w Syringe) 50 ml Q15M PRN IV DECREASED GLUCOSE; Start 03/10/16 at 16:00 Glucagon (Glucagen) 1 mg Q15M PRN IM DECREASED GLUCOSE; Start 03/10/16 at 16:00 Glucose (Glutose) 15 gm Q15M PRN BUCCAL DECREASED GLUCOSE; Start 03/10/16 at 16 :00 Collagenase 1 applic 1 applic DAILY TOP Last administered on 03/17/16 09:46; Admin Dose 1 APPLIC; Start 03/11/16 at 15:30 Vancomycin HCl/ Sodium Chloride (Vancocin/NS) 150 ml @ 75 mls/hr Q12H IVPB Last administered on 03/17/16 01:01; Admin Dose 75 MLS/HR; Start 03/14/16 at 01: 00 Famotidine (Pepcid) 20 mg DAILY PO Last administered on 03/17/16 09:46; Admin Dose 20 MG; Start 03/16/16 at 09:00 Morphine Sulfate (Ms Contin (Er)) 30 mg Q8 PO Last administered on 03/17/16 06: 23; Admin Dose 30 MG; Start 03/16/16 at 14:00 LILIANA WOMACK MD Mar 17, 2016 11:47
[2016-03-17 19:35] VITALS: BP 147/64; RESP 18
[2016-03-17] MEDS: morphine 2 MG INJ IV PRN ×2 (19:50→21:09)
[2016-03-18] MEDS: morphine (ER) 30 MG TAB PO SCH ×3 (05:45→21:42)
[2016-03-18] MEDS: SOD CHLORIDE 0.9% 1,000 ML IV SCH ×2 (05:46→21:42)
[2016-03-18 07:28] VITALS: BP 128/60; RESP 16
[2016-03-18] MEDS: INSULIN ASPART [NOVOLOG] 3 ML PEN SC SCH ×4 (07:56→21:00)
[2016-03-18] MEDS: FOLIC ACID 1 MG TAB PO SCH (08:48)
[2016-03-18] MEDS: COLLAGENASE 30 GM TUBE TOP SCH (08:48)
[2016-03-18] MEDS: FAMOTIDINE 20 MG TAB PO SCH (08:48)
[2016-03-18] MEDS: VANCOMYCIN 500MG/NS (PMX) 100 ML IVPB SCH ×2 (09:28→20:28)
--- NOTE | 2016-03-18 11:18 | PN ---
Date/Time of Note Date/Time of Note DATE: 03/18/16 TIME: 10:52 Assessment/Plan VTE Prophylaxis VTE Prophylaxis Intervention: SCD's Lines/Catheters IV Catheter Type (from Nrsg): Peripheral IV Urinary Cath still in place: No Assessment/Plan Assessment/Plan 61-year-old, unfortunate female with: 1. Acute on chronic anemia, generalized weakness. Poorly functioning bone marrow based on low retic count Only transfuse if recommended by Hematology Extremely poor prognosis for underlying widespread spindle cell carcinoma with no appropriate treatment option currently Appreciate all recommendations from Oncology, continue supportive care, Palliative/hospice care placement still pending Comfort care for now 2. 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 Mostly unchanged on CAT scan except for more prominent left rib metastatic lesion. Extremely poor overall functional status, pain likely related to large mass and bone mets, will optimize pain meds Per Oncology, patient really has no chemotherapeutic options good enough currently. Patient now DNR and on hospice with [facility]. Titrate MS Contin and oxycodone up for better pain control while on Hospice. 3. Hypertension. Currently normotensive. D/c IVF on discharge. 4. Diabetes mellitus: Sliding scale insulin, soft diet as tolerated 5. Lethargic, generalized weakness, secondary anorexia and metastatic carcinoma. Comfort measures now 6. Coag neg staph x 2 blood cx, unclear significant so repeat blood cx NGTD. Discontinue Vanco on 03/22. Prophylaxis. Protonix for gastrointestinal prophylaxis. SCDs to lower extremity for deep vein thrombosis prophylaxis. Disposition: Appreciate Oncology recommendations, DNR now and on Hospice with [facility] awaiting SNF placement for [facility] hospice care. Subjective 24 Hr Interval Summary Free Text/Dictation Patient on comfort measures mainly currently, on Vanco to finish course on 03/22 Awaiting SNF placement once one found by Hospice Exam/Review of Systems Vital Signs Vitals Vital Signs Date Time Temp Pulse Resp B/P Pulse Ox O2 Delivery O2 Flow Rate FiO2 03/18/16 07:28 98.6 105 16 128/60 94 Intake and Output 03/17/16 03/17/16 03/18/16 15:00 23:00 07:00 Intake Total 2265 ml 700 ml Balance 2265 ml 700 ml Exam Constitutional: alert, frail, oriented (x2 ), other (bed bound ) Respiratory: clear to auscultation, normal air movement Cardiovascular: nl pulses, regular rate and rhythm Gastrointestinal: non-tender, soft Musculoskeletal: nl extremities to inspection, other Extremities: normal pulses 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: 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 II-XII intact, confused, nl speech, other (generalised weakness ) Results Result Diagram: 03/16/1691703/16/16917 Results 24 hrs Laboratory Tests Test 03/17/16 11:36 03/17/16 17:11 03/17/16 20:11 03/18/16 00:13 Bedside Glucose 105 102 103 Vancomycin Level Trough 20.0 Test 03/18/16 07:52 Bedside Glucose 118 Medications Medications Current Medications Folic Acid (Folic Acid) 5 mg DAILY PO Last administered on 03/18/16 08:48; Admin Dose 5 MG; Start 03/11/16 at 09:00 Oxycodone HCl 10 mg 10 mg Q4H PRN PO PAIN Last administered on 03/17/16 01:01; Admin Dose 10 MG; Start 03/10/16 at 15:00 Sodium Chloride (NS) 1,000 ml @ 75 mls/hr [id number] IV Last administered on 05:46; Admin Dose 75 MLS/HR; Start 03/10/16 at 14:41 Ondansetron HCl (Zofran Inj) 4 mg Q6H PRN IV NAUSEA AND/OR VOMITING Last administered on 03/17/16 23:15; Admin Dose 4 MG; Start 03/10/16 at 15:00 Acetaminophen (Tylenol Tab) 650 mg Q6H PRN PO PAIN LEVEL 1-3 OR FEVER; Start at 15:00 Morphine Sulfate (morphine) 2 mg Q4H PRN IV SEVERE PAIN LEVEL 7-10 Last administered on 03/17/16 21:09; Admin Dose 2 MG; Start 03/10/16 at 15:00 Docusate Sodium (Colace) 100 mg Q12H PRN PO CONSTIPATION; Start 03/10/16 at 15: 00 Magnesium Hydroxide (Milk Of Mag) 30 ml DAILY PRN PO CONSTIPATION; Start at 15:00 Bisacodyl (Dulcolax Supp) 10 mg DAILY PRN [place] CONSTIPATION; Start 03/10/16 at 15 :00 Miscellaneous Information 1 ea NOTE XX ; Start 03/10/16 at 16:00 Glucose (Glutose) 15 gm Q15M PRN PO DECREASED GLUCOSE; Start 03/10/16 at 16:00 Glucose (Glutose) 22.5 gm Q15M PRN PO DECREASED GLUCOSE; Start 03/10/16 at 16: 00 Dextrose (D50w Syringe) 25 ml Q15M PRN IV DECREASED GLUCOSE; Start 03/10/16 at 16:00 Dextrose (D50w Syringe) 50 ml Q15M PRN IV DECREASED GLUCOSE; Start 03/10/16 at 16:00 Glucagon (Glucagen) 1 mg Q15M PRN IM DECREASED GLUCOSE; Start 03/10/16 at 16:00 Glucose (Glutose) 15 gm Q15M PRN BUCCAL DECREASED GLUCOSE; Start 03/10/16 at 16 :00 Collagenase (Santyl) 1 applic DAILY TOP Last administered on 03/18/16 08:48; Admin Dose 1 APPLIC; Start 03/11/16 at 15:30 Famotidine (Pepcid) 20 mg DAILY PO Last administered on 03/18/16 08:48; Admin Dose 20 MG; Start 03/16/16 at 09:00 Morphine Sulfate 30 mg 30 mg Q8 PO Last administered on 03/18/16 05:45; Admin Dose 30 MG; Start 03/16/16 at 14:00 Vancomycin HCl (Vancocin) 100 ml @ 100 mls/hr Q12H IVPB Last administered on 09:28; Admin Dose 100 MLS/HR; Start 03/18/16 at 08:00 JOSE TORIBIO Mar 18, 2016 11:03
--- NOTE | 2016-03-18 14:56 | CONS ---
Date/Time of Note Date/Time of Note DATE: 03/18/16 TIME: 14:55 Assessment/Plan Assessment/Plan Chief Complaint/Hosp Course 61 year old woman with widely metastatic spindle cell renal cell carcinoma with invasion of the left renal vein and retroperitoneal lymphadenopathy, and suspicion for adrenal metastasis, skeletal metastases and pulmonary metastases, previously admitted for GIB bleed, now with progressive weakness and anemia. New CT scan demonstrates progressive disease. - Due to poor PS ECOG 4, further therapy with sutent may do more harm than good. Although not chemotherapy, oral TKIs may have side effects including hand -foot syndrome, fatigue, diarrhea, hypertension, mucositis that may be difficult for her to manage in her weakened state. I have discussed the case with her daughter Bev ([phone]). Patient now DNR and open to talking to hospice/palliative care agencies. - Agree with hospice evaluation. Patient now comfort care, awaiting SNF placement once one found by hospice. Problems: Consultation Date/Type/Reason Admit Date/Time Mar 10, 2016 at 13:34 Type of Consultation: Hematology/Oncology Referring Provider: JOSE TORIBIO 24 HR Interval Summary Free Text/Dictation Patient appears more comfortable today. Exam/Review of Systems Vital Signs Vitals Vital Signs Date Time Temp Pulse Resp B/P Pulse Ox O2 Delivery O2 Flow Rate FiO2 03/18/16 07:28 98.6 105 16 128/60 94 Intake and Output 03/17/16 03/17/16 03/18/16 14:59 22:59 06:59 Intake Total 2265 ml 700 ml Balance 2265 ml 700 ml Exam Constitutional: distress, frail Psych: anxiety, depression Head: normocephalic Eyes: nl conjunctiva ENMT: nl external ears & nose Neck: non-tender, supple Respiratory: clear to auscultation Cardiovascular: nl pulses, regular rate and rhythm Gastrointestinal: soft, tender to palpation Musculoskeletal: nl extremities to inspection, nl gait and stance Results Result Diagram: 03/16/1618 03/16/16 0918 Results 24 hrs Laboratory Tests Test 03/17/16 17:11 03/17/16 20:11 03/18/16 00:13 03/18/16 07:52 Bedside Glucose 102 103 118 Vancomycin Level Trough 20.0 Test 03/18/16 11:53 Bedside Glucose 114 Medications Medications Current Medications Folic Acid (Folic Acid) 5 mg DAILY PO Last administered on 03/18/16 08:48; Admin Dose 5 MG; Start 03/11/16 at 09:00 Oxycodone HCl 10 mg 10 mg Q4H PRN PO PAIN Last administered on 03/17/16 01:01; Admin Dose 10 MG; Start 03/10/16 at 15:00 Sodium Chloride (NS) 1,000 ml @ 75 mls/hr [id number] IV Last administered on 05:46; Admin Dose 75 MLS/HR; Start 03/10/16 at 14:41 Ondansetron HCl (Zofran Inj) 4 mg Q6H PRN IV NAUSEA AND/OR VOMITING Last administered on 03/17/16 23:15; Admin Dose 4 MG; Start 03/10/16 at 15:00 Acetaminophen (Tylenol Tab) 650 mg Q6H PRN PO PAIN LEVEL 1-3 OR FEVER; Start at 15:00 Morphine Sulfate (morphine) 2 mg Q4H PRN IV SEVERE PAIN LEVEL 7-10 Last administered on 03/17/16 21:09; Admin Dose 2 MG; Start 03/10/16 at 15:00 Docusate Sodium (Colace) 100 mg Q12H PRN PO CONSTIPATION; Start 03/10/16 at 15: 00 Magnesium Hydroxide (Milk Of Mag) 30 ml DAILY PRN PO CONSTIPATION; Start at 15:00 Bisacodyl (Dulcolax Supp) 10 mg DAILY PRN [place] CONSTIPATION; Start 03/10/16 at 15 :00 Miscellaneous Information 1 ea NOTE XX ; Start 03/10/16 at 16:00 Glucose (Glutose) 15 gm Q15M PRN PO DECREASED GLUCOSE; Start 03/10/16 at 16:00 Glucose (Glutose) 22.5 gm Q15M PRN PO DECREASED GLUCOSE; Start 03/10/16 at 16: 00 Dextrose (D50w Syringe) 25 ml Q15M PRN IV DECREASED GLUCOSE; Start 03/10/16 at 16:00 Dextrose (D50w Syringe) 50 ml Q15M PRN IV DECREASED GLUCOSE; Start 03/10/16 at 16:00 Glucagon (Glucagen) 1 mg Q15M PRN IM DECREASED GLUCOSE; Start 03/10/16 at 16:00 Glucose (Glutose) 15 gm Q15M PRN BUCCAL DECREASED GLUCOSE; Start 03/10/16 at 16 :00 Collagenase (Santyl) 1 applic DAILY TOP Last administered on 03/18/16 08:48; Admin Dose 1 APPLIC; Start 03/11/16 at 15:30 Famotidine (Pepcid) 20 mg DAILY PO Last administered on 03/18/16 08:48; Admin Dose 20 MG; Start 03/16/16 at 09:00 Morphine Sulfate 30 mg 30 mg Q8 PO Last administered on 03/18/16 14:04; Admin Dose 30 MG; Start 03/16/16 at 14:00 Vancomycin HCl (Vancocin) 100 ml @ 100 mls/hr Q12H IVPB Last administered on 09:28; Admin Dose 100 MLS/HR; Start 03/18/16 at 08:00 TOROSENDA MD Mar 18, 2016 14:56
[2016-03-18] MEDS: morphine 2 MG INJ IV PRN (16:49)
[2016-03-18 19:49] VITALS: BP 138/65; RESP 20
[2016-03-18] MEDS: ONDANSETRON 4 MG INJ IV PRN (21:53)
[2016-03-19] MEDS: ONDANSETRON 4 MG INJ IV PRN (04:09)
[2016-03-19] MEDS: morphine (ER) 30 MG TAB PO SCH ×2 (05:41→13:12)
[2016-03-19 06:39] LABS: CREATININE 0.4 mg/dl (0.44-1.00)
[2016-03-19 07:29] VITALS: BP 134/63; RESP 23
[2016-03-19] MEDS: INSULIN ASPART [NOVOLOG] 3 ML PEN SC SCH ×2 (08:06→12:15)
[2016-03-19] MEDS: FAMOTIDINE 20 MG TAB PO SCH (08:24)
[2016-03-19] MEDS: FOLIC ACID 1 MG TAB PO SCH (08:24)
[2016-03-19] MEDS: VANCOMYCIN 500MG/NS (PMX) 100 ML IVPB SCH (08:24)
[2016-03-19] MEDS: COLLAGENASE 30 GM TUBE TOP SCH (08:24)
--- NOTE | 2016-03-19 10:27 | PN ---
Date/Time of Note Date/Time of Note DATE: 03/19/16 TIME: 10:16 Assessment/Plan VTE Prophylaxis VTE Prophylaxis Intervention: SCD's Lines/Catheters IV Catheter Type (from Nrsg): Peripheral IV Urinary Cath still in place: No Assessment/Plan Assessment/Plan 61-year-old, unfortunate female with: 1. Acute on chronic anemia, generalized weakness. Poorly functioning bone marrow based on low retic count Only transfuse if recommended by Hematology Extremely poor prognosis for underlying widespread spindle cell carcinoma with no appropriate treatment option currently Appreciate all recommendations from Oncology, continue supportive care, Palliative/hospice care placement pending today Comfort care for now on Narcotics 2. 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 Mostly unchanged on CAT scan except for more prominent left rib metastatic lesion. Extremely poor overall functional status, pain likely related to large mass and bone mets, will optimize pain meds Per Oncology, patient really has no chemotherapeutic options good enough currently. Patient now DNR and on hospice with [facility]. Titrate MS Contin and oxycodone up for better pain control while on Hospice. 3. Hypertension. Currently normotensive. D/c IVF on discharge. 4. Diabetes mellitus: Sliding scale insulin, soft diet as tolerated 5. Lethargic, generalized weakness, secondary anorexia and metastatic carcinoma. Comfort measures now 6. Coag neg staph x 2 blood cx, unclear significant so repeat blood cx NGTD. Discontinue Vancomycin at discharge. Prophylaxis. Protonix for gastrointestinal prophylaxis. SCDs to lower extremity for deep vein thrombosis prophylaxis. Disposition: Appreciate Oncology recommendations, DNR now and on Hospice with [facility] awaiting SNF placement for [facility] hospice care today. Subjective 24 Hr Interval Summary Free Text/Dictation Patient remains stable and afebrile Pain controlled and d/c to SNF with hospice Will d/c abx at discharge today Exam/Review of Systems Vital Signs Vitals Vital Signs Date Time Temp Pulse Resp B/P Pulse Ox O2 Delivery O2 Flow Rate FiO2 03/19/16 07:29 97.9 107 23 134/63 98 Intake and Output 03/18/16 03/18/16 03/19/16 15:00 23:00 07:00 Intake Total 1700 ml 740 ml Balance 1700 ml 740 ml Exam Constitutional: alert, frail, obese, oriented, other (bed bound) Respiratory: clear to auscultation, normal air movement Cardiovascular: nl pulses, regular rate and rhythm Gastrointestinal: non-tender, soft Musculoskeletal: nl extremities to inspection, other (no edema, clubbing or cyanosis ) Extremities: normal pulses 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: 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 II-XII intact, nl mental status, nl speech Results Result Diagram: 03/16/16 0918 03/19/16 0557 Results 24 hrs Laboratory Tests Test 03/18/16 11:53 03/18/16 16:51 03/18/16 21:47 03/19/16 05:57 Bedside Glucose 114 115 120 Blood Urea Nitrogen 6 L Creatinine 0.40 L Test 03/19/16 07:56 Bedside Glucose 122 Medications Medications Current Medications Folic Acid (Folic Acid) 5 mg DAILY PO Last administered on 03/18/16 08:48; Admin Dose 5 MG; Start 03/11/16 at 09:00 Oxycodone HCl 10 mg 10 mg Q4H PRN PO PAIN Last administered on 03/17/16 01:01; Admin Dose 10 MG; Start 03/10/16 at 15:00 Sodium Chloride (NS) 1,000 ml @ 75 mls/hr [id number] IV Last administered on 21:42; Admin Dose 75 MLS/HR; Start 03/10/16 at 14:41 Ondansetron HCl (Zofran Inj) 4 mg Q6H PRN IV NAUSEA AND/OR VOMITING Last administered on 03/19/16 04:09; Admin Dose 4 MG; Start 03/10/16 at 15:00 Acetaminophen (Tylenol Tab) 650 mg Q6H PRN PO PAIN LEVEL 1-3 OR FEVER; Start at 15:00 Morphine Sulfate (morphine) 2 mg Q4H PRN IV SEVERE PAIN LEVEL 7-10 Last administered on 03/18/16 16:49; Admin Dose 2 MG; Start 03/10/16 at 15:00 Docusate Sodium (Colace) 100 mg Q12H PRN PO CONSTIPATION; Start 03/10/16 at 15: 00 Magnesium Hydroxide (Milk Of Mag) 30 ml DAILY PRN PO CONSTIPATION; Start at 15:00 Bisacodyl (Dulcolax Supp) 10 mg DAILY PRN [place] CONSTIPATION; Start 03/10/16 at 15 :00 Miscellaneous Information 1 ea NOTE XX ; Start 03/10/16 at 16:00 Glucose (Glutose) 15 gm Q15M PRN PO DECREASED GLUCOSE; Start 03/10/16 at 16:00 Glucose (Glutose) 22.5 gm Q15M PRN PO DECREASED GLUCOSE; Start 03/10/16 at 16: 00 Dextrose (D50w Syringe) 25 ml Q15M PRN IV DECREASED GLUCOSE; Start 03/10/16 at 16:00 Dextrose (D50w Syringe) 50 ml Q15M PRN IV DECREASED GLUCOSE; Start 03/10/16 at 16:00 Glucagon (Glucagen) 1 mg Q15M PRN IM DECREASED GLUCOSE; Start 03/10/16 at 16:00 Glucose (Glutose) 15 gm Q15M PRN BUCCAL DECREASED GLUCOSE; Start 03/10/16 at 16 :00 Collagenase (Santyl) 1 applic DAILY TOP Last administered on 03/19/16 08:24; Admin Dose 1 APPLIC; Start 03/11/16 at 15:30 Famotidine (Pepcid) 20 mg DAILY PO Last administered on 03/19/16 08:24; Admin Dose 20 MG; Start 03/16/16 at 09:00 Morphine Sulfate 30 mg 30 mg Q8 PO Last administered on 03/19/16 05:41; Admin Dose 30 MG; Start 03/16/16 at 14:00 Vancomycin HCl (Vancocin) 100 ml @ 100 mls/hr Q12H IVPB Last administered on 08:24; Admin Dose 100 MLS/HR; Start 03/18/16 at 08:00 JOSE TORIBIO Mar 19, 2016 10:27
--- NOTE | 2016-03-19 13:22 | CONS ---
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 New CT scan demonstrates progressive disease. - Due to poor PS ECOG 4, further therapy with sutent may do more harm than good. Although not chemotherapy, oral TKIs may have side effects including hand -foot syndrome, fatigue, diarrhea, hypertension, mucositis that may be difficult for her to manage in her weakened state. I have discussed the case with her daughter Bev ([phone]). Patient now DNR and open to talking to hospice/palliative care agencies. - Agree with hospice evaluation. Patient now comfort care, awaiting SNF placement once one found by hospice. Problems: Consultation Date/Type/Reason Admit Date/Time Mar 10, 2016 at 13:34 Type of Consultation: Hematology/Oncology Referring Provider: JOSE TORIBIO 24 HR Interval Summary Free Text/Dictation Patient states pain improved. Exam/Review of Systems Vital Signs Vitals Vital Signs Date Time Temp Pulse Resp B/P Pulse Ox O2 Delivery O2 Flow Rate FiO2 03/19/16 07:29 97.9 107 23 134/63 98 Intake and Output 03/18/16 03/18/16 03/19/16 15:00 23:00 07:00 Intake Total 1700 ml 740 ml Balance 1700 ml 740 ml Exam Constitutional: distress, frail Psych: anxiety, depression Head: normocephalic Eyes: nl conjunctiva ENMT: nl external ears & nose Neck: non-tender, supple Respiratory: rhonchi bilaterally Cardiovascular: nl pulses, regular rate and rhythm Gastrointestinal: soft, tender to palpation Musculoskeletal: nl extremities to inspection, nl gait and stance Results Result Diagram: 03/16/16 0918 03/19/16 0557 Results 24 hrs Laboratory Tests Test 03/18/16 16:51 03/18/16 21:47 03/19/16 05:57 03/19/16 07:56 Bedside Glucose 115 120 122 Blood Urea Nitrogen 6 L Creatinine 0.40 L Test 03/19/16 11:58 Bedside Glucose 124 Medications Medications Current Medications Folic Acid (Folic Acid) 5 mg DAILY PO Last administered on 03/18/16 08:48; Admin Dose 5 MG; Start 03/11/16 at 09:00 Oxycodone HCl (Roxicodone) 10 mg Q4H PRN PO PAIN Last administered on 03/17/16 01:01; Admin Dose 10 MG; Start 03/10/16 at 15:00 Ondansetron HCl (Zofran Inj) 4 mg Q6H PRN IV NAUSEA AND/OR VOMITING Last administered on 03/19/16 04:09; Admin Dose 4 MG; Start 03/10/16 at 15:00 Acetaminophen (Tylenol Tab) 650 mg Q6H PRN PO PAIN LEVEL 1-3 OR FEVER; Start at 15:00 Morphine Sulfate (morphine) 2 mg Q4H PRN IV SEVERE PAIN LEVEL 7-10 Last administered on 03/18/16 16:49; Admin Dose 2 MG; Start 03/10/16 at 15:00 Docusate Sodium (Colace) 100 mg Q12H PRN PO CONSTIPATION; Start 03/10/16 at 15: 00 Magnesium Hydroxide (Milk Of Mag) 30 ml DAILY PRN PO CONSTIPATION; Start at 15:00 Bisacodyl (Dulcolax Supp) 10 mg DAILY PRN [place] CONSTIPATION; Start 03/10/16 at 15 :00 Miscellaneous Information 1 ea NOTE XX ; Start 03/10/16 at 16:00 Glucose (Glutose) 15 gm Q15M PRN PO DECREASED GLUCOSE; Start 03/10/16 at 16:00 Glucose (Glutose) 22.5 gm Q15M PRN PO DECREASED GLUCOSE; Start 03/10/16 at 16: 00 Dextrose (D50w Syringe) 25 ml Q15M PRN IV DECREASED GLUCOSE; Start 03/10/16 at 16:00 Dextrose (D50w Syringe) 50 ml Q15M PRN IV DECREASED GLUCOSE; Start 03/10/16 at 16:00 Glucagon (Glucagen) 1 mg Q15M PRN IM DECREASED GLUCOSE; Start 03/10/16 at 16:00 Glucose (Glutose) 15 gm Q15M PRN BUCCAL DECREASED GLUCOSE; Start 03/10/16 at 16 :00 Collagenase (Santyl) 1 applic DAILY TOP Last administered on 03/19/16 08:24; Admin Dose 1 APPLIC; Start 03/11/16 at 15:30 Famotidine (Pepcid) 20 mg DAILY PO Last administered on 03/19/16 08:24; Admin Dose 20 MG; Start 03/16/16 at 09:00 Morphine Sulfate (Ms Contin (Er)) 30 mg Q8 PO Last administered on 03/19/16 13: 12; Admin Dose 30 MG; Start 03/16/16 at 14:00 ROSENDA MARLOW MD Mar 19, 2016 13:22
[2016-03-19] MEDS: morphine 2 MG INJ IV PRN (15:51)
== END 2016-03-19 17:40 | disposition hospice, inpatient (51) | DRG 543 ==
LOC: E/R 12:42 → MS2 13:34
PROVIDERS: ADMIT Internal Medicine; ATTEND Internal Medicine
PROC: 30233N1 Transfusion of Nonautologous Red Blood Cells into Peripheral Vein, Percutaneous Approach (ICD-10-PCS; principal; 2016-03-10)
DX: C79.51 Secondary malignant neoplasm of bone (principal); C64.9 Malignant neoplasm of unspecified kidney, except renal pelvis; C78.00 Secondary malignant neoplasm of unspecified lung; C79.70 Secondary malignant neoplasm of unspecified adrenal gland; I95.9 Hypotension, unspecified; R63.0 Anorexia; N39.0 Urinary tract infection, site not specified; E11.9 Type 2 diabetes mellitus without complications; D63.0 Anemia in neoplastic disease; E86.1 Hypovolemia; I10 Essential (primary) hypertension; G89.3 Neoplasm related pain (acute) (chronic); D64.9 Anemia, unspecified; R59.1 Generalized enlarged lymph nodes; Z66 Do not resuscitate; R11.2 Nausea with vomiting, unspecified; Z68.32 Body mass index [BMI] 32.0-32.9, adult; B95.8 Unspecified staphylococcus as the cause of diseases classified elsewhere
CPT/HCPCS: 36430; 74177; 80048; 80053; 80202; 82150; 82565; 82607; 82728; 82746; 82962; 83540; 83605; 83615; 83690; 83735; 84100; 84484; 84520; 84560; 85014; 85018; 85025; 85045; 85610; 85730; 86850; 86900; 86901; 86920; 87040; 93005; 96374; 96375; J1815; J2270; J2405; J3370; J3475; J3480; J7030; J7040; P9016; Q9967